=== PATIENT | male | born 1975 | race Hispanic/Latino ===

== ENCOUNTER 2018-06-12 17:04 | Inpatient (IN) | payer OTHER, SELFPAY ==
[~2018-06-12 17:04] MED LIST: ISOVUE-370 76%-LOCM 1 ML ONE
[2018-06-12] MEDS ORDERED: Amiodarone 150 MG/3 ML VIAL ONE (17:32)
[2018-06-12 17:42] LABS: Actual Bicarbonate (HCO3a) 3.2 mEq/L (22-28); Analyzer IN Cardio ER; Base Excess (BEa) -21.5 mEq/L (-2.0 to +3.0); Calcium, Ionized 1.47 mmol/L (1.12-1.30); Carboxyhemoglobin (COHb) 0.3 gm% (0.0-3.0); Hemoglobin (Hb) 17.7 g/dL (14.0-18.0); O2 Tension (PaO2) 133.1 mmHg (80.0-100.0); Potassium - ABG Lab 1.56 mmol/L (3.70-5.30)
[2018-06-12] MEDS ORDERED: Aspirin Chewable 81 MG TAB ONE (17:42)
[2018-06-12] MEDS ORDERED: Amiodarone 150 MG, Admixture Fee 1 EACH in Dextrose 5% in Water 100 ML IVPB SCH (17:45)
[2018-06-12] MEDS ORDERED: Amiodarone 450 MG, Admixture Fee 1 EACH in Dextrose 5% in Water 250 ML IVPB SCH (17:45)
--- NOTE | 2018-06-12 17:45 | RAD ---
FRONTAL RADIOGRAPH CHEST 06/12/18 COMPARISON: None. HISTORY: Short of breath. FINDINGS: Lungs are clear. Heart and mediastinal contours are unremarkable. No focal consolidation or alveolar edema. IMPRESSION: No acute findings. POS: [facility]
[2018-06-12 17:56] LABS: pH, Arterial 7.19 (7.35-7.45)
[2018-06-12 17:57] LABS: CO2 Tension 8.6 mmHg (35.0-45.0); Puncture Site L.B.
[2018-06-12 18:23] LABS: Hemoglobin 17.3 g/dL (14.0-18.0); Mean Corpuscular HGB CONC 33.7 g/dL (32.0-36.0); Mean Corpuscular Hemoglobin 31.3 pg (27.0-31.0); Mean Corpuscular Volume 92.9 fL (78.0-98.0); Mean Platelet Volume 8.4 fL (7.4-10.4); Platelet Count 420 thou/uL (130-400); RBC Distribution Width 12.1 % (11.5-14.5); Red Blood Cell (RBC) Count 5.53 mill/uL (4.70-6.10); White Blood Cell (WBC) Count 22.8 thou/uL (4.8-10.8)
[2018-06-12 18:39] LABS: Band 42 % (5-11); Eosinophils 1 % (0-10); Lymphocytes 9 % (21-51); MDiff Complete? YES; Monocytes 7 % (0-10); Neutrophil 41 % (42-75); Platelet Morphology Comment Appears Increased
[2018-06-12 18:48] LABS: ALT (SGPT) 95 U/L (8-55); AST (SGOT) 43 U/L (5-34); Albumin 3.5 g/dL (3.5-5.0); Alkaline Phosphatase 191 U/L (40-150); BUN (Urea Nitrogen) 24 mg/dL (8.9-20.6); Bilirubin, Total 0.7 mg/dL (0.2-1.2); CK (CPK) 298 U/L (30-200); Calc. Creatinine Clearance 0 mL/min (70-130); Chloride 95 mmol/L (98-107); Estimated GFR-MDRD 52; Globulin 3.3 g/dL (2.4-3.5); Lipase 11 U/L (8-78); Protein, Total 6.8 g/dL (6.0-8.3); Sodium 122 mmol/L (136-145)
[2018-06-12 18:51] LABS: Carbon Dioxide Less than 8 mmol/L (22-29); Glucose 599 mg/dL (70-105); Potassium 1.2 mmol/L (3.5-5.1)
[2018-06-12] MEDS ORDERED: Potassium Chloride 20 MEQ TAB ONE (18:57)
[2018-06-12] MEDS ORDERED: Potassium Chloride 40 MEQ in Sodium Chloride 0.45% 1,000 ML IV SCH (19:15)
--- NOTE | 2018-06-12 19:51 | RAD ---
SEMIUPRIGHT FRONTAL CHEST RADIOGRAPH: 06/12/18 COMPARISON: Prior study on same day. HISTORY: Fever for two days. FINDINGS: There is a right sided vascular catheter, distal tip extending into the region of the right atrium. N o pneumothorax, pleural fluid, lobar consolidation, or alveolar edema. IMPRESSION: No focal consolidation or alveolar edema. POS: [facility]
--- NOTE | 2018-06-12 20:32 | RAD ---
PORTABLE SEMIUPRIGHT FRONTAL CHEST RADIOGRAPH 06/12/18 COMPARISON: Prior study on same day. FINDINGS: Line placement. FINDINGS: Right sided vascular catheter noted, distal tip overlying the expected location of the cavoatrial constantino ction. Heart and mediastinal contours are stable. No pneumothorax, pleural fluid, focal consolidation , or alveolar edema. IMPRESSION: Right sided vascular catheter as above. POS: [facility]
[2018-06-12] MEDS ORDERED: Magnesium 2 GM/50 ML BAG (IN WATER) ONE (20:41)
[2018-06-12 20:47] LABS: Bilirubin Moderate (Negative); Blood, Urine Large (Negative); Clarity CLEAR (Clear); Glucose, Urine (Dipstick) >=1000 mg/dL (Negative); Leukocyte Negative (Negative); Nitrite Negative (Negative); Protein, Urine (Dipstick) 100 mg/dL (Neg-Trace); Specific Gravity, Urine 1.022 (1.002-1.036); pH, Urine 6.5 (5.0-9.0)
[2018-06-12 20:50] LABS: Bacteria/HPF None Seen HPF (None Seen); RBC/HPF 0-3 HPF (0-3); WBC/HPF 0-3 HPF (0-3)
[2018-06-12 20:51] LABS: Hyaline Casts/LPF 0-3 HYALINE CAST LPF (0-3 Hyaline)
[2018-06-12 21:05] LABS: BUN (Urea Nitrogen) 24 mg/dL (8.9-20.6); Calc. Creatinine Clearance 0 mL/min (70-130); Calcium 9.5 mg/dL (7.8-10.44); Chloride 99 mmol/L (98-107); Estimated GFR-MDRD 56; Sodium 125 mmol/L (136-145)
[2018-06-12 21:07] LABS: Carbon Dioxide Less than 8 mmol/L (22-29); Glucose 558 mg/dL (70-105); Potassium 1.3 mmol/L (3.5-5.1)
--- NOTE | 2018-06-12 21:53 | CT ---
CT ANGIOGRAM CHEST 06/12/18 COMPARISON: None. HISTORY: Assess for pulmonary arterial embolism. TECHNIQUE: Axial CT imaging at 2.5 mm intervals through the chest with IV contrast using CT angiogram protocol. Coronal and sagittal 3D reformatted imaging obtained. FINDINGS: Motion artifact limits detailed assessment of the distal pulmonary arterial vasculature. Centrally, t here is no filling defect seen to suggest the presence of pulmonary arterial embolism. There is no axillary, mediastinal, or hilar adenopathy. Incomplete evaluation of the imaged upper abdomen demonstrates nonspecific distention of small bowel loops within the left upper quadrant. the hepatic parenchyma appears hypodense suggesting a degree of steatosis. No pleural, pericardial, or mediastinal fluid is seen. there is mild distal esophageal wall thickenin g versus underdistention. There is no pneumothorax evident on either side. Lung parenchyma demonstrat es no focal opacity. Review of the osseous structures demonstrates no worrisome lytic or blastic lesi on. IMPRESSION: No evidence for a central pulmonary arterial embolism. Please see above discussion. Of note, there ar e incompletely evaluated dilated loops of small bowel noted within the left upper quadrant which coul d signify ileus or obstruction. POS: [facility]
[2018-06-12 22:06] VITALS: BMI 42.7
[2018-06-12] MEDS ORDERED: Sodium Chloride 0.9% 1,000 ML IV PRN ×4 (22:07)
[2018-06-12] MEDS ORDERED: Potassium Phosphate 15 MMOL in Sodium Chloride 0.9% 250 ML 250 ML IV PRN (22:07)
[2018-06-12] MEDS ORDERED: Magnesium Oxide 400 MG TAB PO PRN ×2 (22:07)
[2018-06-12] MEDS ORDERED: Potassium Chloride 40 MEQ in Premix Bag 1 BAG IVPB PRN (22:07)
[2018-06-12] MEDS ORDERED: NS 0.9% w/ 20 MEQ KCL 1,000 ML/1,000 ML BAG IV PRN ×2 (22:07)
[2018-06-12] MEDS ORDERED: Dextrose 5 %-0.45 % NaCl 1,000 ML IV PRN (22:07)
[2018-06-12] MEDS ORDERED: Magnesium 2 GM/NS 0.9% 100 ML 2 GM in Premix Bag 1 BAG IVPB PRN (22:07)
[2018-06-12] MEDS ORDERED: Potassium Phosphate 12 MMOL in Sodium Chloride 0.9% 250 ML 250 ML IV PRN (22:07)
[2018-06-12] MEDS ORDERED: CCU ELECTROLYTE REPLACEMENT PROTOCOL FS PRN (22:07)
[2018-06-12] MEDS ORDERED: Potassium Chloride 20 MEQ TAB PO PRN (22:07)
[2018-06-12] MEDS ORDERED: Potassium Chloride 40 MEQ in Sodium Chloride 0.9% 250 ML 250 ML IVPB PRN (22:07)
[2018-06-12] MEDS ORDERED: Potassium Phosphate 9 MMOL in Sodium Chloride 0.9% 100 ML IVPB PRN (22:07)
[2018-06-12] MEDS ORDERED: Dextrose 5% in Water 1,000 ML IV PRN (22:07)
[2018-06-12] MEDS ORDERED: Dextrose 50% Abboject 50 ML SYRINGE SLOW IVP PRN (22:07)
[2018-06-12] MEDS ORDERED: D5 1/2 NS w/20 mEq KCL 1,000 ML IV PRN (22:07)
[2018-06-12] MEDS ORDERED: ADD ELECTROLYTE REPLACEMENT SET TO PROFILE FS SCH (22:15)
[2018-06-12] MEDS ORDERED: HUMULIN R 100 UNITS in Sodium Chloride 0.9% 100 ML IVPB SCH (22:15)
[2018-06-12] MEDS ORDERED: Magnesium 2 GM/50 ML 2 GM in Premix Bag 1 BAG IVPB PRN (22:52)
[2018-06-12 22:58] LABS: Lactic Acid 0.9 mmol/L (0.5-2.2)
[2018-06-12] MEDS ORDERED: Potassium Chloride 20 MEQ in Premix Bag 1 BAG IVPB PRN (23:00)
[2018-06-12] MEDS ORDERED: Potassium Chloride 20 MEQ in Premix Bag 1 BAG IVPB SCH (23:15)
[2018-06-12] MEDS: Sodium Chloride 0.9% 1,000 ML IV SCH ×2 (23:35→23:36)
[2018-06-13 01:19] LABS: BUN (Urea Nitrogen) 24 mg/dL (8.9-20.6); Calc. Creatinine Clearance 157 mL/min (70-130); Calcium 9.4 mg/dL (7.8-10.44); Chloride 104 mmol/L (98-107); Estimated GFR-MDRD 66; Glucose 487 mg/dL (70-105); Magnesium 3.6 mg/dL (1.6-2.6); Sodium 127 mmol/L (136-145)
[2018-06-13 01:26] LABS: Carbon Dioxide Less than 8 mmol/L (22-29); Potassium 1.5 mmol/L (3.5-5.1)
[2018-06-13] MEDS: Potassium Chloride 20 MEQ in Premix Bag 1 BAG IVPB PRN ×6 (01:35→07:47)
--- NOTE | 2018-06-13 02:43 | CON ---
DATE OF CONSULTATION: 06/12/2018 This is 45 minutes of critical care time. REASON FOR CONSULTATION: Diabetic ketoacidosis in the setting of severe hypokalemia. HISTORY OF PRESENT ILLNESS: Mr. Oakley is a 43-year-old male, who basically is new to the medical system. He presents to the ER complaining of shortness of breath that started earlier this morning. When questioned more closely, the patient states that he has been feeling poorly for the last 3 weeks. He has gotten extremely dehydrated as he has not been eating or drinking very much. He states that he has had some nausea and vomiting. He has been unable to move his arms or legs very well for the last several hours. ER workup demonstrated new onset diabetic ketoacidosis. However, his potassium was extremely low at 1.9, which in itself is a surprising finding in someone with DKA. This patient has been appropriately and aggressively treated by Dr. Rosario in the ER. He was placed on BiPAP. He has been aggressively fluid resuscitated and had a central line placed for the purpose of being able to give potassium at a more diligent rate than usual. The patient has not received any insulin yet as to keep his potassium from going any further. The patient has also not received any bicarbonate therapy. PAST MEDICAL HISTORY: Essentially unremarkable as the patient says he has never gone to a doctor for medical care. ALLERGIES: PENICILLIN. MEDICATIONS: Prior to admission, none. SOCIAL HISTORY: This patient quit smoking about 15 years ago. He does smoke marijuana daily. 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 He drinks socially. FAMILY MEDICAL HISTORY: Unremarkable. REVIEW OF SYSTEMS: A 12-point review of systems is otherwise negative except as mentioned above. PHYSICAL EXAMINATION: VITAL SIGNS: His blood pressure is 136/76, pulse 94, respirations 26, O2 saturation 99% on BiPAP. GENERAL: He is awake. He is talkative. BiPAP mask. HEENT: His pupils are reactive. Sclerae icteric. Oropharynx clear. NECK: Demonstrates no JVD. LUNGS: Clear to auscultation, but his respiratory rate is slightly tachypneic. CARDIOVASCULAR: S1 and S2. Tachycardic without murmur. ABDOMEN: Soft, obese, nontender, and nondistended. EXTREMITIES: No clubbing, cyanosis, or edema. NEUROLOGICAL: He can move all 4 extremities. His strength is 4+/5 throughout. There are no focal deficits. He has full sensation intact throughout. Cranial nerves 2 through 12 are intact. LABORATORY DATA: Sodium 122, but corrects to 134 for glucose level, potassium 1.2, chloride 95, CO2 of 8, BUN 24, creatinine 1.5, calcium level is 10.0, magnesium 3.5, glucose 533, AST 43, ALT 95, alkaline phosphatase 191, CPK 298, troponin less than 0.01, BNP was 45. ABG; pH 7.19, pCO2 of 8.6, PO2 of 133 that was on 2 L nasal cannula. D-dimer 3.2. White blood cell count 22.8, hematocrit 51.4, and platelet count 420 with 41% neutrophils, 42% bands. Urinalysis demonstrated large amount of blood. He had ketones present. His tox screen showed beta hydroxybutyrate of 7.9. My preliminary review of CT angiogram of the chest did not show any evidence of pulmonary emboli. I do not see any infiltrates. He has a IJ line in an appropriate position. His EKG shows ST-segment depression, primarily in leads 2, 3, V5, and V6. He has U wave present. ASSESSMENT: 1. Diabetic ketoacidosis. 2. Severe hypokalemia. 3. Metabolic acidosis from the diabetic ketoacidosis. 4. Respiratory compromise secondary to patient's compensating efforts for the diabetic ketoacidosis. RECOMMENDATIONS: 1. Discussed this in detail with Dr. Rosario, also reviewed literature. This patient's glucose should not be corrected with insulin at this time until potassium is improved to a safe level. My review suggests that it needs to be around 2.7 before it is safe to start insulin. 2. Potassium needs to be aggressively repleted. I am reading that this can occur as rapidly as 5 millimoles per kg per hour. I think realistically 30 millimoles per hour would be reasonable on the patient. 3. He needs to have normal saline aggressively replaced. I think his corrected sodium is about 134, so I do not think we are in a situation where we have to worry about central pontine myelinolysis. 4. We will monitor his Accu-Cheks closely and start insulin once his potassium reaches about 2.8. At that point, insulin will be given very slowly as we are not in a hurry to correct his blood sugar. 5. Empiric antibiotics. Job ID: [id number]
--- NOTE | 2018-06-13 03:24 | HP ---
PRIMARY CARE PHYSICIAN: The patient does not have a primary care physician. CHIEF COMPLAINT: Stomach problems and vomiting. HISTORY OF PRESENT ILLNESS: Mr. Oakley is a pleasant 43-year-old gentleman who has had previously no known past medical history. He says it has been several years since he has seen a physician. He says that he noticed some problems about 2 weeks ago. He said he was having "stomach problems" in which he started vomiting and lost his appetite. He says he could not eat or drink anything. He says then he had problems with "his breathing being bad." This went on for several days and as a result, he came to the ER for evaluation. He was evaluated and found that his blood sugar was over 500. His bicarb was less than 8 and he had a potassium of 1.3, and his beta hydroxybutyrate is elevated, and he is being admitted for DKA as well as severe hypokalemia. The patient denies any other complaints such as fevers or chills. He says he denies any cough or congestion. He says he has been a bit constipated, but no diarrhea. He does admit to some "abdominal soreness," but otherwise no other complaints. REVIEW OF SYSTEMS: All systems were reviewed and are negative except for that mentioned in the history of present illness. PAST MEDICAL HISTORY: Significant for diverticulitis. PAST SURGICAL HISTORY: Significant for tonsillectomy. ALLERGIES: PENICILLIN. SOCIAL HISTORY: He is single. He has no children. He is a former smoker. He says he quit 15 years ago. He occasionally drink and he is a full code. FAMILY HISTORY: No history of any heritable diseases. MEDICATIONS: On admission were none. PHYSICAL EXAMINATION: GENERAL: He is awake and alert. He appears to be in some mild distress due to dyspnea. He is well developed and well nourished. VITAL SIGNS: Blood pressure was 136/76, heart rate 94, respiratory rate of 26, temperature, he is afebrile. HEENT: Pupils are equal, round, and reactive. Extraocular muscles are intact. Sclerae anicteric. Throat, there is no erythema, no exudates. NECK: No adenopathy. No bruits. LUNGS: Clear to auscultation. There is no wheezing, no rales, no rhonchi. CARDIOVASCULAR: He has a normal S1 and S2. I did not appreciate an S3 or S4. No murmurs, clicks, or rubs. ABDOMEN: Obese. It is soft. He has some diffuse tenderness. There is no rebound, no guarding, no organomegaly. EXTREMITIES: There is no clubbing or cyanosis. No edema. NEUROLOGICAL: His exam is grossly nonfocal. His muscle strength is 5/5 in both his upper and lower extremities. SKIN AND INTEGUMENT: There are no skin changes. No rash. LABORATORY DATA: White blood cell count is 22.8, hemoglobin 17.3, hematocrit 51.4, platelet count is 420. D-dimer is 3.19. His ABG; pH is 7.19, pCO2 is 8.6, pO2 is 133. Chemistry; sodium 125, potassium 3.1, chloride is 99, CO2 is less than 8, BUN of 24, creatinine 1.4, glucose is 558. Urinalysis is significant for large blood, moderate bilirubin, and 46 squamous cells. Chest x-ray, by my reading, he is borderline heart size with no increase in pulmonary vascular markings. EKG also, by my reading, he is in sinus rhythm, the rate is 86. He did have some ST-segment depression laterally and possible U wave as well. ASSESSMENT: This is a pleasant 43-year-old gentleman, who presents to the emergency room in diabetic ketoacidosis. He also has severe hypokalemia. The patient had no known history of diabetes mellitus prior to this, and this is likely which may have precipitated the diabetic ketoacidosis. 1. For diabetic ketoacidosis, he will be placed on IV fluid resuscitation. We will hold off on an insulin drip until his serum potassium comes with in a safer range. This has been discussed with the Pulmonary technical specialist here in the ER. Once his potassium is above 2.4 or so, then we can start an insulin drip. 2. Severe hypokalemia. This will be replaced. It is unclear whether this is related to vomiting losses. 3. Acute kidney injury. This is likely due to volume depletion. Hopefully, this should correct with fluid resuscitation. 4. Once the patient has improved clinically, then discussions can be made with regard to proper diabetic care and management and followup. Job ID: [id number]
[2018-06-13] MEDS: Sodium Chloride 0.9% 1,000 ML IV SCH ×5 (03:36→11:16)
[2018-06-13 05:13] LABS: BUN (Urea Nitrogen) 25 mg/dL (8.9-20.6); Calc. Creatinine Clearance 157 mL/min (70-130); Calcium 9.3 mg/dL (7.8-10.44); Carbon Dioxide Less than 8 mmol/L (22-29); Chloride 105 mmol/L (98-107); Estimated GFR-MDRD 66; Glucose 458 mg/dL (70-105); Magnesium 3.6 mg/dL (1.6-2.6); Phosphorus 1.3 mg/dL (2.3-4.7); Potassium 1.7 mmol/L (3.5-5.1); Sodium 127 mmol/L (136-145)
[2018-06-13] MEDS ORDERED: Potassium Phosphate 40 MMOL in Sodium Chloride 0.9% 500 ML IVPB SCH (08:00)
--- NOTE | 2018-06-13 08:25 | PRG ---
DATE OF SERVICE: 06/13/2018 TIME SPENT: 30 minutes of critical care time. SUBJECTIVE: The patient remains in the ICU. He has been able to come off the BiPAP. He looks comfortable. He says he feels better. He is still having trouble moving his large muscles. OBJECTIVE: VITAL SIGNS: His pulse is 88, blood pressure 120/64, O2 saturation 97%, respiratory rate 30, and his temperature is 98.0. His intake has been over his output has been 2625. Weight currently 306 pounds. HEENT: Unremarkable. NECK: No JVD. CHEST: Clear. CARDIAC: S1, S2 regular. ABDOMEN: Soft and obese. EXTREMITIES: No edema. NEUROLOGICAL: He moves all 4 extremities. LABORATORY DATA: Sodium 127; potassium 1.7, up from 1.2; chloride 105; CO2 of 8; BUN 25; creatinine 1.2; glucose 458; phosphorus 1.3; calcium 9.3; magnesium 3.6. ASSESSMENT: 1. Diabetic ketoacidosis. 2. Severe hypokalemia. 3. Metabolic acidosis secondary to diabetic ketoacidosis. PLAN: 1. We are continuing to aggressively replace his potassium with a goal of reaching 2.7 to 2.8 before starting insulin. 2. Replace phosphate. 3. Continue frequent lab checks. 4. BiPAP as needed. Job ID: [id number]
[2018-06-13] MEDS: Famotidine/PF 20 mg/2ml Vial SLOW IVP SCH ×2 (08:26→20:36)
[2018-06-13] MEDS: Enoxaparin Sodium 40 MG/0.4 ML SYRINGE SC SCH (08:26)
[2018-06-13] MEDS ORDERED: Prevnar 13-Val Conj/PF 0.5 ML SYRINGE IM ONE (09:00)
[2018-06-13 10:03] LABS: BUN (Urea Nitrogen) 24 mg/dL (8.9-20.6); Calc. Creatinine Clearance 151 mL/min (70-130); Calcium 8.9 mg/dL (7.8-10.44); Carbon Dioxide Less than 8 mmol/L (22-29); Chloride 109 mmol/L (98-107); Estimated GFR-MDRD 63; Glucose 400 mg/dL (70-105); Magnesium 3.8 mg/dL (1.6-2.6); Phosphorus 1.6 mg/dL (2.3-4.7); Potassium 2.7 mmol/L (3.5-5.1); Sodium 131 mmol/L (136-145)
[2018-06-13 13:40] LABS: BUN (Urea Nitrogen) 25 mg/dL (8.9-20.6); Calc. Creatinine Clearance 157 mL/min (70-130); Calcium 8.8 mg/dL (7.8-10.44); Carbon Dioxide Less than 8 mmol/L (22-29); Chloride 110 mmol/L (98-107); Estimated GFR-MDRD 66; Glucose 402 mg/dL (70-105); Magnesium 3.5 mg/dL (1.6-2.6); Phosphorus 2.5 mg/dL (2.3-4.7); Potassium 3.2 mmol/L (3.5-5.1); Sodium 132 mmol/L (136-145)
[2018-06-13] MEDS ORDERED: Dextrose 5% in Water 1,000 ML IV PRN (14:35)
[2018-06-13] MEDS ORDERED: Dextrose 5 %-0.45 % NaCl 1,000 ML IV PRN (14:35)
[2018-06-13] MEDS ORDERED: Sodium Chloride 0.9% 1,000 ML IV PRN ×4 (14:35)
[2018-06-13] MEDS ORDERED: Potassium Phosphate 15 MMOL in Sodium Chloride 0.9% 250 ML 250 ML IV PRN (14:35)
[2018-06-13] MEDS ORDERED: Potassium Phosphate 12 MMOL in Sodium Chloride 0.9% 250 ML 250 ML IV PRN (14:35)
[2018-06-13] MEDS ORDERED: Magnesium 2 GM/NS 0.9% 100 ML 2 GM in Premix Bag 1 BAG IVPB PRN (14:35)
[2018-06-13] MEDS ORDERED: Potassium Chloride 40 MEQ in Sodium Chloride 0.9% 250 ML 250 ML IVPB PRN (14:35)
[2018-06-13] MEDS ORDERED: Dextrose 50% Abboject 50 ML SYRINGE SLOW IVP PRN (14:35)
[2018-06-13] MEDS ORDERED: Magnesium Oxide 400 MG TAB PO PRN ×2 (14:35)
[2018-06-13] MEDS ORDERED: CCU ELECTROLYTE REPLACEMENT PROTOCOL FS PRN (14:35)
[2018-06-13] MEDS ORDERED: Potassium Chloride 20 MEQ TAB PO PRN (14:35)
[2018-06-13] MEDS: Potassium Chloride 40 MEQ in Premix Bag 1 BAG IVPB PRN ×2 (14:41→17:46)
[2018-06-13] MEDS: NS 0.9% w/ 20 MEQ KCL 1,000 ML/1,000 ML BAG IV PRN ×4 (14:42→22:25)
[2018-06-13] MEDS ORDERED: Insulin Regular 300 UNITS/3 ML VIAL IVP SCH (14:45)
[2018-06-13] MEDS: Calcium Carbonate 500 MG ChewTAB PO PRN ×2 (15:17→19:34)
[2018-06-13] MEDS: HUMULIN R 100 UNITS in Sodium Chloride 0.9% 100 ML IVPB SCH ×2 (15:36→19:54)
[2018-06-13] MEDS ORDERED: Labetalol HCl 100 MG/20 ML VIAL ONE (17:12)
[2018-06-13 17:42] LABS: BUN (Urea Nitrogen) 23 mg/dL (8.9-20.6); Calc. Creatinine Clearance 166 mL/min (70-130); Calcium 8.5 mg/dL (7.8-10.44); Carbon Dioxide Less than 8 mmol/L (22-29); Chloride 116 mmol/L (98-107); Estimated GFR-MDRD 70; Glucose 287 mg/dL (70-105); Magnesium 2.9 mg/dL (1.6-2.6); Potassium 2.6 mmol/L (3.5-5.1); Sodium 137 mmol/L (136-145)
[2018-06-13] MEDS ORDERED: Potassium Phosphate 20 MMOL in Sodium Chloride 0.9% 250 ML 250 ML IV SCH (19:00)
--- NOTE | 2018-06-13 19:41 | PDOC.PN ---
- Subjective Encounter Start Date: 06/13/18 Encounter Start Time: 19:39 Subjective: Seen and examined still ill looking - Objective Vital Signs & Weight: Vital Signs (12 hours) Temp Pulse Pulse Ox 06/13/18 17:46 83 06/13/18 15:49 98.0 F 06/13/18 15:45 98.0 F 06/13/18 11:48 97.4 F L 06/13/18 11:00 97.8 F 06/13/18 08:00 96 Weight Weight 306 lb 0.026 oz Most Recent Monitor Data Heart Rate from ECG 95 NIBP 120/83 NIBP BP-Mean 95 Respiration from ECG 32 SpO2 96 I&O: 06/12/18 06/13/18 06/14/18 06:59 06:59 06:59 Intake Total 1481 5459 Output Total 2625 2550 Balance -1144 2909 Result Diagrams: 06/12/18 18:12 06/13/18 16:55 Additional Labs: Accuchecks 06/13/18 06/13/18 06/13/18 18:57 17:59 16:57 POC Glucose 164 H 213 H 264 H 06/13/18 06/13/18 06/13/18 16:06 15:07 12:59 POC Glucose 342 H 366 H 346 H 06/13/18 06/13/18 06/13/18 11:54 11:03 10:10 POC Glucose 376 H 340 H 372 H 06/13/18 06/13/18 06/13/18 09:18 08:14 07:27 POC Glucose 369 H 366 H 398 H 06/13/18 06/13/18 06/13/18 06:11 05:03 04:03 POC Glucose 428 H 382 H 394 H 06/13/18 06/13/18 06/13/18 03:06 02:19 00:49 POC Glucose 403 H 416 H 410 H 06/13/18 06/12/18 06/12/18 00:06 23:23 21:51 POC Glucose 418 H 436 H 435 H 06/12/18 19:24 POC Glucose 533 H Phys Exam - Physical Examination Constitutional: NAD HEENT: PERRLA, moist MMs, sclera anicteric, TM's clear Neck: no nodes, no JVD, supple, full ROM Respiratory: no wheezing, no rales, no rhonchi, clear to auscultation bilateral Cardiovascular: RRR, no significant murmur, no rub Gastrointestinal: positive bowel sounds obese ++++ Musculoskeletal: no edema, pulses present Neurological: non-focal, normal sensation, moves all 4 limbs Dx/Plan (1) DKA, type 2 Code(s): E11.10 - TYPE 2 DIABETES MELLITUS WITH KETOACIDOSIS WITHOUT COMA Status: Acute (2) Metabolic acidosis due to diabetes mellitus Code(s): E11.69 - TYPE 2 DIABETES MELLITUS WITH OTHER SPECIFIED COMPLICATION; E87.2 - ACIDOSIS Status: Acute (3) Obesity Code(s): E66.9 - OBESITY, UNSPECIFIED Status: Acute (4) Hypokalemia Code(s): E87.6 - HYPOKALEMIA Status: Acute (5) Hypophosphatemia Code(s): E83.39 - OTHER DISORDERS OF PHOSPHORUS METABOLISM Status: Acute - Plan 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
[2018-06-13 21:59] LABS: Anion Gap 12 mmol/L (10-20); BUN (Urea Nitrogen) 22 mg/dL (8.9-20.6); Calc. Creatinine Clearance 205 mL/min (70-130); Calcium 8.8 mg/dL (7.8-10.44); Carbon Dioxide 11 mmol/L (22-29); Chloride 119 mmol/L (98-107); Estimated GFR-MDRD 90; Glucose 126 mg/dL (70-105); Magnesium 2.8 mg/dL (1.6-2.6); Phosphorus Less than 1.0 mg/dL (2.3-4.7); Potassium 3.2 mmol/L (3.5-5.1); Sodium 139 mmol/L (136-145)
[2018-06-13] MEDS ORDERED: Mag-Al 1200 mg/1200 mg/30 ML UDCUP PO PRN (22:28)
[2018-06-13] MEDS ORDERED: Calcium Carbonate 500 MG ChewTAB PO PRN (22:28)
[2018-06-13] MEDS ORDERED: Acetaminophen 325 MG TAB PO PRN (22:28)
[2018-06-13] MEDS ORDERED: Mag-Al Plus 1200 MG/1200 MG/120 MG/30 ML UDCUP PO PRN (22:28)
[2018-06-13] MEDS ORDERED: Simethicone Chewable 80 MG TAB PO PRN (22:28)
[2018-06-14] MEDS ORDERED: Polyethylene Glycol 3350 17 GM Packet PO PRN (01:19)
[2018-06-14 01:39] LABS: BUN (Urea Nitrogen) 25 mg/dL (8.9-20.6); Calc. Creatinine Clearance 205 mL/min (70-130); Calcium 8.7 mg/dL (7.8-10.44); Carbon Dioxide Less than 8 mmol/L (22-29); Chloride 117 mmol/L (98-107); Estimated GFR-MDRD 90; Glucose 240 mg/dL (70-105); Phosphorus 1.6 mg/dL (2.3-4.7); Potassium 3.9 mmol/L (3.5-5.1); Sodium 136 mmol/L (136-145)
[2018-06-14] MEDS: NS 0.9% w/ 20 MEQ KCL 1,000 ML/1,000 ML BAG IV PRN (02:33)
[2018-06-14] MEDS: Potassium Phosphate 9 MMOL in Sodium Chloride 0.9% 100 ML IVPB PRN ×2 (02:41→22:07)
[2018-06-14 05:06] LABS: Anion Gap 15 mmol/L (10-20); Carbon Dioxide 9 mmol/L (22-29); Chloride 118 mmol/L (98-107); Potassium 3.8 mmol/L (3.5-5.1); Sodium 138 mmol/L (136-145)
[2018-06-14 05:07] LABS: BUN (Urea Nitrogen) 27 mg/dL (8.9-20.6); Calc. Creatinine Clearance 203 mL/min (70-130); Calcium 8.9 mg/dL (7.8-10.44); Estimated GFR-MDRD 89; Glucose 249 mg/dL (70-105); Phosphorus 1.1 mg/dL (2.3-4.7)
[2018-06-14] MEDS: D5 1/2 NS w/20 mEq KCL 1,000 ML IV PRN ×2 (06:27→10:36)
[2018-06-14] MEDS: Enoxaparin Sodium 40 MG/0.4 ML SYRINGE SC SCH (09:30)
[2018-06-14] MEDS: Pantoprazole 40 MG VIAL IVP SCH (09:30)
[2018-06-14] MEDS: Famotidine/PF 20 mg/2ml Vial SLOW IVP SCH ×2 (09:31→20:01)
--- NOTE | 2018-06-14 09:34 | PRG ---
DATE OF SERVICE: 06/14/2018 SUBJECTIVE: Mr. Oakley is complaining of nausea. He is having some foul dark emesis. He says his muscle strength is better. OBJECTIVE: VITAL SIGNS: On exam, his temperature is 98.8, pulse 107, blood pressure 127/86, and 24-hour intake 9853, output 3705. His current fluid appears to be normal saline with 20 of K at 250 mL/h. HEENT: Unremarkable. NECK: No JVD. LUNGS: Clear. CARDIAC: S1 and S2. Slightly tachycardic. ABDOMEN: Distended. Bowel sounds quiet. EXTREMITIES: No edema. LABORATORY DATA: Sodium 138, potassium 3.8, chloride 119, CO2 of 9, BUN 27, creatinine 0.9, glucose 249. White blood cell count 22.8, hematocrit 51.4, and platelet count 420. KUB is basically uninterpretable. ASSESSMENT: 1. Diabetic ketoacidosis with closed anion gap. 2. Type 1 renal tubular acidosis. 3. Severe hypokalemia, which has improved. PLAN: 1. Place NG tube and decompress stomach. 2. Continue potassium phosphorus supplementation. 3. Add Protonix. 4. Continue to monitor electrolytes. Job ID: [id number]
--- NOTE | 2018-06-14 09:40 | RAD ---
DECUBITUS VIEW OF ABDOMEN: FINDINGS: A left lateral decubitus view obtained with right side up. There are gas-filled dilated loops of sma ll bowel which exhibit differential air fluid levels. Findings are concerning for small bowel obstru ction given the findings on this 1-view study. POS: [facility]
[2018-06-14 09:50] LABS: Anion Gap 12 mmol/L (10-20); BUN (Urea Nitrogen) 30 mg/dL (8.9-20.6); Calc. Creatinine Clearance 197 mL/min (70-130); Carbon Dioxide 11 mmol/L (22-29); Chloride 118 mmol/L (98-107); Estimated GFR-MDRD 86; Glucose 221 mg/dL (70-105); Phosphorus Less than 1.0 mg/dL (2.3-4.7); Potassium 3.8 mmol/L (3.5-5.1); Sodium 137 mmol/L (136-145)
[2018-06-14] MEDS: HUMULIN R 100 UNITS in Sodium Chloride 0.9% 100 ML IVPB SCH (13:13)
[2018-06-14 14:01] LABS: Anion Gap 10 mmol/L (10-20); BUN (Urea Nitrogen) 26 mg/dL (8.9-20.6); Calc. Creatinine Clearance 228 mL/min (70-130); Calcium 8.9 mg/dL (7.8-10.44); Carbon Dioxide 14 mmol/L (22-29); Chloride 121 mmol/L (98-107); Estimated GFR-MDRD Greater than 90; Glucose 206 mg/dL (70-105); Potassium 3.5 mmol/L (3.5-5.1); Sodium 141 mmol/L (136-145)
--- NOTE | 2018-06-14 14:13 | PDOC.PN ---
- Subjective Encounter Start Date: 06/14/18 Encounter Start Time: 14:12 Subjective: Seen and examined still very ill looking-- - Objective Vital Signs & Weight: Vital Signs (12 hours) Temp Pulse Ox 06/14/18 12:00 98.4 F 95 06/14/18 08:00 99.0 F 96 06/14/18 04:00 98.8 F Weight Weight 306 lb 0.026 oz Most Recent Monitor Data Heart Rate from ECG 114 NIBP 90/59 NIBP BP-Mean 69 Respiration from ECG 39 SpO2 96 I&O: 06/13/18 06/14/18 06/15/18 06:59 06:59 06:59 Intake Total 1481 9853.1 Output Total 2625 3705 3570 Balance -1144 6148.1 -3570 Result Diagrams: 06/12/18 18:12 06/14/18 13:11 Additional Labs: Accuchecks 06/14/18 06/14/18 06/14/18 13:10 12:23 11:29 POC Glucose 192 H 205 H 210 H 06/14/18 06/14/18 06/14/18 10:20 09:01 08:12 POC Glucose 218 H 192 H 196 H 06/14/18 06/14/18 06/14/18 07:03 06:08 05:05 POC Glucose 187 H 185 H 203 H 06/14/18 06/14/18 06/14/18 04:07 03:10 02:17 POC Glucose 227 H 224 H 235 H 06/14/18 06/14/18 06/13/18 01:06 00:23 23:06 POC Glucose 222 H 199 H 178 H 06/13/18 06/13/18 06/13/18 22:06 20:59 20:06 POC Glucose 148 H 121 H 124 H 06/13/18 06/13/18 06/13/18 18:57 17:59 16:57 POC Glucose 164 H 213 H 264 H 06/13/18 06/13/18 16:06 15:07 POC Glucose 342 H 366 H Phys Exam - Physical Examination Constitutional: NAD NG tube inplace HEENT: PERRLA, moist MMs, sclera anicteric Neck: no nodes, no JVD, supple, full ROM Respiratory: no wheezing, no rales, no rhonchi, clear to auscultation bilateral Cardiovascular: RRR, no significant murmur, no rub Gastrointestinal: positive bowel sounds Distended Musculoskeletal: no edema, pulses present Neurological: non-focal, normal sensation, moves all 4 limbs Dx/Plan (1) DKA, type 2 Code(s): E11.10 - TYPE 2 DIABETES MELLITUS WITH KETOACIDOSIS WITHOUT COMA Status: Acute (2) Metabolic acidosis due to diabetes mellitus Code(s): E11.69 - TYPE 2 DIABETES MELLITUS WITH OTHER SPECIFIED COMPLICATION; E87.2 - ACIDOSIS Status: Acute (3) Obesity Code(s): E66.9 - OBESITY, UNSPECIFIED Status: Acute (4) Hypokalemia Code(s): E87.6 - HYPOKALEMIA Status: Acute (5) Hypophosphatemia Code(s): E83.39 - OTHER DISORDERS OF PHOSPHORUS METABOLISM Status: Acute (6) Ileus, unspecified Code(s): K56.7 - ILEUS, UNSPECIFIED Status: Acute (7) Gastroparesis Code(s): K31.84 - GASTROPARESIS Status: Acute - Plan 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
[2018-06-14] MEDS ORDERED: Potassium Phosphate 20 MMOL in Sodium Chloride 0.9% 250 ML 250 ML IV SCH (14:15)
[2018-06-14] MEDS ORDERED: Metoclopramide HCl 10 MG/2 ML VIAL IVP PRN (14:15)
[2018-06-14] MEDS ORDERED: Metoclopramide HCl 10 MG/2 ML VIAL IVP SCH (14:15)
[2018-06-14 15:34] LABS: Actual Bicarbonate (HCO3a) 12.7 mEq/L (22-28); Base Excess (BEa) -8.6 mEq/L (-2.0 to +3.0); CO2 Tension 19.3 mmHg (35.0-45.0); Calcium, Ionized 1.34 mmol/L (1.12-1.30); Carboxyhemoglobin (COHb) 0.7 gm% (0.0-3.0); Hemoglobin (Hb) 16.1 g/dL (14.0-18.0); O2 Tension (PaO2) 60.2 mmHg (80.0-100.0); Potassium - ABG Lab 3.77 mmol/L (3.70-5.30); pH, Arterial 7.44 (7.35-7.45)
[2018-06-14 17:51] LABS: Anion Gap 10 mmol/L (10-20); BUN (Urea Nitrogen) 27 mg/dL (8.9-20.6); Calc. Creatinine Clearance 220 mL/min (70-130); Calcium 8.7 mg/dL (7.8-10.44); Carbon Dioxide 14 mmol/L (22-29); Chloride 122 mmol/L (98-107); Estimated GFR-MDRD Greater than 90; Glucose 171 mg/dL (70-105); Magnesium 2.6 mg/dL (1.6-2.6); Potassium 3.7 mmol/L (3.5-5.1); Sodium 142 mmol/L (136-145)
[2018-06-14 18:02] LABS: Phosphorus 1.2 mg/dL (2.3-4.7)
[2018-06-14 21:28] LABS: Anion Gap 10 mmol/L (10-20); BUN (Urea Nitrogen) 28 mg/dL (8.9-20.6); Calc. Creatinine Clearance 228 mL/min (70-130); Calcium 8.5 mg/dL (7.8-10.44); Carbon Dioxide 14 mmol/L (22-29); Chloride 121 mmol/L (98-107); Estimated GFR-MDRD Greater than 90; Glucose 209 mg/dL (70-105); Magnesium 2.9 mg/dL (1.6-2.6); Phosphorus 1.7 mg/dL (2.3-4.7); Potassium 3.9 mmol/L (3.5-5.1); Sodium 141 mmol/L (136-145)
[2018-06-15 01:49] LABS: Anion Gap 13 mmol/L (10-20); BUN (Urea Nitrogen) 29 mg/dL (8.9-20.6); Calc. Creatinine Clearance 239 mL/min (70-130); Calcium 8.6 mg/dL (7.8-10.44); Carbon Dioxide 12 mmol/L (22-29); Chloride 120 mmol/L (98-107); Estimated GFR-MDRD Greater than 90; Glucose 205 mg/dL (70-105); Magnesium 2.8 mg/dL (1.6-2.6); Potassium 3.7 mmol/L (3.5-5.1); Sodium 141 mmol/L (136-145)
[2018-06-15 01:50] LABS: Phosphorus 1.7 mg/dL (2.3-4.7)
[2018-06-15] MEDS: Potassium Phosphate 9 MMOL in Sodium Chloride 0.9% 100 ML IVPB PRN ×2 (02:22→15:21)
[2018-06-15 04:28] LABS: Anion Gap 12 mmol/L (10-20); BUN (Urea Nitrogen) 28 mg/dL (8.9-20.6); Band 43 % (5-11); Calc. Creatinine Clearance 239 mL/min (70-130); Calcium 8.6 mg/dL (7.8-10.44); Carbon Dioxide 13 mmol/L (22-29); Chloride 121 mmol/L (98-107); Estimated GFR-MDRD Greater than 90; Glucose 196 mg/dL (70-105); Lymphocytes 18 % (21-51); MDiff Complete? YES; Mean Corpuscular HGB CONC 35.2 g/dL (32.0-36.0); Mean Corpuscular Hemoglobin 32.3 pg (27.0-31.0); Mean Corpuscular Volume 91.7 fL (78.0-98.0); Metamyelocyte 1 % (0-0); Monocytes 10 % (0-10); Neutrophil 28 % (42-75); Platelet Count 334 thou/uL (130-400); Platelet Morphology Comment Appears Adequate; Potassium 3.9 mmol/L (3.5-5.1); Red Blood Cell (RBC) Count 4.65 mill/uL (4.70-6.10); Sodium 142 mmol/L (136-145); White Blood Cell (WBC) Count 24.8 thou/uL (4.8-10.8)
[2018-06-15 04:40] LABS: Phosphorus 2.5 mg/dL (2.3-4.7)
[2018-06-15] MEDS: D5 1/2 NS w/20 mEq KCL 1,000 ML IV PRN (06:18)
[2018-06-15] MEDS: HUMULIN R 100 UNITS in Sodium Chloride 0.9% 100 ML IVPB SCH (07:55)
--- NOTE | 2018-06-15 08:30 | PRG ---
DATE OF SERVICE: 06/15/2018 SUBJECTIVE: The patient is seen and examined at bedside. He is in the CCU C5. He is able to answer my questions properly. He follows my commands. He feels better. He does not have much of any abdominal discomfort anymore. The NG tube is working properly and it is draining darkish fluid. OBJECTIVE: VITAL SIGNS: Blood pressure is 121/71, pulse is 109, respirations 24, O2 saturation 95% on room air. HEENT: Head is atraumatic and normocephalic. Eyes are PERRLA. Sclerae are nonicteric. Oral mucosa is dry. NECK: Supple. No lymphadenopathy. LUNGS: Clear. HEART: S1 and S2. Tachycardic. No S3. No S4. ABDOMEN: Soft. Mildly distended. No bowel sounds. No organomegaly. EXTREMITIES: No clubbing, cyanosis, or edema. NEUROLOGIC: He is alert and oriented x3. There is no any motor or sensory deficit present. Cranial nerves are intact. LABORATORY DATA: White count of 24.8, hemoglobin 15.0, hematocrit 42.6, neutrophils 28, bands 43%. Sodium of 141, potassium 3.7, chloride 120, BUN 29, creatinine 0.79, CO2 of 12, glucose 205, magnesium 2.8, phosphorus 2.5, calcium 8.6. Microbiology; Urine no growth. Blood cultures, no growth in 48 hours. IMPRESSION: 1. Diabetic ketoacidosis. The gap is closed at this point. 2. Metabolic acidosis due to diabetes mellitus. 3. Obesity. 4. Hypokalemia, resolved. 5. Hypophosphatemia, corrected. 6. Ileus, most likely secondary to diabetic ketoacidosis. PLAN: Plan is to obtain General Surgery consultation with Dr. Amato and continue his antibiotic. IV fluids were stopped last night, we will restart them. Continue slow suctioning through the NG tube. Replacing deficient electrolytes p.r.n. We will keep him on insulin drip today. Job ID: [id number]
[2018-06-15] MEDS: Pantoprazole 40 MG VIAL IVP SCH (08:49)
[2018-06-15] MEDS: Famotidine/PF 20 mg/2ml Vial SLOW IVP SCH (08:50)
[2018-06-15] MEDS: Enoxaparin Sodium 40 MG/0.4 ML SYRINGE SC SCH (08:50)
--- NOTE | 2018-06-15 09:27 | PRG ---
DATE OF SERVICE: 06/15/2018 PULMONARY/CRITICAL CARE PROGRESS NOTE SUBJECTIVE: The patient is doing better. He had an NG tube placed yesterday. He has an ileus. OBJECTIVE: VITAL SIGNS: On exam, his temperature is 98.6, pulse 113, blood pressure 111/68, O2 saturation 96%. 24-hour intake 3566, output HEENT: Unremarkable except for the NG tube in place. NECK: No JVD. CHEST: Clear anteriorly. CARDIAC: S1 and S2, regular. ABDOMEN: Distended. Bowel sounds quiet. EXTREMITIES: No edema. LABORATORY DATA: Sodium 142, potassium 3.9, chloride 121, CO2 of 13, BUN 28, creatinine 0.7, glucose 196, started on insulin drip at 5 units/hour. White blood cell count 24.8, hematocrit 42.6, platelet count 334. ASSESSMENT: 1. Diabetic ketoacidosis-his gap is closed, but he continues to have a profound ileus. 2. Corrected severe hypokalemia. 3. Improved hyponatremia. PLAN: 1. Up in a chair as tolerated. 2. Continue to monitor electrolytes closely. 3. Consider converting over to subcutaneous insulin as his ileus improves. Job ID: [id number]
[2018-06-15] MEDS: D5 1/2 NS w/20 mEq KCL 1,000 ML IV SCH ×2 (09:55→16:51)
[2018-06-15 09:58] LABS: Anion Gap 11 mmol/L (10-20); BUN (Urea Nitrogen) 24 mg/dL (8.9-20.6); Calc. Creatinine Clearance 249 mL/min (70-130); Calcium 8.5 mg/dL (7.8-10.44); Carbon Dioxide 15 mmol/L (22-29); Chloride 121 mmol/L (98-107); Estimated GFR-MDRD Greater than 90; Glucose 196 mg/dL (70-105); Magnesium 2.5 mg/dL (1.6-2.6); Phosphorus 2.3 mg/dL (2.3-4.7); Potassium 3.9 mmol/L (3.5-5.1); Sodium 143 mmol/L (136-145)
[2018-06-15 13:47] LABS: Phosphorus 1.8 mg/dL (2.3-4.7)
[2018-06-15 13:48] LABS: Anion Gap 13 mmol/L (10-20); BUN (Urea Nitrogen) 24 mg/dL (8.9-20.6); Calc. Creatinine Clearance 252 mL/min (70-130); Calcium 8.8 mg/dL (7.8-10.44); Carbon Dioxide 13 mmol/L (22-29); Chloride 120 mmol/L (98-107); Estimated GFR-MDRD Greater than 90; Glucose 189 mg/dL (70-105); Magnesium 2.7 mg/dL (1.6-2.6); Potassium 3.8 mmol/L (3.5-5.1); Sodium 142 mmol/L (136-145)
[2018-06-15 17:43] LABS: Anion Gap 12 mmol/L (10-20); BUN (Urea Nitrogen) 23 mg/dL (8.9-20.6); Calc. Creatinine Clearance 245 mL/min (70-130); Calcium 8.7 mg/dL (7.8-10.44); Carbon Dioxide 14 mmol/L (22-29); Chloride 121 mmol/L (98-107); Estimated GFR-MDRD Greater than 90; Glucose 181 mg/dL (70-105); Magnesium 2.5 mg/dL (1.6-2.6); Potassium 3.8 mmol/L (3.5-5.1); Sodium 143 mmol/L (136-145)
[2018-06-15 17:45] LABS: Phosphorus 1.9 mg/dL (2.3-4.7)
--- NOTE | 2018-06-15 17:53 | CT ---
CT ABDOMEN NONCONTRAST CT PELVIS NONCONTRAST: (urolithiasis protocol) DATE: 06/15/18 at 3:10 p.m. HISTORY: 43-year-old male with nausea and vomiting. Ileus versus small bowel obstruction. COMPARISON: Contrast enhanced CT of 01/08/2003. TECHNIQUE: IV injection of iodinated contrast media: none Oral contrast media: none FINDINGS: Other than for urolithiasis, the lack of IV and oral contrast limits the evaluation. New finding of patchy, irregular shaped alveolar infiltrates in the lower lobes of the bilateral lung s, very suspicious for pneumonia. An NG tube has been placed into the distal stomach. There is diffus matt low hepatic attenuation consistent with fatty liver. The bilateral kidneys appear to be mildly en larged. There is no hydronephrosis. No renal calculus. On the coronal reconstructions, the craniocaud al dimension of the left kidney is 16.5 cm, and that of the right kidney is approximately 15.5 cm. No hydronephrosis. Morfin catheter within decompressed urinary bladder. High density material probably r epresenting retained oral contrast material throughout the nondilated ascending colon, transverse col on, and to a lesser degree in the descending colon and rectosigmoid colon. Normal retrocecal appendix . Multiple dilated small bowel loops with air fluid levels. The terminal ileum is not dilated. The tra nsition point of small bowel caliber is difficult to identify, but may be in the right lower quadrant , where there is fat stranding. There is a dilated loop of bowel with air fluid level in the ventral aspect of the right lower quadrant peritoneal cavity which resembles a loop of colon, but it does not appear to connect to the rest of the collapsed colon, and therefore appears to be a dilated noncolon ic loop of bowel, perhaps a surgical pouch. No pneumoperitoneum identified. IMPRESSION: 1. Diffusely dilated small bowel loops is evidence for small bowel obstruction. 2. The point of obstruction is probably in the right lower quadrant of the peritoneal cavity. 3. Hepatic steatosis. 4. Bilateral mild nephromegaly. 5. No hydronephrosis. 6. Nasogastric tube in the distal stomach. 7. Evidence for bilateral lower lobe pneumonia. KAREN White POS: [facility]
--- NOTE | 2018-06-15 18:11 | CON ---
DATE OF CONSULTATION: REASON FOR CONSULTATION: Possible ileus versus small-bowel obstruction. HISTORY OF PRESENT ILLNESS: Mr. Oakley is a 43-year-old man, who presented to the emergency room with a 1-day history of nausea and vomiting. He was found to be in DKA and was admitted for this. The nausea got transiently better, but then yesterday it recurred and was quite severe and so an NG tube was placed. He was noted to have dilated loops of small bowel with air-fluid levels on plain film of the abdomen. I am concerning for ileus or small bowel obstruction. Since having the NG tube placed, now the patient's abdominal pain and nausea have resolved. He is unsure whether he has passed any gas and he has not had a bowel movement since coming to the hospital. He does not have any abdominal surgical history; although, he has had diverticulitis in the past. Denies any pain or bulging in his groin. He denies any change in his bowel habits prior to his admission. PAST MEDICAL HISTORY: Recently diagnosed diabetes. PAST SURGICAL HISTORY: Tonsillectomy. ALLERGIES: HE REPORTS AN ADVERSE DRUG REACTION TO PENICILLIN, WHICH CAUSES NAUSEA. SOCIAL HISTORY: The patient formerly smoked, but no longer does. He drinks occasionally but not to excess and does not use any illicit drugs. He is single. FAMILY HISTORY: Noncontributory. MEDICATIONS: He has no outpatient medications. PHYSICAL EXAMINATION: GENERAL: Reveals a morbidly obese man, in no acute distress with an NG tube in place with bilious output. HEENT: Unremarkable. NECK: Supple without lymphadenopathy or thyroid nodules. HEART: Regular in its rate and rhythm. Breath sounds are distant with occasional crackles more on the right than on the left. ABDOMEN: Soft, nontender, and nondistended without palpable hernias. No bulge with cough or Valsalva at the internal ring or in the femoral canals. Bowel sounds are present, but hypoactive again. Auscultation is difficult because of body habitus. EXTREMITIES: Warm and well perfused with minimal ankle edema. NEUROLOGIC: No focal deficits. PSYCHIATRIC: Alert, oriented, and appropriate. LABORATORY DATA: White count is elevated at 24 with a bandemia of 43, chloride is high at 120, bicarb is 13, which is actually up from less than 8 at admission. Blood sugars have ranged from 150 to 242. Phosphorus was 1.8, magnesium 2.7, and potassium 3.8, which is up from 1.2 at admission. Abdominal films are reviewed and I agree with the written report. ASSESSMENT AND PLAN: Small-bowel obstruction versus ileus. The patient has significant medical illness, which could explain both his leukocytosis and an ileus, but small-bowel obstruction cannot be excluded. I have ordered a noncontrast CT to further evaluate this. He could have adhesions from his previous diverticulitis. In either case, he is minimally symptomatic with the NG tube in place and I would recommend a trial of nonoperative management. I will continue to follow along with the Medicine Team. Job ID: [id number]
[2018-06-15 21:40] LABS: Anion Gap 11 mmol/L (10-20); BUN (Urea Nitrogen) 22 mg/dL (8.9-20.6); Calc. Creatinine Clearance 259 mL/min (70-130); Calcium 8.6 mg/dL (7.8-10.44); Carbon Dioxide 16 mmol/L (22-29); Chloride 120 mmol/L (98-107); Estimated GFR-MDRD Greater than 90; Glucose 178 mg/dL (70-105); Magnesium 2.3 mg/dL (1.6-2.6); Potassium 3.8 mmol/L (3.5-5.1); Sodium 143 mmol/L (136-145)
[2018-06-15 21:51] LABS: Phosphorus 2.5 mg/dL (2.3-4.7)
--- NOTE | 2018-06-16 00:05 | EKG ---
Test Reason : Blood Pressure : / mmHG Vent. Rate : 094 BPM Atrial Rate : 094 BPM P-R Int : 108 ms QRS Dur : 104 ms QT Int : 514 ms P-R-T Axes : 066 010 108 degrees QTc Int : 642 ms Sinus rhythm with short TN Marked ST abnormality, possible inferolateral subendocardial injury Prolonged QT Abnormal ECG Confirmed by KIA JAMES, TROY ([id number]), makeup editor JULIA JIANG ([id number]) on 06/16/2018 12:04:20 AM Referred By: Confirmed By:TROY ADAM MD
[2018-06-16 01:21] LABS: Phosphorus 2.7 mg/dL (2.3-4.7)
[2018-06-16 01:22] LABS: Anion Gap 14 mmol/L (10-20); BUN (Urea Nitrogen) 22 mg/dL (8.9-20.6); Calc. Creatinine Clearance 278 mL/min (70-130); Calcium 8.4 mg/dL (7.8-10.44); Carbon Dioxide 15 mmol/L (22-29); Chloride 119 mmol/L (98-107); Estimated GFR-MDRD Greater than 90; Glucose 186 mg/dL (70-105); Magnesium 2.3 mg/dL (1.6-2.6); Sodium 144 mmol/L (136-145)
[2018-06-16] MEDS: D5 1/2 NS w/20 mEq KCL 1,000 ML IV SCH (03:14)
[2018-06-16 04:53] LABS: Anion Gap 14 mmol/L (10-20); BUN (Urea Nitrogen) 22 mg/dL (8.9-20.6); Calc. Creatinine Clearance 278 mL/min (70-130); Calcium 8.4 mg/dL (7.8-10.44); Carbon Dioxide 15 mmol/L (22-29); Chloride 118 mmol/L (98-107); Estimated GFR-MDRD Greater than 90; Glucose 185 mg/dL (70-105); Sodium 143 mmol/L (136-145)
[2018-06-16 05:18] LABS: Band 27 % (5-11); Basophilic Stippling SLIGHT = 1-2 cells (100X) (None Seen); Eosinophils 1 % (0-10); Hemoglobin 14.2 g/dL (14.0-18.0); Lymphocytes 13 % (21-51); MDiff Complete? YES; Mean Corpuscular HGB CONC 34.2 g/dL (32.0-36.0); Mean Corpuscular Volume 93.6 fL (78.0-98.0); Mean Platelet Volume 7.8 fL (7.4-10.4); Metamyelocyte 1 % (0-0); Monocytes 12 % (0-10); Myelocyte 2 % (0-0); Neutrophil 44 % (42-75); Nucleated RBC 1 % (0); Platelet Count 301 thou/uL (130-400); Platelet Morphology Comment Appears Adequate; RBC Distribution Width 13.1 % (11.5-14.5); RBC Morphology Normal; Red Blood Cell (RBC) Count 4.44 mill/uL (4.70-6.10); White Blood Cell (WBC) Count 26.5 thou/uL (4.8-10.8)
[2018-06-16] MEDS: Pantoprazole 40 MG VIAL IVP SCH (08:52)
[2018-06-16] MEDS: Enoxaparin Sodium 40 MG/0.4 ML SYRINGE SC SCH (08:52)
[2018-06-16 08:53] LABS: Phosphorus 2.7 mg/dL (2.3-4.7)
[2018-06-16 08:56] LABS: Anion Gap 9 mmol/L (10-20); BUN (Urea Nitrogen) 22 mg/dL (8.9-20.6); Calc. Creatinine Clearance 266 mL/min (70-130); Calcium 8.5 mg/dL (7.8-10.44); Carbon Dioxide 18 mmol/L (22-29); Chloride 119 mmol/L (98-107); Estimated GFR-MDRD Greater than 90; Glucose 196 mg/dL (70-105); Magnesium 2.4 mg/dL (1.6-2.6); Sodium 142 mmol/L (136-145)
[2018-06-16] MEDS ORDERED: Dextrose 50% Abboject 50 ML SYRINGE SLOW IVP PRN (09:54)
[2018-06-16] MEDS ORDERED: HumaLOG 300 UNITS/3 ML VIAL SC PRN (09:54)
[2018-06-16] MEDS ORDERED: Dextrose 5% in Water 1,000 ML IV PRN (09:54)
[2018-06-16] MEDS: Sodium Chloride 0.45% 1,000 ML IV SCH (10:30)
--- NOTE | 2018-06-16 10:36 | PRG ---
DATE OF SERVICE: 06/16/2018 SUBJECTIVE: He is doing better. OBJECTIVE: VITAL SIGNS: Temperature is 98.3, pulse 103, blood pressure 134/77. Total intake 2466 and output 2975. HEENT: Unremarkable. NECK: No JVD. CHEST: Clear anteriorly. CARDIAC: S1 and S2. Regular. ABDOMEN: Soft. EXTREMITIES: No edema. LABORATORY DATA: Sodium 142, potassium 4, chloride 119, CO2 of 18, BUN 22, creatinine 0.7, and glucose 196. White blood cell count 26.5, hematocrit 41.5, and platelet count 301. ASSESSMENT: 1. Diabetic ketoacidosis. 2. Corrected severe hypokalemia. 3. Ileus. PLAN: 1. Trial of clear liquids. If he can tolerate that, then consider discontinue the NG-tube. 2. Convert over to NPH insulin and sliding scale insulin and discontinue the insulin drip. 3. Continue antibiotic therapy as his x-ray does show some pneumonitis. Job ID: [id number]
--- NOTE | 2018-06-16 11:44 | PRG ---
DATE OF SERVICE: 06/16/2018 SUBJECTIVE: The patient is seen and examined at bedside. He remains in C5 ICU. He does not have much pain. He is asking me for some food. OBJECTIVE: GENERAL: There were no any unexpected events overnight. VITAL SIGNS: Blood pressure is 134/92, pulse is 100, respiratory rate is 18, O2 saturation is 99% on room air. HEENT: His head is atraumatic and normocephalic. Eyes are PERRLA. Sclerae are nonicteric. He has an NG tube in the right nostril. Oral mucosa is dry. LUNGS: Breath sounds diminished at both bases. HEART: S1, S2 normal. Somewhat tachycardic. No S3. No S4. ABDOMEN: Mildly distended, somewhat obese. Bowel sounds are present. EXTREMITIES: No clubbing, cyanosis, or edema. NEUROLOGIC: He is alert and oriented x4. There are no any motor or sensory deficits present. Cranial nerves are intact. LABORATORY DATA: Showed a white count of 26.5, hemoglobin 14.2, hematocrit 41.5, platelet count 301,000, and 27 bands. Sodium of 143, potassium 4.0, chloride 118, CO2 of 15, BUN 22, creatinine 0.68, glycemia is ranging from to 171 to 179. The rest of chemistry within normal limits. Microbiology: Urine, no growth. Blood cultures, no growth x48 hours. DIAGNOSTIC STUDIES: CT of the abdomen and pelvis showed diffusely dilated small bowel loops in evidence for: 1. Small bowel obstruction. 2. Hepatic steatosis. 3. Bilateral mild nephromegaly. 4. Bilateral lower lobe pneumonia. IMPRESSION: 1. Diabetic ketoacidosis, improved. 2. Small bowel obstruction. 3. Metabolic acidosis. 4. Hypokalemia, resolved. 5. Hypophosphatemia, corrected. 6. Bilateral pneumonia. PLAN: Plan is to continue NG tube suctioning. Continue levofloxacin 750 mg IV piggyback every 24 hours. Switch to insulin NPH 25 units twice a day plus sliding scale insulin drip is going to be stopped in 2 hours after administration of insulin NPH and we will keep checking his sugar every 4 hours. He will continue on IV fluids and nasogastric tube suctioning. Job ID: [id number]
[2018-06-16] MEDS: NPH, Human Insulin Isophane 300 UNIT/3 ML VIAL SC SCH ×2 (12:43→21:12)
--- NOTE | 2018-06-16 13:35 | PDOC.GSPN ---
Surgery Progress Note: Subj - Subjective Narrative: Patient feels good today. He denies any abdominal pain or nausea. He doesn't think he has passed any gas however. NG output yesterday was still quite high at over a liter, although less than the day before when he had 3 L out. Abdomen is soft nontender and nondistended. Bowel sounds are diminished. White count is still elevated and he had findings in both bases of his lungs worrisome for pneumonia. Assessment/plan: Small bowel obstruction. Etiology is unclear but the ejection appears to be persistent. He is minimally symptomatic and had been obstructed for several days before it was recognized, so I'm going to give him another 24 hours of decompression and bowel rest. He is at high risk for needing surgery but there is no urgent indication for this. Management of pulmonary issues per pulmonology Surgery Progress Note: Obj - Vital signs Vital signs: Vital Signs - Most Recent Temp Pulse Resp BP Pulse Ox 98.3 F 83 31 H 97 06/16/18 00:00 06/13/18 17:46 06/13/18 03:20 06/16/18 07:40 Surgery Progress Note: Results - Labs Result Diagrams: 06/16/18 04:30 06/16/18 08:16 Lab results: Laboratory Results - last 24 hr 06/16/18 06/16/18 06/16/18 02:17 03:03 04:06 WBC RBC Hgb Hct MCV MCH MCHC RDW Plt Count MPV Neutrophils % (Manual) Band Neuts % (Manual) Lymphocytes % (Manual) Monocytes % (Manual) Eosinophils % (Manual) Metamyelocytes % (Man) Myelocytes % Nucleated RBCs # (Man) Plt Morphology Comment Basophilic Stippling RBC Morph Comment Sodium Potassium Chloride Carbon Dioxide Anion Gap BUN Creatinine Estimated GFR (MDRD) Glucose POC Glucose 170 H 172 H 160 H Calcium Phosphorus Magnesium 06/16/18 06/16/18 06/16/18 04:30 04:30 05:01 WBC 26.5 H RBC 4.44 L Hgb 14.2 Hct 41.5 L MCV 93.6 MCH 32.0 H MCHC 34.2 RDW 13.1 Plt Count 301 MPV 7.8 Neutrophils % (Manual) 44 Band Neuts % (Manual) 27 H Lymphocytes % (Manual) 13 L Monocytes % (Manual) 12 H Eosinophils % (Manual) 1 Metamyelocytes % (Man) 1 H Myelocytes % 2 H Nucleated RBCs # (Man) 1 H Plt Morphology Comment Appears Adequate Basophilic Stippling SLIGHT = 1-2 cells RBC Morph Comment Normal Sodium 143 Potassium 4.0 Chloride 118 H Carbon Dioxide 15 L Anion Gap 14 BUN 22 H Creatinine 0.68 L Estimated GFR (MDRD) Greater than 90 Glucose 185 H POC Glucose 174 H Calcium 8.4 Phosphorus Magnesium 06/16/18 06/16/18 06/16/18 06:08 07:17 08:06 WBC RBC Hgb Hct MCV MCH MCHC RDW Plt Count MPV Neutrophils % (Manual) Band Neuts % (Manual) Lymphocytes % (Manual) Monocytes % (Manual) Eosinophils % (Manual) Metamyelocytes % (Man) Myelocytes % Nucleated RBCs # (Man) Plt Morphology Comment Basophilic Stippling RBC Morph Comment Sodium Potassium Chloride Carbon Dioxide Anion Gap BUN Creatinine Estimated GFR (MDRD) Glucose POC Glucose 175 H 171 H 173 H Calcium Phosphorus Magnesium 06/16/18 06/16/18 06/16/18 08:16 08:16 09:02 WBC RBC Hgb Hct MCV MCH MCHC RDW Plt Count MPV Neutrophils % (Manual) Band Neuts % (Manual) Lymphocytes % (Manual) Monocytes % (Manual) Eosinophils % (Manual) Metamyelocytes % (Man) Myelocytes % Nucleated RBCs # (Man) Plt Morphology Comment Basophilic Stippling RBC Morph Comment Sodium 142 Potassium 4.0 Chloride 119 H Carbon Dioxide 18 L Anion Gap 9 L BUN 22 H Creatinine 0.71 Estimated GFR (MDRD) Greater than 90 Glucose 196 H POC Glucose 176 H Calcium 8.5 Phosphorus 2.7 Magnesium 2.4 06/16/18 10:05 WBC RBC Hgb Hct MCV MCH MCHC RDW Plt Count MPV Neutrophils % (Manual) Band Neuts % (Manual) Lymphocytes % (Manual) Monocytes % (Manual) Eosinophils % (Manual) Metamyelocytes % (Man) Myelocytes % Nucleated RBCs # (Man) Plt Morphology Comment Basophilic Stippling RBC Morph Comment Sodium Potassium Chloride Carbon Dioxide Anion Gap BUN Creatinine Estimated GFR (MDRD) Glucose POC Glucose 179 H Calcium Phosphorus Magnesium
[2018-06-16 14:39] LABS: Anion Gap 11 mmol/L (10-20); BUN (Urea Nitrogen) 21 mg/dL (8.9-20.6); Calc. Creatinine Clearance 270 mL/min (70-130); Calcium 8.6 mg/dL (7.8-10.44); Carbon Dioxide 17 mmol/L (22-29); Chloride 117 mmol/L (98-107); Estimated GFR-MDRD Greater than 90; Glucose 165 mg/dL (70-105); Magnesium 2.4 mg/dL (1.6-2.6); Potassium 3.9 mmol/L (3.5-5.1); Sodium 141 mmol/L (136-145)
[2018-06-16 14:47] LABS: Phosphorus 2.2 mg/dL (2.3-4.7)
--- NOTE | 2018-06-16 14:57 | RAD ---
RADIOGRAPH ABDOMEN 2 VIEWS: DATE: 06/16/2018. TIME: 2:27 p.m. HISTORY: A 43-year-old male with small bowel obstruction. FINDINGS: There is an NG tube with distal tip in the medial aspect left upper quadrant, probably in the proxima l aspect of a decompressed stomach. There are multiple dilated small bowel loops with differential a ir fluid levels. No evidence of pneumoperitoneum. There is a distended air-filled loop of bowel in the right lower quadrant which was demonstrated on the recent CT not to represent the cecum. IMPRESSION: 1. Nasogastric tube in the proximal stomach. 2. Abnormal bowel gas pattern is evidence for small bowel obstruction. POS: ANUEL
[2018-06-16] MEDS: HumaLOG 300 UNITS/3 ML VIAL SC PRN (16:28)
[2018-06-16 18:07] LABS: Phosphorus 2.5 mg/dL (2.3-4.7)
[2018-06-16 18:09] LABS: Anion Gap 14 mmol/L (10-20); BUN (Urea Nitrogen) 21 mg/dL (8.9-20.6); Calc. Creatinine Clearance 259 mL/min (70-130); Calcium 8.3 mg/dL (7.8-10.44); Carbon Dioxide 15 mmol/L (22-29); Chloride 117 mmol/L (98-107); Estimated GFR-MDRD Greater than 90; Glucose 168 mg/dL (70-105); Magnesium 2.2 mg/dL (1.6-2.6); Potassium 3.9 mmol/L (3.5-5.1); Sodium 142 mmol/L (136-145)
[2018-06-16 21:21] LABS: Phosphorus 2.5 mg/dL (2.3-4.7)
[2018-06-16 21:23] LABS: Anion Gap 12 mmol/L (10-20); BUN (Urea Nitrogen) 21 mg/dL (8.9-20.6); Calc. Creatinine Clearance 266 mL/min (70-130); Calcium 8.2 mg/dL (7.8-10.44); Carbon Dioxide 17 mmol/L (22-29); Chloride 118 mmol/L (98-107); Estimated GFR-MDRD Greater than 90; Glucose 166 mg/dL (70-105); Magnesium 2.3 mg/dL (1.6-2.6); Potassium 3.8 mmol/L (3.5-5.1); Sodium 143 mmol/L (136-145)
[2018-06-17] MEDS: Sodium Chloride 0.45% 1,000 ML IV SCH ×2 (00:38→12:08)
[2018-06-17 02:15] LABS: Phosphorus 2.8 mg/dL (2.3-4.7)
[2018-06-17 02:17] LABS: Anion Gap 14 mmol/L (10-20); BUN (Urea Nitrogen) 20 mg/dL (8.9-20.6); Calc. Creatinine Clearance 266 mL/min (70-130); Calcium 8.2 mg/dL (7.8-10.44); Carbon Dioxide 15 mmol/L (22-29); Chloride 118 mmol/L (98-107); Estimated GFR-MDRD Greater than 90; Glucose 150 mg/dL (70-105); Magnesium 2.4 mg/dL (1.6-2.6); Sodium 143 mmol/L (136-145)
[2018-06-17 05:15] LABS: Anion Gap 11 mmol/L (10-20); BUN (Urea Nitrogen) 21 mg/dL (8.9-20.6); Calc. Creatinine Clearance 262 mL/min (70-130); Calcium 8.4 mg/dL (7.8-10.44); Carbon Dioxide 18 mmol/L (22-29); Chloride 117 mmol/L (98-107); Estimated GFR-MDRD Greater than 90; Glucose 164 mg/dL (70-105); Magnesium 2.4 mg/dL (1.6-2.6); Phosphorus 2.6 mg/dL (2.3-4.7); Sodium 142 mmol/L (136-145)
[2018-06-17 05:20] LABS: Band 31 % (5-11); Hemoglobin 14.1 g/dL (14.0-18.0); Lymphocytes 13 % (21-51); MDiff Complete? YES; Mean Corpuscular HGB CONC 33.6 g/dL (32.0-36.0); Mean Corpuscular Hemoglobin 31.8 pg (27.0-31.0); Mean Corpuscular Volume 94.7 fL (78.0-98.0); Mean Platelet Volume 7.7 fL (7.4-10.4); Metamyelocyte 3 % (0-0); Monocytes 9 % (0-10); Myelocyte 1 % (0-0); Neutrophil 43 % (42-75); Platelet Count 309 thou/uL (130-400); Platelet Morphology Comment Appears Adequate; RBC Distribution Width 13.3 % (11.5-14.5); Red Blood Cell (RBC) Count 4.45 mill/uL (4.70-6.10); White Blood Cell (WBC) Count 23.4 thou/uL (4.8-10.8)
[2018-06-17] MEDS: Pantoprazole 40 MG VIAL IVP SCH (08:39)
[2018-06-17] MEDS: NPH, Human Insulin Isophane 300 UNIT/3 ML VIAL SC SCH ×2 (08:39→20:34)
--- NOTE | 2018-06-17 09:19 | PRG ---
DATE OF SERVICE: 06/17/2018 SUBJECTIVE: The patient is doing fairly well. He is thought to have a high-grade bowel obstruction. He is probably going for laparotomy later today. OBJECTIVE: VITAL SIGNS: Temperature 98.8, pulse 103, and blood pressure 144/88. A 24-hour intake 1957 and output 2741. HEENT: Unremarkable. NECK: No JVD. LUNGS: Clear. CARDIAC: S1 and S2. Regular. ABDOMEN: Distended. Bowel sounds hypoactive. EXTREMITIES: No edema. LABORATORY DATA: White blood cell count 23.4, hematocrit 42.1, and platelet count 309. Sodium 140, potassium 4.0, chloride 117, CO2 of 18, BUN 21, creatinine 0.7, and glucose 164. ASSESSMENT: 1. Status post diabetic ketoacidosis. 2. Status post profound hypokalemia. 3. High-grade bowel obstruction. PLAN: 1. Continue present care with IV fluids, sliding scale insulin, and NPH insulin. 2. Continue electrolyte replacement as needed. 3. Follow post laparotomy. Job ID: [id number]
[2018-06-17 09:44] LABS: Anion Gap 14 mmol/L (10-20); BUN (Urea Nitrogen) 20 mg/dL (8.9-20.6); Calc. Creatinine Clearance 278 mL/min (70-130); Calcium 8.1 mg/dL (7.8-10.44); Carbon Dioxide 14 mmol/L (22-29); Chloride 117 mmol/L (98-107); Estimated GFR-MDRD Greater than 90; Glucose 187 mg/dL (70-105); Magnesium 2.4 mg/dL (1.6-2.6); Potassium 4.3 mmol/L (3.5-5.1); Sodium 141 mmol/L (136-145)
[2018-06-17 10:12] LABS: Phosphorus 3.3 mg/dL (2.3-4.7)
[2018-06-17] MEDS: Enoxaparin Sodium 40 MG/0.4 ML SYRINGE SC SCH (10:47)
--- NOTE | 2018-06-17 11:42 | PRG ---
DATE OF SERVICE: 06/17/2018 SUBJECTIVE: The patient is seen and examined at bedside. He is in ICU-C5. He is getting ready for surgery for his bowel obstruction. Abdominal discomfort is just fullness. Otherwise, he feels better. OBJECTIVE: VITAL SIGNS: Blood pressure is 142/89, pulse 98, respiratory rate 16, and O2 saturation is 97. HEENT: He has NG tube in his nose, draining some darkish fluid. His head is atraumatic and normocephalic. Eyes are PERRLA. Sclerae are nonicteric. Oral mucosa is somewhat dry. NECK: Supple. LUNGS: Clear. HEART: S1 and S2, normal. No S3. No S4. ABDOMEN: Mildly distended. Bowel sounds sporadic. Tympanic sound metallic. EXTREMITIES: No clubbing, cyanosis, or edema. NEUROLOGIC: He follows my commands. There is no any motor or sensory deficit. Cranial nerves are intact. LABORATORY DATA: Labs showed a white count of 23.4, hemoglobin of 14.1, hematocrit 42.1, and platelet count is 309. Sodium is 142, potassium 4.0, chloride 117, CO2 is 18, BUN 21, creatinine 0.72, glucose 143. The rest of chemistry within normal limits. IMPRESSION: 1. Diabetic ketoacidosis, resolved. 2. Small bowel obstruction. 3. Hypokalemia and hypophosphatemia, corrected. 4. Bilateral pneumonia. 5. New onset diabetes mellitus. The patient was switched from insulin to an insulin NPH 25 units twice a day plus sliding scale. For now, he will get IV fluids, NG tube suctioning, and General Surgery Service is planning to do a laparotomy today. Job ID: [id number]
--- NOTE | 2018-06-17 11:44 | RAD ---
ABDOMEN 2 VIEWS: COMPARISON: 06/16/2018. HISTORY: Small bowel obstruction. FINDINGS: Two views abdomen demonstrate persistent distended loops of small bowel. There is still some fecal m aterial and air noted in the right and left hemicolon. The nasogastric tube appears to terminate in the left upper quadrant. The distal tip appears to have been pulled back when compared to the previo us examination suggesting possible location of the distal tip I the gastric cardia or GE junction. A dvancement is recommended. IMPRESSION: 1. Persistently dilated loops of small bowel. There is evidence for a small bowel obstruction. 2. Interval change in position of the nasogastric tube which now appears to be in the gastroesophage al junction or possibly gastric cardia. Advancement/repositioning is recommended. CODE T POS: [facility]
[2018-06-17] MEDS ORDERED: Bupivacaine HCl 0.25%/Epi 0.0005/PF 10 ML VIAL FS ONE (13:16)
[2018-06-17] MEDS ORDERED: Fentanyl 250 MCG/5 ML VIAL ONE (13:31)
[2018-06-17] MEDS ORDERED: Fentanyl 100 MCG/2 ML VIAL ONE ×2 (13:31→19:19)
[2018-06-17] MEDS ORDERED: Famotidine/PF 20 mg/2ml Vial ONE (13:32)
[2018-06-17] MEDS ORDERED: Rocuronium Bromide 50 MG/5 ML VIAL ONE (13:32)
[2018-06-17] MEDS ORDERED: Albumin 5% 500 ML ONE (13:32)
[2018-06-17] MEDS ORDERED: Lidocaine 1% PF 5 ML VIAL ONE (14:07)
[2018-06-17] MEDS ORDERED: Rocuronium Bromide 10 MG/ML (10ML VIAL) ONE (14:07)
[2018-06-17] MEDS ORDERED: Esmolol 100 MG/10 ML VIAL ONE (14:07)
[2018-06-17] MEDS ORDERED: Ondansetron PF 4 MG/2 ML Vial ONE (14:07)
[2018-06-17] MEDS ORDERED: PROPOFOL 200 MG/20 ML VIAL ONE (14:07)
[2018-06-17] MEDS ORDERED: Glycopyrrolate 0.2 MG/ML 5 ML SYRINGE ONE (14:07)
[2018-06-17] MEDS ORDERED: Succinylcholine Chloride 20 MG/ML 10 ml SYRINGE FS ONE (14:07)
[2018-06-17] MEDS ORDERED: Levofloxacin 500 mg/D5W 100 ml Premix Bag ONE (14:29)
[2018-06-17] MEDS ORDERED: SUGAMMADEX SODIUM 200 MG/2 ML VIAL ONE (18:33)
[2018-06-17] MEDS ORDERED: diphenhydrAMINE 25 MG CAP PO PRN ×2 (19:24→21:38)
[2018-06-17] MEDS ORDERED: diphenhydrAMINE 50 MG/ML VIAL IM/IV PRN (19:24)
[2018-06-17] MEDS ORDERED: Morphine CADD 1 MG/ML CADD IV PRN (19:24)
[2018-06-17] MEDS ORDERED: Naloxone HCl 0.4 mg/ml Vial IV PRN ×2 (19:24→21:38)
[2018-06-17] MEDS ORDERED: Ondansetron PF 4 MG/2 ML Vial IVP PRN ×2 (19:24→21:38)
[2018-06-17] MEDS ORDERED: Zolpidem Tartrate 5 MG TAB PO PRN ×2 (19:24→21:38)
[2018-06-17] MEDS ORDERED: Promethazine HCl 25 MG/ML VIAL IM PRN ×2 (19:24→21:38)
[2018-06-17] MEDS ORDERED: Promethazine HCl 25 MG/ML VIAL IM/IV PRN (19:53)
[2018-06-17] MEDS ORDERED: Ondansetron HCl/PF 4 MG/2 ML Vial IVP PRN (19:53)
[2018-06-17] MEDS: HumaLOG 300 UNITS/3 ML VIAL SC PRN (20:36)
[2018-06-17] MEDS ORDERED: diphenhydrAMINE 50 MG/ML VIAL IVP PRN (21:38)
[2018-06-17] MEDS ORDERED: diphenhydrAMINE 50 MG/ML VIAL IM PRN (21:38)
[2018-06-17] MEDS ORDERED: Communication Order-Pharmacy FS SCH (21:45)
[2018-06-17] MEDS: MEROPENEM 1 GM/50 ML 1 GM in Premix Bag 1 BAG IVPB SCH (22:19)
[2018-06-18 04:00] LABS: #Eosinphils 0.1 thou/uL (0.0-0.7); #Lymphocytes 2.3 thou/uL (1.20-3.40); #Monocytes 2.4 thou/uL (0.11-0.59); #Neutrophils 14.6 thou/uL (1.40-6.50); %Basophils 0.2 % (0.0-1.0); %Eosinophils 0.5 % (0.0-10.0); %Lymphocytes 11.7 % (21.0-51.0); %Monocytes 12.4 % (0.0-10.0); %Neutrophils 75.2 % (42.0-75.0); Hemoglobin 14.9 g/dL (14.0-18.0); Mean Corpuscular HGB CONC 32.6 g/dL (32.0-36.0); Mean Corpuscular Hemoglobin 31.6 pg (27.0-31.0); Mean Platelet Volume 7.8 fL (7.4-10.4); Platelet Count 311 thou/uL (130-400); RBC Distribution Width 13.3 % (11.5-14.5); White Blood Cell (WBC) Count 19.4 thou/uL (4.8-10.8)
[2018-06-18 04:21] LABS: Anion Gap 14 mmol/L (10-20); BUN (Urea Nitrogen) 22 mg/dL (8.9-20.6); Calc. Creatinine Clearance 242 mL/min (70-130); Calcium 7.5 mg/dL (7.8-10.44); Carbon Dioxide 17 mmol/L (22-29); Chloride 117 mmol/L (98-107); Estimated GFR-MDRD Greater than 90; Glucose 180 mg/dL (70-105); Potassium 4.7 mmol/L (3.5-5.1); Sodium 143 mmol/L (136-145)
[2018-06-18] MEDS: Sodium Chloride 0.45% 1,000 ML IV SCH ×4 (04:27→23:10)
[2018-06-18] MEDS: MEROPENEM 1 GM/50 ML 1 GM in Premix Bag 1 BAG IVPB SCH ×3 (05:12→20:54)
[2018-06-18] MEDS: HumaLOG 300 UNITS/3 ML VIAL SC PRN ×3 (06:28→11:28)
--- NOTE | 2018-06-18 07:55 | PRG ---
DATE OF SERVICE: 06/18/2018 PULMONARY/CRITICAL CARE PROGRESS NOTE SUBJECTIVE: Mr. Oakley underwent exploratory laparotomy last night. He now has a colostomy and several drains in place. He says overall he feels better. OBJECTIVE: VITAL SIGNS: His temperature is 98.9, pulse 112, blood pressure 115/89, and O2 sat 92% on room air. Intake for 24 hours 1267, output 2080. HEENT: Unremarkable. NECK: No JVD. LUNGS: Clear anteriorly. CARDIAC: S1 and S2. Slightly tachycardic. ABDOMEN: Soft. Bowel sounds positive. Colostomy site noted. Wound dressing noted. EXTREMITIES: No edema. LABORATORY DATA: White blood cell count 19.4, hematocrit 45.6, and platelet count 311. Sodium 143, potassium 4.7, chloride 117, CO2 of 17, anion gap 10, BUN 22, creatinine 0.7, glucose 180, and calcium 7.5. ASSESSMENT: 1. Status post laparotomy for high-grade bowel obstruction. 2. Diabetic ketoacidosis, resolved. 3. Hypokalemia, resolved. PLAN: He can be transferred out to the surgical floor if okay with Dr. Amato, feed when okay with Dr. Amato. I will go ahead and stop the Levaquin since the patient is now on meropenem. Job ID: [id number]
[2018-06-18] MEDS: NPH, Human Insulin Isophane 300 UNIT/3 ML VIAL SC SCH ×2 (08:03→20:53)
[2018-06-18] MEDS: Enoxaparin Sodium 40 MG/0.4 ML SYRINGE SC SCH (08:05)
[2018-06-18] MEDS: Pantoprazole 40 MG VIAL IVP SCH (08:08)
--- NOTE | 2018-06-18 09:03 | PDOC.PN ---
- Subjective Encounter Start Date: 06/18/18 Encounter Start Time: 09:01 Mr. Oakley was seen today in follow-up of DKA, and small bowel obstruction. He says he feels about as well as can be expected. He denies abdominal pain, he denies any trouble breathing. - Objective MAR Reviewed: Yes Vital Signs & Weight: Vital Signs (12 hours) Temp Pulse Resp BP Pulse Ox 06/18/18 07:52 98.9 F 06/18/18 07:23 92 L 06/18/18 07:00 98.9 F 06/18/18 06:58 93 L 06/18/18 04:00 98.7 F 06/18/18 00:00 98.6 F 06/17/18 21:39 98.4 F 107 H 22 H 120/82 93 L Weight Weight 306 lb 0.026 oz Most Recent Monitor Data Heart Rate from ECG 114 NIBP 123/82 NIBP BP-Mean 95 Respiration from ECG 17 SpO2 99 I&O: 06/17/18 06/18/18 06/19/18 06:59 06:59 06:59 Intake Total 7 1267 Output Total 2741 2080 115 [facility] -[phone] Result Diagrams: 06/18/18 03:56 06/18/18 03:56 Additional Labs: Accuchecks 06/18/18 06/18/18 06/18/18 07:57 03:58 00:04 POC Glucose 153 H 168 H 160 H 06/17/18 06/17/18 20:34 11:52 POC Glucose 174 H 148 H Phys Exam - Physical Examination HEENT: PERRLA Respiratory: no wheezing, no rales, no rhonchi, clear to auscultation bilateral Cardiovascular: RRR, no significant murmur, no rub Gastrointestinal: soft, non-tender, no distention, positive bowel sounds Musculoskeletal: pulses present, edema present trace pedal edema Neurological: non-focal, normal sensation Dx/Plan (1) Small bowel obstruction Code(s): K56.609 - UNSP INTESTNL OBST, UNSP TO PARTIAL VERSUS COMPLETE OBST Status: Acute (2) Diabetes mellitus type 2 in obese Code(s): E11.69 - TYPE 2 DIABETES MELLITUS WITH OTHER SPECIFIED COMPLICATION; E66.9 - OBESITY, UNSPECIFIED Status: Acute (3) DKA, type 2 Code(s): E11.10 - TYPE 2 DIABETES MELLITUS WITH KETOACIDOSIS WITHOUT COMA Status: Acute - Plan * Diabetes mellitus- DKA has resolved, and he has been stable on long acting insulin and SSI * Small Bowel Obstruction- he is s/p exploratory lap, and Lysis of adhesions * Agree with transfer out of the ICU. * Continue DVT and GI Prophylaxis
--- NOTE | 2018-06-18 11:07 | PDOC.OP ---
Operative Note - Operative Note Operative Note: PROCEDURE: Exploratory laparotomy, extensive lysis of adhesions, drainage of intra-abdominal and pre-peritoneal abscess, sigmoid colectomy and end colostomy. DATE OF PROCEDURE: 06/17/2018 SURGEON: Yonathan Amato M.D. PREOPERATIVE DIAGNOSES: Small bowel obstruction. POSTOPERATIVE DIAGNOSIS: Small bowel obstruction due to dense adhesions to right lower quadrant abscess originating from a sigmoid perforation into the preperitoneal tissues. HISTORY: Patient who presented to the emergency room with nausea and vomiting, who was found to be in diabetic ketoacidosis with severe electrolyte abnormalities. He was admitted to the ICU and recovered from his CTA, but had persistent nausea and vomiting and was found to have small bowel obstruction. This appeared to be at the level of the distal ileum on CT, and there was a structure in the right lower quadrant which was felt to be a focally dilated loop of bowel. Recommendation was made to proceed to the operating room for laparoscopic hand-assisted lysis of adhesions and possible small bowel resection. PROCEDURE IN DETAIL: After informed consent was obtained and appropriate preoperative antibiotics continued the patient was taken to the operating room he was placed in the supine position and general endotracheal anesthesia was administered. He was prepped and draped in a standard sterile fashion and local anesthesia was infused the skin and subcutaneous tissues the periumbilical location. A 6 cm incision was made and dissection carried down to the fascia which was incised in the midline. The peritoneum was identified, grasped, raised into the wound, palpated to ensure that no other organs were adherent, and sharply incised. The peritoneum was opened along the length of the fascial incision and the anterior abdominal wall palpated. There are no adhesions laterally or superiorly but there were dense adhesions inferiorly that felt inflammatory due to the thickened nature of the tissues. A plane was developed bluntly between the adherent bowel and the anterior abdominal wall and a large abscess cavity entered with a feculent odor. The abscess cavity was evacuated of several 100 mL of sanchez pus some of which was collected in a suction trap and sent for Gram stain and culture. The incision was extended superiorly and inferiorly in the midline for formal laparotomy and the fascial incision also extended to obtain adequate visualization of the lower abdomen. The abdomen was palpated and the gastric tube was confirmed to be in good position and decompressed stomach. Due to the severely dilated nature of the small intestine , the intestinal contents were milked retrograde into the stomach and evacuated with the NG tube with evacuation of well over a liter of fluid. The stomach was palpated intermittently to ensure that it was not becoming distended. Attention was then turned to the right lower quadrants adhesions. The abscess cavity was opened and appeared to be very chronic and large. It was felt that this was the fluid collection in the right lower quadrant seen on CT which was felt to be a focally dilated loop of bowel, but the cavity did not appear to be communicating with any of the loops of small bowel which were adherent to it. At least 2 feet of the distal ileum were densely adherent to the abscess cavity and these loops were carefully dissected free of each other, but could not be from the abscess cavity itself due to the very dense nature of these adhesions. For this reason the rind of the abscess cavity was left adherent to the small bowel loops, although part of the wall was resected and sent for pathology evaluation. Some omentum was also adherent in this area and the adherent omentum was left attached to the abscess but detached from the normal omentum using LigaSure. Using a combination of blunt digital dissection and sharp dissection, the small bowel loops were all eventually able to be detached from each other and from the abscess. One minute mucosal injury was repaired with a Vicryl suture and inverted with Lembert sutures in a transverse manner, and several minor serosal injuries were repaired with Lembert sutures transversely. Small bowel was carefully run from the ileocecal valve to the ligament of Treitz. All of the adhesions were in the distal ileum. Over 2 feet of distal ileum was involved with the adhesions, and they were present all the way down to within a few centimeters of the ileocecal valve. There is no evidence of stricture or necrosis resulting from the adhesions, and once all the adhesions were taken down and the bowel straightened out gas and fluid were easily able to be passed through this entire segment of bowel. The cecum appeared to be reactively inflamed but otherwise healthy and was not involved in the abscess. The appendix was reactively inflamed but was not the source of the abscess. Due to the patient's extensive right lower quadrant adhesions and the reactive inflammation of the appendix, the decision was made to resect this. The mesoappendix was sequentially ligated down to its base using LigaSure and the base of the appendix ligated with a Vicryl tie. A 3-0 silk pursestring suture was placed around the base of the appendix and the appendiceal stump was dunked and the pursestring suture secured over it. Attention was then turned to the remainder of the bowel. The patient had formed stool throughout his colon but no palpable masses were felt in the ascending transverse or descending colon. As the sigmoid colon was traced down into the pelvis, a very inflamed thickened loop of sigmoid colon was found. This was densely adherent to the anterior abdominal wall and was initially felt to be reactively inflamed thickened bladder, since there was no visible plane between the colon and the anterior abdominal wall. However, on tracing the more normal sigmoid colon down into the pelvis, it was clear that this was actually sigmoid colon. A plane was able to be developed with severe difficulty due to the dense nature of the adhesions, and the sigmoid colon slowly mobilized off of the anterior abdominal wall, with another abscess encountered with some feculent material as well as pus within the abscess. This was in the preperitoneal tissues and appeared to track toward the right lower quadrant abscess. It was felt that the patient likely had diverticulitis which perforated into the preperitoneal tissues and then tracked upward forming the large right lower quadrant abscess which then caused the bowel obstruction. The sigmoid colon loop was able to be completely mobilized off of the anterior abdominal wall with difficulty. The distal rectum was normal to palpation as was the descending and distal sigmoid colon, although the presence of hard formed stool within the colon made it difficult to fully evaluate. The decision was made to perform a Mera's procedure. The white line of Toldt was incised laterally and the sigmoid colon mobilized medially. The left ureter and gonadal vessels were easily palpable in their usual location. The retroperitoneum was opened and the ureter was confirmed to peristalse. This was well lateral to the area of dissection and was carefully avoided for the remainder of the case. The fatty tissue surrounding the upper rectum were divided with electrocautery and a window created posteriorly. A NORIS stapler was placed across the upper rectum and fired and the rectum was divided. The mesorectum and mesentery of the abnormal sigmoid colon was divided using LigaSure. The patient had a rather short mesentery which would have made it difficult to bring the descending colon out through the abdominal wall laterally, so the decision was made to bring the distal sigmoid colon up through the abdominal wall to create a colostomy. An ellipse of skin and subcutaneous tissue were excised overlying the rectus sheath on the left and the anterior rectus sheath incised in a cruciate manner. The rectus muscles were split and the posterior sheath also divided in a cruciate manner. The tract was dilated and the colon brought out through the defect. This easily reached out beyond the skin. The colon was clamped with a [place] to prevent it from retracting while the abdominal cavity was irrigated and closed. The abdominal cavity was copiously irrigated with 4 L of warm saline until all return was clear. The operative field was examined and hemostasis verified. Since the sigmoid colon had been so densely adherent to the anterior abdominal wall the bladder was distended with methylene blue and no evidence of leakage from the distended bladder was seen. The small intestine was returned to its usual anatomic location taking care that the mesentery was not twisted, and the omentum drawn down over the small bowel. The loops of bowel which had portions of the abscess cavity adherent to it were covered with strips of Seprafilm and Seprafilm was also placed over the surface of the anterior portion of the abscess cavity wall and between the anterior abdominal wall and the small bowel and omentum. ISAAC was placed in the right lateral abdomen and secured to the skin. The inner portion was drawn down through the area of the drained abscess and into the pelvis. The fascia was closed under direct vision with a running PDS suture and the wound was copiously irrigated. The umbilicus was reapproximated with 3-0 Monocryl subcutaneous sutures and the skin at the umbilicus and at the upper and lower portions of the incision was reapproximated with skin juan r. The remainder of the wound was packed with moist Kerlix and covered with a sterile towel. Attention was then turned to maturation of the colostomy. The colon was secured circumferentially to the anterior rectus sheath with silk sutures. The distal portion of the colostomy was resected and an everted colostomy created by securing full-thickness edge of the bowel to Lembert sutures centimeters several centimeters proximal and then to the dermis at 4 quadrants and then securing the full-thickness of the bowel to the dermis at intervals between. A colostomy appliance was placed and sterile dressings placed to the midline and ISAAC exit sites. The patient was extubated and taken to recovery in good condition. Estimated blood loss was 200 mL's. No complications. Specimen is sigmoid colon, pus for Gram stain and culture, and segments of abscess wall.
--- NOTE | 2018-06-18 15:33 | PDOC.GSPN ---
Surgery Progress Note: Subj - Subjective Narrative: Patient feels pretty good. He does have some pain when he moves around in the bed but is pretty comfortable at rest. No nausea. NG output has been minimal since his return from the OR. No colostomy output yet. VAC is in place and ISAAC output is serosanguineous. Assessment/plan: Small bowel obstruction due to perforated diverticulitis and adhesions to a large abscess cavity. Awaiting return of bowel function. He can have some ice chips. I will get PT to work with him. He should wear a binder when he is out of bed. Okay from a surgical standpoint for him to go to the surgical stroud. Surgery Progress Note: Obj - Vital signs Vital signs: Vital Signs - Most Recent Temp Pulse Resp BP Pulse Ox 99.2 F 107 H 22 H 120/82 92 L 06/18/18 11:51 06/17/18 21:39 06/17/18 21:39 06/17/18 21:39 06/18/18 07:23 Surgery Progress Note: Results - Labs Result Diagrams: 06/18/18 03:56 06/18/18 03:56 Lab results: Laboratory Results - last 24 hr 06/18/18 06/18/18 06/18/18 03:56 03:56 03:58 WBC 19.4 H RBC 4.70 Hgb 14.9 Hct 45.6 MCV 97.0 MCH 31.6 H MCHC 32.6 RDW 13.3 Plt Count 311 MPV 7.8 Neutrophils % 75.2 H Lymphocytes % 11.7 L Monocytes % 12.4 H Eosinophils % 0.5 Basophils % 0.2 Neutrophils # 14.6 H Lymphocytes # 2.3 Monocytes # 2.4 H Eosinophils # 0.1 Basophils # 0.0 Sodium 143 Potassium 4.7 Chloride 117 H Carbon Dioxide 17 L Anion Gap 14 BUN 22 H Creatinine 0.78 Estimated GFR (MDRD) Greater than 90 Glucose 180 H POC Glucose 168 H Calcium 7.5 L 06/18/18 06/18/18 07:57 11:27 WBC RBC Hgb Hct MCV MCH MCHC RDW Plt Count MPV Neutrophils % Lymphocytes % Monocytes % Eosinophils % Basophils % Neutrophils # Lymphocytes # Monocytes # Eosinophils # Basophils # Sodium Potassium Chloride Carbon Dioxide Anion Gap BUN Creatinine Estimated GFR (MDRD) Glucose POC Glucose 153 H 163 H Calcium
[2018-06-19 04:24] LABS: Phosphorus 3.7 mg/dL (2.3-4.7)
[2018-06-19 04:36] LABS: ALT (SGPT) 29 U/L (8-55); AST (SGOT) 30 U/L (5-34); Albumin 2.3 g/dL (3.5-5.0); Alkaline Phosphatase 129 U/L (40-150); Anion Gap 15 mmol/L (10-20); BUN (Urea Nitrogen) 17 mg/dL (8.9-20.6); Bilirubin, Total 0.4 mg/dL (0.2-1.2); Calc. Creatinine Clearance 286 mL/min (70-130); Calcium 7.8 mg/dL (7.8-10.44); Carbon Dioxide 18 mmol/L (22-29); Cardiac Risk 2.5 (Less than 4.5); Chloride 116 mmol/L (98-107); Cholesterol 43 mg/dl (< 200 Desired); Estimated GFR-MDRD Greater than 90; Globulin 3.1 g/dL (2.4-3.5); Glucose 160 mg/dL (70-105); HDL Cholesterol 17 mg/dL (>60 Neg Risk); LDL Cholesterol, Calculated 10 mg/dL; Magnesium 2.7 mg/dL (1.6-2.6); Potassium 4.2 mmol/L (3.5-5.1); Protein, Total 5.4 g/dL (6.0-8.3); Sodium 145 mmol/L (136-145); Triglycerides 79 mg/dL (Less than 150)
[2018-06-19 04:44] LABS: Band 19 % (5-11); Lymphocytes 12 % (21-51); MDiff Complete? YES; Mean Corpuscular HGB CONC 32.1 g/dL (32.0-36.0); Mean Corpuscular Volume 99.5 fL (78.0-98.0); Mean Platelet Volume 7.6 fL (7.4-10.4); Metamyelocyte 2 % (0-0); Monocytes 6 % (0-10); Neutrophil 61 % (42-75); Platelet Count 253 thou/uL (130-400); Platelet Morphology Comment Appears Adequate; RBC Distribution Width 13.4 % (11.5-14.5); Red Blood Cell (RBC) Count 4.06 mill/uL (4.70-6.10); White Blood Cell (WBC) Count 20.9 thou/uL (4.8-10.8)
[2018-06-19] MEDS: Morphine CADD 1 MG/ML CADD IVPB PRN (05:20)
[2018-06-19] MEDS: MEROPENEM 1 GM/50 ML 1 GM in Premix Bag 1 BAG IVPB SCH ×3 (06:05→21:24)
--- NOTE | 2018-06-19 08:13 | PRG ---
DATE OF SERVICE: 06/19/2018 SUBJECTIVE: He is awake, alert. He says he feels good. OBJECTIVE: VITAL SIGNS: On exam, temperature 99.8, pulse 97, blood pressure 121/97, and O2 sat 100%. 24-hour intake 2351, output 2090. HEENT: Unremarkable. NECK: No adenopathy, JVD, or bruits. LUNGS: Clear. CARDIAC: S1 and S2, regular. ABDOMEN: Soft. Surgical wound is healing well. EXTREMITIES: No edema. LABORATORY DATA: White blood cell count 20, hematocrit 40, and platelet count 253. Sodium 145, potassium 4.2, chloride 116, CO2 of 18, anion gap 11, BUN 17, creatinine 0.6, and glucose 160. ASSESSMENT: 1. Resolved diabetic ketoacidosis. 2. Status post laparotomy for abdominal abscess and bowel obstruction. PLAN: The patient is awaiting transfer to the surgical floor. He is to continue antibiotics. His insulin is currently being given in the form of NPH and will need to be revised once he starts on a diet. Pulmonary will see less often. Job ID: [id number]
[2018-06-19] MEDS: Pantoprazole 40 MG VIAL IVP SCH (09:20)
[2018-06-19] MEDS: Enoxaparin Sodium 40 MG/0.4 ML SYRINGE SC SCH (09:20)
[2018-06-19] MEDS: NPH, Human Insulin Isophane 300 UNIT/3 ML VIAL SC SCH ×2 (09:20→21:25)
--- NOTE | 2018-06-19 10:47 | PDOC.PN ---
- Subjective Encounter Start Date: 06/19/18 Encounter Start Time: 10:46 Mr. Oakley was seen today in follow-up of DKA, and small bowel obstruction. He does not have any complaints.He says the abdominal pain is controlled. - Objective MAR Reviewed: Yes Vital Signs & Weight: Vital Signs (12 hours) Temp Pulse Ox 06/19/18 09:00 98.1 F 06/19/18 08:00 99 06/19/18 03:00 99.8 F H 06/19/18 01:00 98.4 F Weight Admit Weight 306 lb Weight 306 lb 0.026 oz Most Recent Monitor Data Heart Rate from ECG 98 NIBP 121/87 NIBP BP-Mean 98 Respiration from ECG 15 SpO2 100 I&O: 06/18/18 06/19/18 06/20/18 06:59 06:59 06:59 Intake Total 1267 2351 50 Output Total 2079 2089 80 Balance -813 261 -30 Result Diagrams: 06/19/18 03:55 06/19/18 03:55 Additional Labs: Accuchecks 06/19/18 06/18/18 06/18/18 06:05 20:52 17:23 POC Glucose 139 H 138 H 128 H 06/18/18 11:27 POC Glucose 163 H Phys Exam - Physical Examination HEENT: PERRLA Respiratory: no wheezing, no rales, no rhonchi, clear to auscultation bilateral Cardiovascular: RRR, no significant murmur, no rub Gastrointestinal: soft, no distention + left sided tenderness no rebound or guarding Musculoskeletal: pulses present, edema present Dx/Plan (1) Small bowel obstruction Code(s): K56.609 - UNSP INTESTNL OBST, UNSP TO PARTIAL VERSUS COMPLETE OBST Status: Acute (2) Diabetes mellitus type 2 in obese Code(s): E11.69 - TYPE 2 DIABETES MELLITUS WITH OTHER SPECIFIED COMPLICATION; E66.9 - OBESITY, UNSPECIFIED Status: Acute (3) DKA, type 2 Code(s): E11.10 - TYPE 2 DIABETES MELLITUS WITH KETOACIDOSIS WITHOUT COMA Status: Acute - Plan * Small Bowel Obstruction- continue as per General Surgery- NG tiube remains in place * DM- blood glucose is continued * Nutrition- Consider starting TPN.
--- NOTE | 2018-06-19 17:29 | PDOC.GSPN ---
Surgery Progress Note: Subj - Subjective Narrative: Patient feels good. Minimal pain when he is moving around but otherwise comfortable. No nausea. He states that he is extremely hungry. No colostomy output yet. Abdomen is soft and nondistended. VAC is in place. NG output is light green in color and diminished in volume. ISAAC output is serosanguineous. Abscess cultures are still pending but Gram stain showed multiple different organisms consistent with a colonic source. Assessment/plan: Status post sigmoid colectomy and colostomy and drainage of intra-abdominal abscess and lysis of adhesions. Awaiting return of bowel function, but we'll try sips of clears and check NG residuals. Surgery Progress Note: Obj - Vital signs Vital signs: Vital Signs - Most Recent Temp Pulse Resp BP Pulse Ox 98.1 F 107 H 22 H 118/77 97 06/19/18 09:00 06/19/18 14:17 06/17/18 21:39 06/19/18 14:17 06/19/18 14:17 Surgery Progress Note: Results - Labs Result Diagrams: 06/19/18 03:55 06/19/18 03:55 Lab results: Laboratory Results - last 24 hr 06/19/18 06/19/18 06:05 15:23 POC Glucose 139 H 166 H
[2018-06-19] MEDS: Sodium Chloride 0.45% 1,000 ML IV SCH (18:57)
[2018-06-20] MEDS: Sodium Chloride 0.45% 1,000 ML IV SCH ×3 (05:16→20:27)
[2018-06-20] MEDS: MEROPENEM 1 GM/50 ML 1 GM in Premix Bag 1 BAG IVPB SCH ×3 (05:17→21:19)
[2018-06-20 06:59] LABS: #Eosinphils 0.1 thou/uL (0.0-0.7); #Lymphocytes 2.5 thou/uL (1.20-3.40); #Monocytes 1.4 thou/uL (0.11-0.59); #Neutrophils 11.6 thou/uL (1.40-6.50); %Eosinophils 0.5 % (0.0-10.0); %Lymphocytes 16.2 % (21.0-51.0); %Monocytes 9.1 % (0.0-10.0); %Neutrophils 74.2 % (42.0-75.0); Hemoglobin 11.5 g/dL (14.0-18.0); Mean Corpuscular HGB CONC 32.3 g/dL (32.0-36.0); Mean Corpuscular Hemoglobin 32.2 pg (27.0-31.0); Mean Corpuscular Volume 99.6 fL (78.0-98.0); Mean Platelet Volume 7.7 fL (7.4-10.4); Platelet Count 262 thou/uL (130-400); RBC Distribution Width 13.1 % (11.5-14.5); Red Blood Cell (RBC) Count 3.57 mill/uL (4.70-6.10); White Blood Cell (WBC) Count 15.7 thou/uL (4.8-10.8)
[2018-06-20 07:01] LABS: Anion Gap 11 mmol/L (10-20); BUN (Urea Nitrogen) 15 mg/dL (8.9-20.6); Calc. Creatinine Clearance 331 mL/min (70-130); Calcium 7.9 mg/dL (7.8-10.44); Carbon Dioxide 25 mmol/L (22-29); Chloride 114 mmol/L (98-107); Estimated GFR-MDRD Greater than 90; Glucose 135 mg/dL (70-105); Potassium 3.7 mmol/L (3.5-5.1); Sodium 146 mmol/L (136-145)
[2018-06-20] MEDS: Pantoprazole 40 MG VIAL IVP SCH (08:22)
[2018-06-20] MEDS: NPH, Human Insulin Isophane 300 UNIT/3 ML VIAL SC SCH ×2 (08:22→20:21)
[2018-06-20] MEDS: Enoxaparin Sodium 40 MG/0.4 ML SYRINGE SC SCH (08:22)
--- NOTE | 2018-06-20 14:29 | PDOC.PN ---
- Subjective Encounter Start Date: 06/20/18 Encounter Start Time: 14:27 Mr. Oakley was seen today in follow-up of diabetes management. He does not have any complaints today he denies abdominal pain. - Objective MAR Reviewed: Yes Vital Signs & Weight: Vital Signs (12 hours) Temp Pulse Resp BP BP Pulse Ox 06/20/18 11:28 92 L 06/20/18 11:20 99.4 F 103 H 18 111/74 92 L 06/20/18 07:35 98.7 F 100 22 H 137/79 91 L 06/20/18 04:26 99.5 F 96 18 121/49 L 94 L Weight Admit Weight 306 lb Weight 306 lb 0.026 oz Most Recent Monitor Data Heart Rate from ECG 110 NIBP 134/92 NIBP BP-Mean 106 Respiration from ECG 20 SpO2 96 I&O: 06/19/18 06/20/18 06/21/18 06:59 06:59 06:59 Intake Total 2351 541 Output Total 2090 500 Balance 261 41 Result Diagrams: 06/20/18 05:46 06/20/18 05:46 Additional Labs: Accuchecks 06/20/18 06/20/18 06/19/18 10:56 05:50 23:32 POC Glucose 147 H 120 H 170 H 06/19/18 15:23 POC Glucose 166 H Phys Exam - Physical Examination HEENT: PERRLA Respiratory: no wheezing, no rales, no rhonchi, clear to auscultation bilateral Cardiovascular: RRR, no significant murmur, no rub Gastrointestinal: soft, non-tender, positive bowel sounds Musculoskeletal: no edema, pulses present Dx/Plan (1) Small bowel obstruction Code(s): K56.609 - UNSP INTESTNL OBST, UNSP TO PARTIAL VERSUS COMPLETE OBST Status: Acute (2) Diabetes mellitus type 2 in obese Code(s): E11.69 - TYPE 2 DIABETES MELLITUS WITH OTHER SPECIFIED COMPLICATION; E66.9 - OBESITY, UNSPECIFIED Status: Acute (3) DKA, type 2 Code(s): E11.10 - TYPE 2 DIABETES MELLITUS WITH KETOACIDOSIS WITHOUT COMA Status: Acute - Plan * DM- blood glucose has been stable. It appears he has been advanced to a clear liquid diet, once he is tolerating more by mouth, with consider adjusting his diabetic regimen * Small Bowel Obstruction- he is s/p exploratory lap with lysis of adhesions
--- NOTE | 2018-06-20 14:50 | PQF ---
CLINICAL DOCUMENTATION IMPROVEMENT CLARIFICATION FORM: ICD-10 Updated PLEASE DO AN ADDENDUM TO THE PROGRESS NOTE WITH ANY DOCUMENTATION UPDATES OR ADDITIONS AND CARRY THROUGH TO DC SUMMARY. THANK YOU. DATE: 06/20/2018; 06/21/2018; 06/24/2018 ATTN: Dr. Lake Please exercise your independent, professional judgment in responding to the clarification form. Clinical indicators are provided on the bottom of this form for your review Please check appropriate box(es): [ ] Sepsis due to: [ ] Severe sepsis with acute organ dysfunction of: [ ] Localized infection without sepsis [ ] Other diagnosis [ X ] Unable to determine In addition, please specify: Present on Admission (POA): [ ] Yes [ ] No [ X ] Unable to determine For continuity of documentation, please document condition throughout progress notes and discharge summary. Thank You. CLINICAL INDICATORS - SIGNS / SYMPTOMS / LABS ER Record 06/12/2018: BP 71/50 Pulse 142 Resp: 38 O2 sat 98 on Bipap Pt has been thoroughly evaluated and appears to have sepsis. Diagnosis: Severe DKA. Elevated D-dimer, hypercapnea, Sepsis, severe hypokalemia H&P 06/12: He said he was having "stomach problems" in which he started vomiting and lost his appetite. This went on for several days. He is being admitted for DKA as well as severe hypokalemia. White blood cell count 22.[address] scan Chest 06/12: Of note, there are incompletely evaluated dilated loops of small bowel noted within the left upper quadrant which could signify ileus or obstruction. PN 06/14: Ileus unspecified. Operative Note 06/17: Small bowel obstruction due to dense adhesions to right lower quadrant abscess originating from a sigmoid perforation into the preperitoneal tissues. RISKS: H&P: Hx significant for diverticulitis. Diabetic ketoacidosis. Severe hypokalemia. LAURA. General Surgery 06/18: Small bowel obstruction due to perforated diverticulitis and adhesions to a large abscess cavity. TREATMENT: Order 06/12-06/17: IV Levaquin 750 mg General Surgery Consult Order 06/17: Meropenem 1 gm IV Thank you, Mira (This form is maintained as a part of the permanent medical record) 2014 [employer] All Rights Reserved Mira Luevano, RN, BSN [email or web address] Office: [phone] MTDD
--- NOTE | 2018-06-20 16:57 | PDOC.GSPN ---
Surgery Progress Note: Subj - Subjective Narrative: Patient's NG tube had to be put back to suction due to high residuals. He is still having a large amount of bilious drainage. He is not nauseated or having any pain but he has not passed any gas through his ostomy output. His wound is clean and his VAC was changed today. ISAAC drainage is serosanguineous and minimal. He still has a Morfin in which has some particulate manner. He was able to stand with physical therapy but is not very mobile. Assessment/plan: Status post drainage of intra-abdominal abscess lysis of adhesions and sigmoid colectomy and colostomy. Overall doing okay but still awaiting return of bowel function. This could take some time since he was so badly obstructed for so long. I'll order an x-ray for tomorrow to see how things look. I'm letting him have some sips of clears but he probably needs to start on TPN. This may unfortunately complicate his diabetes management. Advised to get his Morfin out but he is still having mobility issues. We will plan on removing this tomorrow morning. Surgery Progress Note: Obj - Vital signs Vital signs: Vital Signs - Most Recent Temp Pulse Resp BP Pulse Ox 98.6 F 90 20 133/82 91 L 06/20/18 15:34 06/20/18 15:34 06/20/18 15:34 06/20/18 15:34 06/20/18 15:34 Surgery Progress Note: Results - Labs Result Diagrams: 06/20/18 05:46 06/20/18 05:46 Lab results: Laboratory Results - last 24 hr 06/20/18 06/20/18 06/20/18 05:46 05:46 05:50 WBC 15.7 H RBC 3.57 L Hgb 11.5 L Hct 35.6 L MCV 99.6 H MCH 32.2 H MCHC 32.3 RDW 13.1 Plt Count 262 MPV 7.7 Neutrophils % 74.2 Lymphocytes % 16.2 L Monocytes % 9.1 Eosinophils % 0.5 Basophils % 0.0 Neutrophils # 11.6 H Lymphocytes # 2.5 Monocytes # 1.4 H Eosinophils # 0.1 Basophils # 0.0 Sodium 146 H Potassium 3.7 Chloride 114 H Carbon Dioxide 25 Anion Gap 11 BUN 15 Creatinine 0.57 L Estimated GFR (MDRD) Greater than 90 Glucose 135 H POC Glucose 120 H Calcium 7.9 06/20/18 06/20/18 10:56 15:34 WBC RBC Hgb Hct MCV MCH MCHC RDW Plt Count MPV Neutrophils % Lymphocytes % Monocytes % Eosinophils % Basophils % Neutrophils # Lymphocytes # Monocytes # Eosinophils # Basophils # Sodium Potassium Chloride Carbon Dioxide Anion Gap BUN Creatinine Estimated GFR (MDRD) Glucose POC Glucose 147 H 173 H Calcium
[2018-06-20] MEDS ORDERED: Fentanyl 100 MCG/2 ML VIAL SLOW IVP PRN (17:10)
[2018-06-21] MEDS: MEROPENEM 1 GM/50 ML 1 GM in Premix Bag 1 BAG IVPB SCH ×3 (05:38→22:09)
[2018-06-21 06:00] LABS: #Eosinphils 0.1 thou/uL (0.0-0.7); #Lymphocytes 1.9 thou/uL (1.20-3.40); #Monocytes 0.9 thou/uL (0.11-0.59); #Neutrophils 7.9 thou/uL (1.40-6.50); %Basophils 0.1 % (0.0-1.0); %Eosinophils 0.7 % (0.0-10.0); %Lymphocytes 17.9 % (21.0-51.0); %Monocytes 7.9 % (0.0-10.0); %Neutrophils 73.4 % (42.0-75.0); Hemoglobin 11.1 g/dL (14.0-18.0); Mean Corpuscular HGB CONC 32.7 g/dL (32.0-36.0); Mean Corpuscular Hemoglobin 32.1 pg (27.0-31.0); Mean Corpuscular Volume 98.1 fL (78.0-98.0); Mean Platelet Volume 7.1 fL (7.4-10.4); Platelet Count 260 thou/uL (130-400); RBC Distribution Width 12.7 % (11.5-14.5); Red Blood Cell (RBC) Count 3.46 mill/uL (4.70-6.10); White Blood Cell (WBC) Count 10.8 thou/uL (4.8-10.8)
[2018-06-21 06:14] LABS: Anion Gap 11 mmol/L (10-20); BUN (Urea Nitrogen) 9 mg/dL (8.9-20.6); Calc. Creatinine Clearance 394 mL/min (70-130); Calcium 7.4 mg/dL (7.8-10.44); Carbon Dioxide 24 mmol/L (22-29); Chloride 112 mmol/L (98-107); Estimated GFR-MDRD Greater than 90; Glucose 108 mg/dL (70-105); Potassium 3.4 mmol/L (3.5-5.1); Sodium 144 mmol/L (136-145)
[2018-06-21] MEDS ORDERED: Sodium Chloride 0.9% 500 ML IVPB SCH (07:30)
[2018-06-21] MEDS: Enoxaparin Sodium 40 MG/0.4 ML SYRINGE SC SCH (09:20)
[2018-06-21] MEDS: Pantoprazole 40 MG VIAL IVP SCH (09:21)
[2018-06-21] MEDS: NPH, Human Insulin Isophane 300 UNIT/3 ML VIAL SC SCH ×2 (09:21→22:12)
[2018-06-21] MEDS: Sodium Chloride 0.45% 1,000 ML IV SCH (10:13)
[2018-06-21] MEDS: Morphine CADD 1 MG/ML CADD IVPB PRN (10:21)
--- NOTE | 2018-06-21 13:25 | PDOC.GSPN ---
Surgery Progress Note: Subj - Subjective Narrative: Abdominal xray still with dilated small bowel loops and NG output high yesterday. Leave NG to intermittent low wall suction. TPN ordered. Will need to watch blood glucose levels and may need to add insulin to TPN. Await return of bowel function. May take some time as he had nausea and vomiting for at least 2 weeks before admission and had a high grade and very distal obstruction. Surgery Progress Note: Obj - Vital signs Vital signs: Vital Signs - Most Recent Temp Pulse Resp BP Pulse Ox 98.5 F 94 18 164/86 H 95 06/21/18 11:28 06/21/18 11:28 06/21/18 11:28 06/21/18 11:28 06/21/18 11:28 Surgery Progress Note: Results - Labs Result Diagrams: 06/21/18 05:45 06/21/18 05:45 Lab results: Laboratory Results - last 24 hr 06/21/18 06/21/18 06/21/18 05:45 05:45 05:45 WBC 10.8 RBC 3.46 L Hgb 11.1 L Hct 33.9 L MCV 98.1 H MCH 32.1 H MCHC 32.7 RDW 12.7 Plt Count 260 MPV 7.1 L Neutrophils % 73.4 Lymphocytes % 17.9 L Monocytes % 7.9 Eosinophils % 0.7 Basophils % 0.1 Neutrophils # 7.9 H Lymphocytes # 1.9 Monocytes # 0.9 H Eosinophils # 0.1 Basophils # 0.0 Sodium 144 Potassium 3.4 L Chloride 112 H Carbon Dioxide 24 Anion Gap 11 BUN 9 Creatinine 0.48 L Estimated GFR (MDRD) Greater than 90 Glucose 108 H POC Glucose 97 Calcium 7.4 L 06/21/18 11:30 WBC RBC Hgb Hct MCV MCH MCHC RDW Plt Count MPV Neutrophils % Lymphocytes % Monocytes % Eosinophils % Basophils % Neutrophils # Lymphocytes # Monocytes # Eosinophils # Basophils # Sodium Potassium Chloride Carbon Dioxide Anion Gap BUN Creatinine Estimated GFR (MDRD) Glucose POC Glucose 99 Calcium
[2018-06-21] MEDS ORDERED: Sodium Acetate 2 mEq/ml 40 MEQ, Sodium Chloride 30 MEQ, Potassium Chloride 20 MEQ, Pota... IV SCH ×2 (14:00)
--- NOTE | 2018-06-21 14:14 | RAD ---
KUB: 06/21/2018 PROVIDED CLINICAL HISTORY: Small bowel obstruction. COMPARISON: 06/17/2018 FINDINGS: An enteric catheter overlies the left upper quadrant. The abdominal bowel gas pattern is nonspecific with prominent gas-filled loops of small bowel present within the left upper quadrant. A drainage c atheter is noted, with the tip overlying the right lower quadrant. Laparotomy skin juan r are seen. IMPRESSION: 1. Interval postoperative change. 2. Nonspecific gaseous distention of the small bowel within the left mid abdomen. POS: TPC
--- NOTE | 2018-06-21 16:31 | PDOC.PN ---
- Subjective Encounter Start Date: 06/21/18 Encounter Start Time: 16:29 Nehal Oakley was seen today in follow-up of DM. He notes a little abdominal pain today. - Objective MAR Reviewed: Yes Vital Signs & Weight: Vital Signs (12 hours) Temp Pulse Resp BP Pulse Ox 06/21/18 16:10 99.3 F 97 16 158/97 H 93 L 06/21/18 11:28 98.5 F 94 18 164/86 H 95 06/21/18 07:34 97.9 F 89 18 130/86 94 L Weight Admit Weight 306 lb Weight 306 lb 0.026 oz Most Recent Monitor Data Heart Rate from ECG 110 NIBP 134/92 NIBP BP-Mean 106 Respiration from ECG 20 SpO2 96 I&O: 06/20/18 06/21/18 06/22/18 06:59 06:59 06:59 Intake Total 541 3766 Output Total 500 4430 Balance 41 -664 Result Diagrams: 06/21/18 05:45 06/21/18 05:45 Additional Labs: Accuchecks 06/21/18 06/21/18 06/20/18 11:30 05:45 23:55 POC Glucose 99 97 92 Phys Exam - Physical Examination HEENT: PERRLA Respiratory: no wheezing, no rales, no rhonchi, clear to auscultation bilateral Cardiovascular: RRR, no significant murmur, no rub Gastrointestinal: soft, non-tender, no distention, positive bowel sounds Musculoskeletal: no edema, pulses present Dx/Plan (1) Small bowel obstruction Code(s): K56.609 - UNSP INTESTNL OBST, UNSP TO PARTIAL VERSUS COMPLETE OBST Status: Acute (2) Diabetes mellitus type 2 in obese Code(s): E11.69 - TYPE 2 DIABETES MELLITUS WITH OTHER SPECIFIED COMPLICATION; E66.9 - OBESITY, UNSPECIFIED Status: Acute (3) DKA, type 2 Code(s): E11.10 - TYPE 2 DIABETES MELLITUS WITH KETOACIDOSIS WITHOUT COMA Status: Acute - Plan * Diabetes mellitus- blood glucose is stable * Small Bowel Obstruction- continue as per General Surgery- he continues with NG to suction * Continue PT/OT * Nutritional Support- will possibly be placed on TPN .
[2018-06-22] MEDS: HumaLOG 300 UNITS/3 ML VIAL SC PRN ×3 (00:49→13:23)
[2018-06-22] MEDS: Sodium Chloride 0.45% 1,000 ML IV SCH ×2 (01:42→15:11)
[2018-06-22] MEDS: MEROPENEM 1 GM/50 ML 1 GM in Premix Bag 1 BAG IVPB SCH ×3 (05:51→22:33)
[2018-06-22] MEDS: NPH, Human Insulin Isophane 300 UNIT/3 ML VIAL SC SCH (09:07)
[2018-06-22] MEDS: Enoxaparin Sodium 40 MG/0.4 ML SYRINGE SC SCH (09:09)
[2018-06-22] MEDS: Pantoprazole 40 MG VIAL IVP SCH (09:11)
[2018-06-22] MEDS ORDERED: Lidocaine 1% (PF) 30 ML VIAL ONE (10:03)
[2018-06-22 12:00] LABS: #Eosinphils 0.1 thou/uL (0.0-0.7); #Lymphocytes 1.3 thou/uL (1.20-3.40); #Monocytes 0.6 thou/uL (0.11-0.59); %Eosinophils 0.6 % (0.0-10.0); %Lymphocytes 14.4 % (21.0-51.0); %Monocytes 6.8 % (0.0-10.0); %Neutrophils 78.1 % (42.0-75.0); Hemoglobin 11.4 g/dL (14.0-18.0); Mean Corpuscular HGB CONC 33.1 g/dL (32.0-36.0); Mean Corpuscular Hemoglobin 32.3 pg (27.0-31.0); Mean Corpuscular Volume 97.5 fL (78.0-98.0); Mean Platelet Volume 7.1 fL (7.4-10.4); Platelet Count 274 thou/uL (130-400); RBC Distribution Width 12.5 % (11.5-14.5); Red Blood Cell (RBC) Count 3.54 mill/uL (4.70-6.10)
--- NOTE | 2018-06-22 12:04 | PDOC.GSPN ---
Surgery Progress Note: Subj - Subjective Narrative: Outpatient with wound care team today. Midline incision looks great with granulation tissue forming. The stoma looks healthy but the lower edges from the skin. This was repaired with 3-0 Vicryl sutures after Betadine prep and infiltration of local anesthesia. Still no ostomy output but the patient feels like his bowels are trying to move. 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 The patient has been drinking a lot of fluids because he feels hungry. His overall energy is better since starting TPN and his blood sugars have been under 200. Assessment/plan: Overall doing reasonably well but still awaiting return of bowel function. Tolerating TPN without extremely high blood sugars. Surgery Progress Note: Obj - Vital signs Vital signs: Vital Signs - Most Recent Temp Pulse Resp BP Pulse Ox 99.1 F 90 18 172/94 H 96 06/22/18 11:05 06/22/18 11:05 06/22/18 11:05 06/22/18 11:05 06/22/18 11:05 Surgery Progress Note: Results - Labs Result Diagrams: 06/22/18 11:44 06/21/18 05:45 Lab results: Laboratory Results - last 24 hr 06/22/18 06/22/18 11:26 11:44 WBC 9.0 RBC 3.54 L Hgb 11.4 L Hct 34.5 L MCV 97.5 MCH 32.3 H MCHC 33.1 RDW 12.5 Plt Count 274 MPV 7.1 L Neutrophils % 78.1 H Lymphocytes % 14.4 L Monocytes % 6.8 Eosinophils % 0.6 Basophils % 0.0 Neutrophils # 7.0 H Lymphocytes # 1.3 Monocytes # 0.6 H Eosinophils # 0.1 Basophils # 0.0 POC Glucose 221 H
[2018-06-22 12:19] LABS: Anion Gap 9 mmol/L (10-20); BUN (Urea Nitrogen) 8 mg/dL (8.9-20.6); Calc. Creatinine Clearance 337 mL/min (70-130); Calcium 7.4 mg/dL (7.8-10.44); Carbon Dioxide 25 mmol/L (22-29); Chloride 112 mmol/L (98-107); Estimated GFR-MDRD Greater than 90; Glucose 243 mg/dL (70-105); Potassium 3.3 mmol/L (3.5-5.1); Sodium 143 mmol/L (136-145)
[2018-06-22] MEDS ORDERED: Potassium Chloride 10 MEQ in Premix Bag 1 BAG IVPB SCH (15:00)
[2018-06-22] MEDS: [UNRECOGNIZED DRUG - OTHER] IV SCH (16:32)
[2018-06-22] MEDS: SODIUM CHLORIDE IV SCH (16:32)
[2018-06-22] MEDS: POTASSIUM CHLORIDE IV SCH (16:32)
[2018-06-22] MEDS: SODIUM ACETATE IV SCH (16:32)
--- NOTE | 2018-06-22 18:14 | PDOC.PN ---
- Subjective Encounter Start Date: 06/22/18 Encounter Start Time: 13:10 Mr. Oakley was seen today in follow-up of DM management. He does not have any complaints. He says his abdomen is a bit sore after he had wound care earlier. - Objective MAR Reviewed: Yes Vital Signs & Weight: Vital Signs (12 hours) Temp Pulse Resp BP Pulse Ox 06/22/18 15:12 98.7 F 92 16 175/93 H 95 06/22/18 11:05 99.1 F 90 18 172/94 H 96 06/22/18 07:38 98.2 F 101 H 20 156/103 H 96 Weight Admit Weight 306 lb Weight 306 lb 0.026 oz Most Recent Monitor Data Heart Rate from ECG 110 NIBP 134/92 NIBP BP-Mean 106 Respiration from ECG 20 SpO2 96 I&O: 06/21/18 06/22/18 06/23/18 06:59 06:59 06:59 Intake Total 3766 4884 Output Total 4467 6161 Balance -664 -1300 Result Diagrams: 06/22/18 11:44 06/22/18 11:44 Additional Labs: Accuchecks 06/22/18 06/22/18 06/22/18 17:55 11:26 05:17 POC Glucose 145 H 221 H 239 H 06/21/18 06/21/18 06/21/18 23:23 20:33 18:09 POC Glucose 189 H 190 H 155 H Phys Exam - Physical Examination HEENT: PERRLA Respiratory: no wheezing, no rales, no rhonchi, clear to auscultation bilateral Cardiovascular: RRR, no significant murmur, no rub Gastrointestinal: soft, non-tender, positive bowel sounds Musculoskeletal: no edema Dx/Plan (1) Small bowel obstruction Code(s): K56.609 - UNSP INTESTNL OBST, UNSP TO PARTIAL VERSUS COMPLETE OBST Status: Acute (2) Diabetes mellitus type 2 in obese Code(s): E11.69 - TYPE 2 DIABETES MELLITUS WITH OTHER SPECIFIED COMPLICATION; E66.9 - OBESITY, UNSPECIFIED Status: Acute (3) DKA, type 2 Code(s): E11.10 - TYPE 2 DIABETES MELLITUS WITH KETOACIDOSIS WITHOUT COMA Status: Acute (4) Hypertension Code(s): I10 - ESSENTIAL (PRIMARY) HYPERTENSION Status: Acute - Plan * SBO- patient continues with the NG tube, and is NPO * DM- blood glucose is a bit elevated- will change his regimen to Lantus, and increase the dose and titrate as needed * FEN- he is on TPN- and changes in insulin will be as above. * HTN- blood pressure is creeping up- will place a Catapres patch, and continue prn medications
[2018-06-22] MEDS ORDERED: hydrALAZINE 20 MG/ML VIAL SLOW IVP PRN (18:17)
[2018-06-22] MEDS ORDERED: cloNIDine 0.2mg/24 Hour PATCH TD SCH (18:30)
[2018-06-22] MEDS: Insulin Glargine 30 UNITS in Pre-Filled Syringe 1 EACH SC SCH (22:30)
[2018-06-23] MEDS: HumaLOG 300 UNITS/3 ML VIAL SC PRN ×2 (01:07→12:13)
[2018-06-23] MEDS: Sodium Chloride 0.45% 1,000 ML IV SCH ×3 (04:14→22:05)
[2018-06-23] MEDS: MEROPENEM 1 GM/50 ML 1 GM in Premix Bag 1 BAG IVPB SCH ×3 (06:00→22:35)
[2018-06-23 06:15] LABS: #Eosinphils 0.1 thou/uL (0.0-0.7); #Lymphocytes 1.9 thou/uL (1.20-3.40); #Monocytes 0.6 thou/uL (0.11-0.59); #Neutrophils 7.6 thou/uL (1.40-6.50); %Basophils 0.4 % (0.0-1.0); %Eosinophils 0.7 % (0.0-10.0); %Lymphocytes 18.3 % (21.0-51.0); %Monocytes 6.3 % (0.0-10.0); %Neutrophils 74.3 % (42.0-75.0); Hemoglobin 12.5 g/dL (14.0-18.0); Mean Corpuscular HGB CONC 33.3 g/dL (32.0-36.0); Mean Corpuscular Hemoglobin 32.2 pg (27.0-31.0); Mean Corpuscular Volume 96.8 fL (78.0-98.0); Mean Platelet Volume 7.2 fL (7.4-10.4); Platelet Count 333 thou/uL (130-400); RBC Distribution Width 12.6 % (11.5-14.5); Red Blood Cell (RBC) Count 3.87 mill/uL (4.70-6.10); White Blood Cell (WBC) Count 10.2 thou/uL (4.8-10.8)
[2018-06-23 06:39] LABS: Anion Gap 10 mmol/L (10-20); BUN (Urea Nitrogen) 7 mg/dL (8.9-20.6); Calc. Creatinine Clearance 370 mL/min (70-130); Carbon Dioxide 26 mmol/L (22-29); Chloride 110 mmol/L (98-107); Estimated GFR-MDRD Greater than 90; Glucose 138 mg/dL (70-105); Potassium 3.2 mmol/L (3.5-5.1); Sodium 143 mmol/L (136-145)
[2018-06-23] MEDS: Enoxaparin Sodium 40 MG/0.4 ML SYRINGE SC SCH (08:38)
[2018-06-23] MEDS: Pantoprazole 40 MG VIAL IVP SCH (08:40)
--- NOTE | 2018-06-23 10:06 | PRG ---
DATE OF SERVICE: 06/23/2018 SUBJECTIVE: The patient reports he is feeling better. He has minimal pain. He has been eating a lot of ice. No nausea or vomiting. He has seen that his ostomy is putting out gas and some bowel movement. No nausea or vomiting. OBJECTIVE: VITAL SIGNS: Temperature 98.8, pulse 94, and blood pressure 142/89. He is up in a chair. He looks comfortable. NG has put out a tremendous amount. He put out 6,000 yesterday and 3,600 today but again he has eaten lot of ice. Draining output was 180 yesterday. Incisions are healing well. There is no evidence of infection. LABORATORY DATA: His white count is 10, hemoglobin and hematocrit 12 and 37, platelet count 333. Electrolytes; glucose 138, creatinine 0.5. ASSESSMENT: Status post Ericka's procedure. PLAN: Plan is to clamp his NG and check a residual in few hours. If it is low, then discontinue the NG tube as I suspect a lot of this high NG output is from ice. Job ID: [id number]
[2018-06-23] MEDS: Insulin Glargine 30 UNITS in Pre-Filled Syringe 1 EACH SC SCH ×2 (12:12→22:34)
--- NOTE | 2018-06-23 14:23 | PDOC.PN ---
- Subjective Encounter Start Date: 06/23/18 Encounter Start Time: 14:21 Mr. Oakley was seen today in follow-up of DM management, and SBO. He does not have any complaints today. His NG tube as been clamped. He denies any abdominal pain. - Objective MAR Reviewed: Yes Vital Signs & Weight: Vital Signs (12 hours) Temp Pulse Resp BP Pulse Ox 06/23/18 12:00 97.8 F 94 17 147/87 H 96 06/23/18 09:00 92 142/89 H 06/23/18 07:12 98.8 F 94 20 174/82 H 96 06/23/18 04:37 98.9 F 89 18 138/84 97 Weight Admit Weight 306 lb Weight 306 lb 0.026 oz Most Recent Monitor Data Heart Rate from ECG 110 NIBP 134/92 NIBP BP-Mean 106 Respiration from ECG 20 SpO2 96 I&O: 06/22/18 06/23/18 06/24/18 06:59 06:59 06:59 Intake Total 4884 2472 Output Total 6167 3620 Balance -1300 -1148 Result Diagrams: 06/23/18 06:00 06/23/18 06:00 Additional Labs: Accuchecks 06/23/18 06/23/18 06/23/18 11:16 05:48 00:30 POC Glucose 184 H 118 H 151 H 06/22/18 06/22/18 21:06 17:55 POC Glucose 161 H 145 H Phys Exam - Physical Examination HEENT: PERRLA Respiratory: no wheezing, no rales, no rhonchi, clear to auscultation bilateral Cardiovascular: RRR, no significant murmur, no rub Gastrointestinal: soft, non-tender, no distention, positive bowel sounds Colostomy site ok Musculoskeletal: no edema, pulses present Dx/Plan (1) Small bowel obstruction Code(s): K56.609 - UNSP INTESTNL OBST, UNSP TO PARTIAL VERSUS COMPLETE OBST Status: Acute (2) Diabetes mellitus type 2 in obese Code(s): E11.69 - TYPE 2 DIABETES MELLITUS WITH OTHER SPECIFIED COMPLICATION; E66.9 - OBESITY, UNSPECIFIED Status: Acute (3) DKA, type 2 Code(s): E11.10 - TYPE 2 DIABETES MELLITUS WITH KETOACIDOSIS WITHOUT COMA Status: Acute (4) Hypertension Code(s): I10 - ESSENTIAL (PRIMARY) HYPERTENSION Status: Acute - Plan * DM- blood gluose is stable * SBO- NG tube is clamped, hopefully it can be removed soon * Nutritional Support with TPN.
[2018-06-23] MEDS: POTASSIUM CHLORIDE IV SCH (17:38)
[2018-06-23] MEDS: [UNRECOGNIZED DRUG - OTHER] IV SCH (17:38)
[2018-06-23] MEDS: SODIUM CHLORIDE IV SCH (17:38)
[2018-06-23] MEDS: SODIUM ACETATE IV SCH (17:38)
[2018-06-24] MEDS: HumaLOG 300 UNITS/3 ML VIAL SC PRN ×2 (00:27→06:38)
[2018-06-24 04:58] LABS: #Eosinphils 0.1 thou/uL (0.0-0.7); #Lymphocytes 2.1 thou/uL (1.20-3.40); #Monocytes 0.7 thou/uL (0.11-0.59); #Neutrophils 7.6 thou/uL (1.40-6.50); %Basophils 0.1 % (0.0-1.0); %Eosinophils 0.7 % (0.0-10.0); %Lymphocytes 19.6 % (21.0-51.0); %Monocytes 6.8 % (0.0-10.0); %Neutrophils 72.8 % (42.0-75.0); Hemoglobin 11.5 g/dL (14.0-18.0); Mean Corpuscular HGB CONC 33.1 g/dL (32.0-36.0); Mean Corpuscular Volume 96.8 fL (78.0-98.0); Mean Platelet Volume 7.3 fL (7.4-10.4); Platelet Count 294 thou/uL (130-400); RBC Distribution Width 12.4 % (11.5-14.5); Red Blood Cell (RBC) Count 3.58 mill/uL (4.70-6.10); White Blood Cell (WBC) Count 10.5 thou/uL (4.8-10.8)
[2018-06-24 05:09] LABS: Anion Gap 10 mmol/L (10-20); BUN (Urea Nitrogen) 9 mg/dL (8.9-20.6); Calc. Creatinine Clearance 370 mL/min (70-130); Calcium 7.7 mg/dL (7.8-10.44); Carbon Dioxide 26 mmol/L (22-29); Chloride 107 mmol/L (98-107); Estimated GFR-MDRD Greater than 90; Glucose 157 mg/dL (70-105); Potassium 3.2 mmol/L (3.5-5.1); Sodium 140 mmol/L (136-145)
[2018-06-24] MEDS: MEROPENEM 1 GM/50 ML 1 GM in Premix Bag 1 BAG IVPB SCH ×3 (06:43→21:55)
[2018-06-24] MEDS: Enoxaparin Sodium 40 MG/0.4 ML SYRINGE SC SCH (08:25)
[2018-06-24] MEDS: Insulin Glargine 30 UNITS in Pre-Filled Syringe 1 EACH SC SCH ×2 (08:27→22:01)
[2018-06-24] MEDS: Pantoprazole 40 MG VIAL IVP SCH (08:28)
[2018-06-24] MEDS ORDERED: Potassium Chloride 40 MEQ in Premix Bag 1 BAG IVPB SCH (08:45)
--- NOTE | 2018-06-24 10:01 | PDOC.GSPN ---
Surgery Progress Note: Subj - Subjective Narrative: Patient is feeling well. Tolerating a liquid diet without nausea. Colostomy has copious solid stool output. Minimal serous ISAAC output. VAC is in place and abdomen is benign. Colostomy looks healthy. ISAAC was removed. Advancing diet to full liquid, and then to GI soft if tolerated. Adding Matt and Ensure. If patient tolerates this we'll likely discontinue TPN tomorrow. Surgery Progress Note: Obj - Vital signs Vital signs: Vital Signs - Most Recent Temp Pulse Resp BP Pulse Ox 98.5 F 87 20 151/79 H 95 06/24/18 07:06 06/24/18 07:06 06/24/18 07:06 06/24/18 07:06 06/24/18 07:06 Surgery Progress Note: Results - Labs Result Diagrams: 06/24/18 04:30 06/24/18 03:30 Lab results: Laboratory Results - last 24 hr 06/23/18 06/24/18 06/24/18 22:34 00:21 03:30 WBC RBC Hgb Hct MCV MCH MCHC RDW Plt Count MPV Neutrophils % Lymphocytes % Monocytes % Eosinophils % Basophils % Neutrophils # Lymphocytes # Monocytes # Eosinophils # Basophils # Sodium 140 Potassium 3.2 L Chloride 107 Carbon Dioxide 26 Anion Gap 10 BUN 9 Creatinine 0.51 L Estimated GFR (MDRD) Greater than 90 Glucose 157 H POC Glucose 179 H 168 H Calcium 7.7 L 06/24/18 06/24/18 04:30 06:14 WBC 10.5 RBC 3.58 L Hgb 11.5 L Hct 34.6 L MCV 96.8 MCH 32.0 H MCHC 33.1 RDW 12.4 Plt Count 294 MPV 7.3 L Neutrophils % 72.8 Lymphocytes % 19.6 L Monocytes % 6.8 Eosinophils % 0.7 Basophils % 0.1 Neutrophils # 7.6 H Lymphocytes # 2.1 Monocytes # 0.7 H Eosinophils # 0.1 Basophils # 0.0 Sodium Potassium Chloride Carbon Dioxide Anion Gap BUN Creatinine Estimated GFR (MDRD) Glucose POC Glucose 171 H Calcium
[2018-06-24 10:17] LABS: Magnesium 1.6 mg/dL (1.6-2.6); Phosphorus 3.4 mg/dL (2.3-4.7)
--- NOTE | 2018-06-24 10:44 | PDOC.PN ---
- Subjective Encounter Start Date: 06/24/18 Encounter Start Time: 10:43 Mr. Oakley was seen today in follow-up of DM and small bowel obstruction. He does not have any complaints this morning. He has been advanced a full liquid diet. - Objective MAR Reviewed: Yes Vital Signs & Weight: Vital Signs (12 hours) Temp Pulse Resp BP Pulse Ox 06/24/18 07:06 98.5 F 87 20 151/79 H 95 06/24/18 06:55 95 06/24/18 03:28 98.2 F 66 18 133/85 95 06/23/18 23:50 98.4 F 89 18 134/77 94 L Weight Admit Weight 306 lb Weight 306 lb 0.026 oz Most Recent Monitor Data Heart Rate from ECG 110 NIBP 134/92 NIBP BP-Mean 106 Respiration from ECG 20 SpO2 96 I&O: 06/23/18 06/24/18 06/25/18 06:59 06:59 06:59 Intake Total 2472 2280 2508 Output Total 3970 620 Balance -1498 1660 2508 Result Diagrams: 06/24/18 04:30 06/24/18 03:30 Additional Labs: Accuchecks 06/24/18 06/24/18 06/23/18 06:14 00:21 22:34 POC Glucose 171 H 168 H 179 H 06/23/18 06/23/18 18:10 11:16 POC Glucose 146 H 184 H Phys Exam - Physical Examination HEENT: PERRLA Respiratory: no wheezing, no rales, no rhonchi, clear to auscultation bilateral Cardiovascular: RRR, no significant murmur, no rub Gastrointestinal: soft, non-tender, positive bowel sounds Musculoskeletal: pulses present Dx/Plan (1) Small bowel obstruction Code(s): K56.609 - UNSP INTESTNL OBST, UNSP TO PARTIAL VERSUS COMPLETE OBST Status: Acute (2) Diabetes mellitus type 2 in obese Code(s): E11.69 - TYPE 2 DIABETES MELLITUS WITH OTHER SPECIFIED COMPLICATION; E66.9 - OBESITY, UNSPECIFIED Status: Acute (3) DKA, type 2 Code(s): E11.10 - TYPE 2 DIABETES MELLITUS WITH KETOACIDOSIS WITHOUT COMA Status: Acute (4) Hypertension Code(s): I10 - ESSENTIAL (PRIMARY) HYPERTENSION Status: Acute - Plan * DM- blood glucose has been stable- will continue the current dose of Lantus insulin and SSI * Small bowel Obstruction- improving- he is now on a full liquid diet * Hypokalemia- continue to replace * HTN- blood pressure is stable.
[2018-06-24] MEDS: Potassium Chloride 20 MEQ in Premix Bag 1 BAG IVPB SCH ×2 (11:41→14:12)
[2018-06-24] MEDS: [UNRECOGNIZED DRUG - OTHER] IV SCH (15:41)
[2018-06-24] MEDS: POTASSIUM CHLORIDE IV SCH (15:41)
[2018-06-24] MEDS: SODIUM ACETATE IV SCH (15:41)
[2018-06-24] MEDS: SODIUM CHLORIDE IV SCH (15:41)
[2018-06-24] MEDS: Sodium Chloride 0.45% 1,000 ML IV SCH (18:21)
[2018-06-25 04:51] LABS: #Eosinphils 0.1 thou/uL (0.0-0.7); #Lymphocytes 2.1 thou/uL (1.20-3.40); #Monocytes 0.5 thou/uL (0.11-0.59); #Neutrophils 5.3 thou/uL (1.40-6.50); %Basophils 0.4 % (0.0-1.0); %Eosinophils 1.4 % (0.0-10.0); %Lymphocytes 25.9 % (21.0-51.0); %Monocytes 6.7 % (0.0-10.0); %Neutrophils 65.6 % (42.0-75.0); Hemoglobin 10.7 g/dL (14.0-18.0); Mean Corpuscular HGB CONC 32.5 g/dL (32.0-36.0); Mean Corpuscular Hemoglobin 31.4 pg (27.0-31.0); Mean Corpuscular Volume 96.5 fL (78.0-98.0); Mean Platelet Volume 7.4 fL (7.4-10.4); Platelet Count 284 thou/uL (130-400); RBC Distribution Width 12.3 % (11.5-14.5); Red Blood Cell (RBC) Count 3.41 mill/uL (4.70-6.10); White Blood Cell (WBC) Count 8.1 thou/uL (4.8-10.8)
[2018-06-25 05:08] LABS: Anion Gap 11 mmol/L (10-20); BUN (Urea Nitrogen) 7 mg/dL (8.9-20.6); Calc. Creatinine Clearance 370 mL/min (70-130); Calcium 7.6 mg/dL (7.8-10.44); Carbon Dioxide 25 mmol/L (22-29); Chloride 109 mmol/L (98-107); Estimated GFR-MDRD Greater than 90; Glucose 154 mg/dL (70-105); Potassium 3.4 mmol/L (3.5-5.1); Sodium 142 mmol/L (136-145)
[2018-06-25] MEDS: MEROPENEM 1 GM/50 ML 1 GM in Premix Bag 1 BAG IVPB SCH ×3 (05:35→21:25)
[2018-06-25] MEDS: Pantoprazole 40 MG VIAL IVP SCH (09:59)
[2018-06-25] MEDS: Enoxaparin Sodium 40 MG/0.4 ML SYRINGE SC SCH (09:59)
[2018-06-25] MEDS: Insulin Glargine 30 UNITS in Pre-Filled Syringe 1 EACH SC SCH ×2 (10:06→21:25)
[2018-06-25] MEDS: Sodium Chloride 0.45% 1,000 ML IV SCH ×2 (10:09→21:36)
--- NOTE | 2018-06-25 10:46 | PDOC.PN ---
- Subjective Encounter Start Date: 06/25/18 Encounter Start Time: 10:44 Mr. Oakley was seen today in follow-up of DM and small bowel obstruction. He is able to keep his food down yesterday, no abdominal pain no nausea. - Objective MAR Reviewed: Yes Vital Signs & Weight: Vital Signs (12 hours) Temp Pulse Resp BP Pulse Ox 06/25/18 07:46 98.0 F 78 18 167/84 H 98 06/25/18 04:21 98 F 95 18 136/82 98 06/25/18 00:09 98.1 F 85 18 130/84 98 Weight Admit Weight 306 lb Weight 306 lb 0.026 oz Most Recent Monitor Data Heart Rate from ECG 110 NIBP 134/92 NIBP BP-Mean 106 Respiration from ECG 20 SpO2 96 I&O: 06/24/18 06/25/18 06/26/18 06:59 06:59 06:59 Intake Total 2280 7468 Output Total 620 550 Balance 1660 6918 Result Diagrams: 06/25/18 04:35 06/25/18 04:35 Additional Labs: Accuchecks 06/24/18 06/24/18 06/24/18 23:19 22:02 18:07 POC Glucose 200 H 178 H 103 06/24/18 11:57 POC Glucose 157 H Phys Exam - Physical Examination Respiratory: no wheezing, no rales, no rhonchi, clear to auscultation bilateral Cardiovascular: RRR, no significant murmur, no rub Gastrointestinal: soft, non-tender, no distention, positive bowel sounds Musculoskeletal: edema present Left lower extremity is larger than the right, with some non-pitting edema Dx/Plan (1) Small bowel obstruction Code(s): K56.609 - UNSP INTESTNL OBST, UNSP TO PARTIAL VERSUS COMPLETE OBST Status: Acute (2) Diabetes mellitus type 2 in obese Code(s): E11.69 - TYPE 2 DIABETES MELLITUS WITH OTHER SPECIFIED COMPLICATION; E66.9 - OBESITY, UNSPECIFIED Status: Acute (3) DKA, type 2 Code(s): E11.10 - TYPE 2 DIABETES MELLITUS WITH KETOACIDOSIS WITHOUT COMA Status: Acute (4) Hypertension Code(s): I10 - ESSENTIAL (PRIMARY) HYPERTENSION Status: Acute - Plan * SBO- resolving * DM- blood glucose is stable * Left lower extremity edema- will check an ultrasound to rule out DVT * Patient has been ambulating well.
--- NOTE | 2018-06-25 12:54 | ULT ---
LEFT LOWER EXTREMITY VENOUS DOPPLER: 06/25/2018 PROVIDED CLINICAL HISTORY: Left lower extremity edema. FINDINGS: Mcnally-scale and color Doppler sonography with spectral analysis was performed of the left common femor al, femoral, popliteal, posterior tibial, greater saphenous, and profunda femoral veins, demonstratin g a normal sonographic appearance to each. IMPRESSION: No sonographic evidence for left lower extremity deep venous thrombosis. POS: TPC
[2018-06-25] MEDS ORDERED: HYDROcodone/Acetaminophen 5/325 mg Tablet PO PRN (13:49)
--- NOTE | 2018-06-25 13:49 | PDOC.GSPN ---
Surgery Progress Note: Subj - Subjective Narrative: Patient is feeling good. He is able to get out of bed on his own and ambulate in the halls. His ostomy is working and the nurses are teaching him how to manage this. His VAC was changed today and he tolerated that well. 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 He is tolerating advancement to a soft diet without nausea or abdominal pain. His abdomen is soft nontender and nondistended and his ostomy looks healthy. He is afebrile and his white count is normal. Assessment/plan: Doing well status post drainage of intra-abdominal abscess and extensive lysis of adhesions with Mera's procedure. Bowel function has returned and I will switch him to oral pain medications. From a surgical standpoint he is ready for discharge. I have asked the dietitian and the nurses to educate him regarding his diabetes care. He is approved for home wound VAC and the nurses are continuing to work with him on ostomy care. I would recommend another week of oral antibiotics at discharge. He is growing pansensitive Escherichia coli and a couple of anaerobes from his culture so levofloxacin and Flagyl will likely be adequate. He had small numbers of normal skin campos including yeast but these are likely nonsignificant. I would like to see him back in either the wound care clinic or in my clinic in a week or 2 for suture removal and wound check Surgery Progress Note: Obj - Vital signs Vital signs: Vital Signs - Most Recent Temp Pulse Resp BP Pulse Ox 98.7 F 99 18 154/89 H 95 06/25/18 12:15 06/25/18 12:15 06/25/18 12:15 06/25/18 12:15 06/25/18 12:15 Surgery Progress Note: Results - Labs Result Diagrams: 06/25/18 04:35 06/25/18 04:35 Lab results: Laboratory Results - last 24 hr 06/25/18 06/25/18 06/25/18 04:35 04:35 05:54 WBC 8.1 RBC 3.41 L Hgb 10.7 L Hct 32.9 L MCV 96.5 MCH 31.4 H MCHC 32.5 RDW 12.3 Plt Count 284 MPV 7.4 Neutrophils % 65.6 Lymphocytes % 25.9 Monocytes % 6.7 Eosinophils % 1.4 Basophils % 0.4 Neutrophils # 5.3 Lymphocytes # 2.1 Monocytes # 0.5 Eosinophils # 0.1 Basophils # 0.0 Sodium 142 Potassium 3.4 L Chloride 109 H Carbon Dioxide 25 Anion Gap 11 BUN 7 L Creatinine 0.51 L Estimated GFR (MDRD) Greater than 90 Glucose 154 H POC Glucose 153 H Calcium 7.6 L 06/25/18 12:30 WBC RBC Hgb Hct MCV MCH MCHC RDW Plt Count MPV Neutrophils % Lymphocytes % Monocytes % Eosinophils % Basophils % Neutrophils # Lymphocytes # Monocytes # Eosinophils # Basophils # Sodium Potassium Chloride Carbon Dioxide Anion Gap BUN Creatinine Estimated GFR (MDRD) Glucose POC Glucose 189 H Calcium
[2018-06-25] MEDS: POTASSIUM CHLORIDE IV SCH (15:25)
[2018-06-25] MEDS: [UNRECOGNIZED DRUG - OTHER] IV SCH (15:25)
[2018-06-25] MEDS: SODIUM CHLORIDE IV SCH (15:25)
[2018-06-25] MEDS: SODIUM ACETATE IV SCH (15:25)
[2018-06-25] MEDS: HYDROcodone/Acetaminophen 5/325 mg Tablet PO PRN (23:43)
[2018-06-26] MEDS: MEROPENEM 1 GM/50 ML 1 GM in Premix Bag 1 BAG IVPB SCH (06:40)
[2018-06-26 07:14] LABS: #Eosinphils 0.1 thou/uL (0.0-0.7); #Lymphocytes 2.3 thou/uL (1.20-3.40); #Monocytes 0.6 thou/uL (0.11-0.59); #Neutrophils 4.7 thou/uL (1.40-6.50); %Basophils 0.3 % (0.0-1.0); %Eosinophils 1.2 % (0.0-10.0); %Lymphocytes 29.7 % (21.0-51.0); %Monocytes 7.3 % (0.0-10.0); %Neutrophils 61.5 % (42.0-75.0); Hemoglobin 11.5 g/dL (14.0-18.0); Mean Corpuscular HGB CONC 32.6 g/dL (32.0-36.0); Mean Corpuscular Hemoglobin 31.4 pg (27.0-31.0); Mean Corpuscular Volume 96.4 fL (78.0-98.0); Platelet Count 323 thou/uL (130-400); RBC Distribution Width 12.4 % (11.5-14.5); Red Blood Cell (RBC) Count 3.66 mill/uL (4.70-6.10); White Blood Cell (WBC) Count 7.7 thou/uL (4.8-10.8)
[2018-06-26 07:19] LABS: Anion Gap 12 mmol/L (10-20); BUN (Urea Nitrogen) 4 mg/dL (8.9-20.6); Calc. Creatinine Clearance 386 mL/min (70-130); Calcium 7.9 mg/dL (7.8-10.44); Carbon Dioxide 27 mmol/L (22-29); Chloride 106 mmol/L (98-107); Estimated GFR-MDRD Greater than 90; Glucose 104 mg/dL (70-105); Potassium 3.6 mmol/L (3.5-5.1); Sodium 141 mmol/L (136-145)
[2018-06-26] MEDS: Pantoprazole 40 MG VIAL IVP SCH (08:22)
[2018-06-26] MEDS: Enoxaparin Sodium 40 MG/0.4 ML SYRINGE SC SCH (08:23)
[2018-06-26] MEDS: Insulin Glargine 30 UNITS in Pre-Filled Syringe 1 EACH SC SCH (08:35)
[2018-06-26] MEDS: HYDROcodone/Acetaminophen 5/325 mg Tablet PO PRN (13:56)
[2018-06-26 15:26] LABS: Hemoglobin A1c 10.6 % (4.0-6.0)
[2018-06-26 15:53] VITALS: BP 114/73; TEMP 98.8
--- NOTE | 2018-06-27 03:58 | DIS ---
DATE OF ADMISSION: 06/12/2018 DATE OF DISCHARGE: 06/26/2018 DISCHARGE DISPOSITION: Home with home health. DISCHARGE DIAGNOSES: 1. Small bowel obstruction, status post intra-abdominal abscess drainage and extensive lysis of adhesions with Ericka procedure and status post wound VAC placement. 2. New diagnosis of diabetes mellitus. 3. Diabetic ketoacidosis upon presentation, which has resolved. DISCHARGE MEDICATIONS: 1. Insulin 70/30, 30 units b.i.d. before meals. 2. Florastor 250 mg daily for 14 days. 3. Metronidazole 500 mg p.o. t.i.d. for 10 days. 4. Glyburide 5 mg daily. 5. Levofloxacin 500 mg daily for 10 days. IN-HOUSE CONSULTATION: 1. General Surgery, Dr. Amato and Dr. Jordan. 2. Pulmonary Medicine, Dr. Loredo. PRIMARY CARE PHYSICIAN: None. The patient will establish care with Dr. Chandler Mccartney. PROCEDURES DONE IN THE HOSPITAL: 1. CT angio of the thorax on 06/12/2018 upon presentation, which was negative for any pulmonary embolism, which showed small bowel distention. 2. Abdominal x-ray multiple times throughout the hospitalization for followup of small bowel obstruction. 3. CT scan of the abdomen and pelvis on 06/15/2018, which shows diffusely dilated small bowel loops evident for small bowel obstruction and point of obstruction likely in the right lower quadrant with hepatic steatosis. Questionable bilateral pneumonia was also seen in this CT scan. 4. Exploratory laparotomy and adhesiolysis with drainage of intraabdominal and preperitoneal abscess with sigmoid colectomy and end colostomy by Dr. Amato on 06/17/2018. 5. Repeat abdominal x-ray following the surgery showed resolution of the small bowel obstruction. 6. Lower extremity Doppler ultrasound of the left leg, which is negative for any DVT. HISTORY OF PRESENTING ILLNESS: Mr. Oakley is a pleasant 43-year-old male without any significant history without any primary care physician, who presented to the emergency room with complaints of vomiting, loss of appetite, and shortness of breath. He was found to be in mild DKA with blood sugar of over 500, bicarb less than 8, potassium of 1.3. Initially, he was started on DKA protocol and admitted to [facility]. CT angio of the chest was also done in the ER, which was negative for any pulmonary embolism. Please see admission history and physical for further details. HOSPITAL COURSE: He was seen by Pulmonary Medicine, Dr. Loredo while he was in the [facility]. His DKA resolved. However, he continued to complain of abdominal symptoms and an abdominal x-ray was done. This was concerning for possible small bowel obstruction and General Surgery was consulted. Nasogastric tube was placed in. Electrolyte imbalances were corrected. Dr. Amato saw the patient on 06/15/2018, and a CT scan was done which was consistent with small-bowel obstruction. He was found to have significant leukocytosis. When his symptoms did not improve with conservative management, he was taken to the OR by Dr. Amato and underwent the above-mentioned surgery on 06/17/2018. He was treated with empiric antibiotics for the finding of intra-abdominal abscess due to perforated diverticulitis and adhesion. Eventually, he did improve and his nasogastric tube was removed and repeat abdominal x-ray showed improvement in his bowel obstruction. He has a colostomy and wound VAC at this time. He is doing well and eager to go home and Surgery has cleared him for discharge as well. Case Management has had arranging the home health and home wound VAC and outpatient wound care. He will follow up with Dr. Amato in the outpatient setting. Antibiotics have been transitioned to oral. He had a new diagnosis of diabetes in the hospital, presenting with diabetic ketoacidosis. I do not see if a hemoglobin A1c was checked. He will be started on insulin as well as glyburide. He is very enthusiastic about diet control and weight reduction. He is encouraged to follow up with primary care physician in the outpatient setting and he plans to follow up with Dr. Chandler Mccartney, who is also the physician for his mom. He was seen and examined prior to discharge and is feeling well. He denies any abdominal complaints. He is eating a normal diet and tolerating it so far. PHYSICAL EXAMINATION: VITAL SIGNS: This morning vital signs; temperature 98.7, pulse of 96, respirations 12, saturating 98% on room air, and blood pressure 113/78. GENERAL: No acute distress. Awake, alert, and oriented x3. ABDOMEN: Soft, nondistended. His colostomy has soft brown stools without any blood in it. Midline wound VAC is noticed. CHEST: Clear to auscultation bilaterally. LABORATORY DATA: His abdominal bacterial culture shows E coli and anaerobes. E coli is sensitive to levofloxacin, only resistant to ampicillin. He is being discharged after his home health is set up. TIME SPENT: Total time spent in the discharge 36 minutes. All questions were answered. Prescriptions were provided. Job ID: [id number]
== END 2018-06-26 16:51 | disposition home health service (06) | DRG 628 ==
LOC: ERS 17:04 → CCU 19:56 → SJJU 06-19 16:33
PROVIDERS: ADMIT Emergency Medicine; ATTEND Emergency Medicine
PROC: 0D9670Z Drainage of Stomach with Drainage Device, Via Natural or Artificial Opening (ICD-10-PCS; 2018-06-14)
PROC: 0DNW0ZZ Release Peritoneum, Open Approach (ICD-10-PCS; 2018-06-17)
PROC: 0W9G0ZZ Drainage of Peritoneal Cavity, Open Approach (ICD-10-PCS; 2018-06-17)
PROC: 0DTJ0ZZ Resection of Appendix, Open Approach (ICD-10-PCS; 2018-06-17)
PROC: 0DBN0ZZ Excision of Sigmoid Colon, Open Approach (ICD-10-PCS; 2018-06-17)
PROC: 0D1N0Z4 Bypass Sigmoid Colon to Cutaneous, Open Approach (ICD-10-PCS; 2018-06-17)
PROC: 3E0336Z Introduction of Nutritional Substance into Peripheral Vein, Percutaneous Approach (ICD-10-PCS; principal; 2018-06-21)
DX: E11.10 Type 2 diabetes mellitus with ketoacidosis without coma (principal); J18.9 Pneumonia, unspecified organism; N17.9 Acute kidney failure, unspecified; K56.609 Unspecified intestinal obstruction, unspecified as to partial versus complete obstruction; K57.20 Diverticulitis of large intestine with perforation and abscess without bleeding; Z68.41 Body mass index [BMI] 40.0-44.9, adult; K56.7 Ileus, unspecified; E87.6 Hypokalemia; Z87.891 Personal history of nicotine dependence; K66.0 Peritoneal adhesions (postprocedural) (postinfection); E83.39 Other disorders of phosphorus metabolism; E66.9 Obesity, unspecified; E11.43 Type 2 diabetes mellitus with diabetic autonomic (poly)neuropathy; K31.84 Gastroparesis; I10 Essential (primary) hypertension; E86.0 Dehydration; Z88.0 Allergy status to penicillin; B96.20 Unspecified Escherichia coli [E. coli] as the cause of diseases classified elsewhere; N25.89 Other disorders resulting from impaired renal tubular function
CPT/HCPCS: 36415; 36416; 36556; 51702; 71045; 71275; 74018; 74019; 74176; 80048; 80053; 80061; 81003; 81015; 82010; 82550; 82805; 83036; 83605; 83690; 83735; 83880; 84100; 84134; 84484; 85025; 85060; 85379; 86850; 86900; 86901; 87040; 87070; 87076; 87077; 87086; 87186; 87205; 87804; 88304; 88307; 90471; 90670; 90686; 93005; 93010; 94660; 96361; 96365; 96366; 96368; 96375; C9113; G0008; G0009; J0131; J0282; J0610; J1650; J1815; J1825; J1956; J2001; J2185; J2274; J2405; J2704; J2765; J3010; J3370; J3475; J3480; J7050; J7070; P9045; Q9966; Q9968; S0028

== ENCOUNTER 2018-06-26 21:34 | Emergency (ER) | payer OTHER | END 2018-06-26 23:39 | disposition home or self-care (01) | LOC: ERS 21:34 | DX: T81.89XA Other complications of procedures, not elsewhere classified, initial encounter (principal); E11.9 Type 2 diabetes mellitus without complications | CPT/HCPCS: 99283 ==

== ENCOUNTER 2018-06-27 08:51 | Outpatient (CLI) | payer OTHER ==
[2018-06-27] MEDS ORDERED: Lidocaine 4% Topical Sol 50 ML BOT ONE (09:00)
[2018-06-27] MEDS ORDERED: Sodium Chloride 0.9% 15 ML NEB ONE (09:00)
== END 2018-06-27 08:52 | disposition home or self-care (01) ==
LOC: WCC 08:51
PROVIDERS: ATTEND Family Medicine
DX: E11.10 Type 2 diabetes mellitus with ketoacidosis without coma (principal); K56.609 Unspecified intestinal obstruction, unspecified as to partial versus complete obstruction; Z90.49 Acquired absence of other specified parts of digestive tract
CPT/HCPCS: 97606; A4218

== ENCOUNTER 2018-06-29 07:22 | Emergency (ER) | payer OTHER ==
[2018-06-29] MEDS ORDERED: Acetaminophen 500 MG TAB ONE (08:45)
== END 2018-06-29 09:11 | disposition home or self-care (01) ==
LOC: ERS 07:22
DX: K94.03 Colostomy malfunction (principal); E11.9 Type 2 diabetes mellitus without complications
CPT/HCPCS: 99282

== ENCOUNTER 2018-07-01 09:56 | Outpatient (CLI) | payer OTHER ==
[~2018-07-01 09:56] MED LIST changes: -ISOVUE-370 76%-LOCM 1 ML ONE; +Lidocaine 4% Topical Sol 50 ML BOT ONE; +Sodium Chloride 0.9% 15 ML NEB ONE
== END 2018-07-01 09:57 | disposition home or self-care (01) ==
LOC: WCC 09:56
PROVIDERS: ATTEND Family Medicine
DX: T81.89XD Other complications of procedures, not elsewhere classified, subsequent encounter (principal)
CPT/HCPCS: 97606; A4218

== ENCOUNTER 2018-07-03 15:39 | Outpatient (CLI) | payer OTHER ==
[2018-07-03] MEDS ORDERED: Sodium Chloride 0.9% 15 ML NEB ONE (16:21)
[2018-07-03] MEDS ORDERED: Lidocaine 4% Topical Sol 50 ML BOT ONE (16:21)
== END 2018-07-03 15:40 | disposition home or self-care (01) ==
LOC: WCC 15:39
PROVIDERS: ATTEND Family Medicine
DX: T81.89XD Other complications of procedures, not elsewhere classified, subsequent encounter (principal)
CPT/HCPCS: 97606; A4218

== ENCOUNTER 2018-07-05 09:29 | Outpatient (CLI) | payer OTHER ==
[2018-07-05] MEDS ORDERED: Lidocaine 4% Topical Sol 50 ML BOT ONE (15:00)
[2018-07-05] MEDS ORDERED: Sodium Chloride 0.9% 15 ML NEB ONE (15:00)
== END 2018-07-05 09:30 | disposition home or self-care (01) ==
LOC: WCC 09:29
PROVIDERS: ATTEND Family Medicine
DX: T81.89XD Other complications of procedures, not elsewhere classified, subsequent encounter (principal)
CPT/HCPCS: 97605; A4218

== ENCOUNTER 2018-07-06 12:43 | Emergency (ER) | payer OTHER ==
[2018-07-06 13:46] LABS: #Basophils 0.1 thou/uL (0.0-0.2); #Eosinphils 0.2 thou/uL (0.0-0.7); #Lymphocytes 2.1 thou/uL (1.20-3.40); #Monocytes 0.6 thou/uL (0.11-0.59); #Neutrophils 4.1 thou/uL (1.40-6.50); %Eosinophils 2.7 % (0.0-10.0); %Monocytes 8.6 % (0.0-10.0); %Neutrophils 57.7 % (42.0-75.0); Hemoglobin 11.4 g/dL (14.0-18.0); Mean Corpuscular HGB CONC 31.9 g/dL (32.0-36.0); Mean Corpuscular Hemoglobin 31.8 pg (27.0-31.0); Mean Corpuscular Volume 99.5 fL (78.0-98.0); Mean Platelet Volume 6.8 fL (7.4-10.4); Platelet Count 406 thou/uL (130-400); RBC Distribution Width 13.1 % (11.5-14.5); Red Blood Cell (RBC) Count 3.59 mill/uL (4.70-6.10); White Blood Cell (WBC) Count 7.1 thou/uL (4.8-10.8)
[2018-07-06] MEDS ORDERED: Bacitracin Zinc 1 Packet ONE (14:15)
[2018-07-06 14:27] LABS: ALT (SGPT) 12 U/L (8-55); AST (SGOT) 21 U/L (5-34); Albumin 3.1 g/dL (3.5-5.0); Alkaline Phosphatase 121 U/L (40-150); Anion Gap 13 mmol/L (10-20); BUN (Urea Nitrogen) 4 mg/dL (8.9-20.6); Bilirubin, Total 0.3 mg/dL (0.2-1.2); Calc. Creatinine Clearance 0 mL/min (70-130); Calcium 8.6 mg/dL (7.8-10.44); Carbon Dioxide 22 mmol/L (22-29); Chloride 109 mmol/L (98-107); Estimated GFR-MDRD Greater than 90; Globulin 2.9 g/dL (2.4-3.5); Glucose 97 mg/dL (70-105); Potassium 3.5 mmol/L (3.5-5.1); Sodium 140 mmol/L (136-145)
== END 2018-07-06 14:45 | disposition home or self-care (01) ==
LOC: ERS 12:43
DX: T81.31XA Disruption of external operation (surgical) wound, not elsewhere classified, initial encounter (principal); E11.9 Type 2 diabetes mellitus without complications; Z79.4 Long term (current) use of insulin
CPT/HCPCS: 36415; 80053; 83605; 85025; 99283

== ENCOUNTER 2018-07-08 10:40 | Outpatient (CLI) | payer OTHER ==
[2018-07-08] MEDS ORDERED: Sodium Chloride 0.9% 15 ML NEB ONE (17:00)
== END 2018-07-08 10:41 | disposition home or self-care (01) ==
LOC: WCC 10:40
PROVIDERS: ATTEND Family Medicine
DX: T81.89XD Other complications of procedures, not elsewhere classified, subsequent encounter (principal)
CPT/HCPCS: 97602; A4218

== ENCOUNTER 2018-07-10 14:44 | Outpatient (CLI) | payer OTHER ==
[2018-07-10] MEDS ORDERED: Sodium Chloride 0.9% 15 ML NEB ONE (18:00)
== END 2018-07-10 14:45 | disposition home or self-care (01) ==
LOC: WCC 14:44
PROVIDERS: ATTEND Family Medicine
DX: T81.89XD Other complications of procedures, not elsewhere classified, subsequent encounter (principal)
CPT/HCPCS: 36415; 80053; 97605; A4218

== ENCOUNTER 2018-07-12 09:05 | Outpatient (CLI) | payer OTHER ==
[~2018-07-12 09:05] MED LIST changes: +Lidocaine 2% 11 ML SYR ONE; -Lidocaine 4% Topical Sol 50 ML BOT ONE
== END 2018-07-12 09:06 | disposition home or self-care (01) ==
LOC: WCC 09:05
PROVIDERS: ATTEND Family Medicine
DX: T81.89XD Other complications of procedures, not elsewhere classified, subsequent encounter (principal)
CPT/HCPCS: 99211; A4218; G0463

== ENCOUNTER 2018-07-15 15:53 | Outpatient (CLI) | payer OTHER ==
[~2018-07-15 15:53] MED LIST changes: -Lidocaine 2% 11 ML SYR ONE
== END 2018-07-15 15:54 | disposition home or self-care (01) ==
LOC: WCC 15:53
PROVIDERS: ATTEND Family Medicine
DX: T81.89XD Other complications of procedures, not elsewhere classified, subsequent encounter (principal)
CPT/HCPCS: 99211; A4218; G0463

== ENCOUNTER 2018-07-17 15:57 | Outpatient (CLI) | payer OTHER | END 2018-07-17 15:58 | disposition home or self-care (01) | LOC: WCC 15:57 | PROVIDERS: ATTEND Family Medicine | DX: T81.89XD Other complications of procedures, not elsewhere classified, subsequent encounter (principal) | CPT/HCPCS: 99211; A4218; G0463 ==

== ENCOUNTER 2018-07-19 09:01 | Outpatient (CLI) | payer OTHER ==
[2018-07-19] MEDS ORDERED: Sodium Chloride 0.9% 15 ML NEB ONE (15:00)
== END 2018-07-19 09:02 | disposition home or self-care (01) ==
LOC: WCC 09:01
PROVIDERS: ATTEND Family Medicine
DX: T81.89XD Other complications of procedures, not elsewhere classified, subsequent encounter (principal)
CPT/HCPCS: 99211; A4218; G0463

== ENCOUNTER 2018-07-22 07:55 | Outpatient (CLI) | payer OTHER ==
--- NOTE | 2018-07-22 13:43 | HP ---
HISTORY OF PRESENT ILLNESS: Mr. Adal Oakley is a very pleasant 43-year-old gentleman, who presents to the [facility] for evaluation of 2 wounds of the abdomen in the midline in addition to multiple wounds of the right and left buttocks. The patient underwent exploratory laparotomy, drainage of intraabdominal and preperitoneal abscesses and sigmoid colectomy with end colostomy on 06/17/[address] Yonathan Amato. The patient completed a course of negative pressure therapy for the midline abdominal wound and is now receiving dressing changes of Medihoney for the abdominal wounds. He is also receiving dressing changes of Medihoney for the wounds of the right and left buttocks. PAST MEDICAL HISTORY: 1. Diverticulitis. 2. Diabetes mellitus, newly diagnosed. PAST SURGICAL HISTORY: 1. Tonsillectomy. 2. Exploratory laparotomy, drainage of intraabdominal and preperitoneal abscesses, sigmoid colectomy and end colostomy. MEDICATIONS: 1. Florastor. 2. Glyburide. 3. [place]. 4. Lisinopril. 5. Levemir. 6. Atorvastatin. 7. Valium. 8. Tylenol. 9. Advil. 10. Flonase. 11. Benadryl. ALLERGIES: PENICILLIN. SOCIAL HISTORY: Significant for tobacco use of up to 2 packs of cigarettes per day for 10 to 15 years. The patient states that he stopped smoking 15 years ago. The patient admits to the heavy consumption of alcohol in the past. FAMILY HISTORY: Family history significant for coronary artery disease. The patient's mother was diagnosed with coronary artery disease. Family history is also significant for diabetes mellitus. The patient's paternal grandfather and a paternal uncle were both diagnosed with diabetes mellitus. PHYSICAL EXAMINATION: VITAL SIGNS: Temperature 97.9, pulse 91, respirations 18, and blood pressure 174/102. Accu-Chek 104. GENERAL: A 43-year-old gentleman, lying on table in examination room, in no acute distress. HEENT: Normocephalic, atraumatic. NECK: No nuchal rigidity. CHEST: Clear to auscultation. CV: Regular rate and rhythm. ABDOMEN: Soft, two midline abdominal wounds are present, which measure approximately 3.2 x 1.8 cm and 4.5 x 1.7 cm. Granulation tissue is present within the margins of each wound. No purulent drainage is associated with either wound. No erythema of the skin surrounding either wound is present. No maceration of the skin of the periwound of either wound is noted. EXTREMITIES: No clubbing or cyanosis. BACK: Multiple wounds of the right and left medial buttocks are present. No purulent drainage is associated with any of the wounds. No erythema of the skin surrounding any of the wounds is present. No maceration of the skin of the periwound of any of the wounds is noted. NEUROLOGIC: Grossly nonfocal. ASSESSMENT AND PLAN: 1. Midline abdominal wounds. As described above, the patient also has multiple wounds of the right and left medial buttock. [facility] 3 times per week after cleansing and irrigation with the assistance of Home Health. The patient will be seen by Dr. Amato in 1 week. I will see Mr. Oakley again in 2 weeks. 2. Diabetes mellitus. The patient's Accu-Chek in clinic today is 104. The patient has been told that for optimal wound healing his blood glucoses should remain below 150. 3. Diverticulitis. Job ID: [id number]
== END 2018-07-22 07:56 | disposition home or self-care (01) ==
LOC: WCC 07:55
PROVIDERS: ATTEND Family Medicine
DX: S31.109D Unspecified open wound of abdominal wall, unspecified quadrant without penetration into peritoneal cavity, subsequent encounter (principal); S31.829D Unspecified open wound of left buttock, subsequent encounter; S31.819D Unspecified open wound of right buttock, subsequent encounter; E11.69 Type 2 diabetes mellitus with other specified complication; K57.92 Diverticulitis of intestine, part unspecified, without perforation or abscess without bleeding
CPT/HCPCS: 97602; 99203; G0463

== ENCOUNTER 2018-07-29 15:03 | Outpatient (CLI) | payer OTHER ==
[2018-07-29] MEDS ORDERED: Sodium Chloride 0.9% 15 ML NEB ONE (17:50)
== END 2018-07-29 15:04 | disposition home or self-care (01) ==
LOC: WCC 15:03
PROVIDERS: ATTEND Family Medicine
DX: T81.89XD Other complications of procedures, not elsewhere classified, subsequent encounter (principal)
CPT/HCPCS: 97602; A4218

== ENCOUNTER 2018-08-05 10:08 | Outpatient (CLI) | payer OTHER ==
--- NOTE | 2018-08-05 09:46 | PRG ---
DATE OF SERVICE: 08/05/2018 HISTORY: Mr. Adal Oakley is a very pleasant 43-year-old gentleman, who presents to the Wound Center for evaluation of 2 wounds of the abdomen in the midline in addition to multiple wounds of the right and left buttocks. The patient underwent exploratory laparotomy, drainage of an intra-abdominal and a preperitoneal abscess, and sigmoid colectomy with end colostomy on 06/17/2018, by Dr. Yonathan Amato. The patient completed a course of negative pressure therapy for the midline abdominal wound and has been receiving dressing changes of Medihoney for the abdominal wounds. The patient is also receiving dressing changes of Medihoney for the wounds of the right and left buttocks. PHYSICAL EXAMINATION: VITAL SIGNS: Temperature 98.2, pulse 89, respirations 17, blood pressure 147/88. Accu-Chek 111. ABDOMEN: Soft. Two midline abdominal wounds are present. The larger wound measures approximately 3.2 x 0.8 cm. Granulation tissue is present within the margins of each wound. Hypergranulation within the margins of the larger wound was treated with the application of silver nitrate. No purulent drainage is associated with either wound. No erythema of the skin surrounding either wound is present. No maceration of the skin of the periwound of either wound is noted. BACK: The wounds of the right and left medial buttocks are healing without complications or any signs of infection. ASSESSMENT AND PLAN: 1. Midline abdominal wounds as described above. The patient also has multiple wounds of the right and left medial buttocks, which are healing without complications or any signs of infection. Dressing changes of Medihoney for all wounds will be continued 3 times per week after cleansing and irrigation with the assistance of Home Health. The patient will be seen by Dr. Amato in 1 week. I will also see Mr. Oakley again next week. 2. Diabetes mellitus. The patient's Accu-Chek in clinic today is 111. The patient has been reminded that for optimal wound healing, his blood glucoses should remain below 150. 3. Diverticulitis. Job ID: [id number]
[2018-08-05] MEDS ORDERED: Sodium Chloride 0.9% 15 ML NEB ONE (18:00)
== END 2018-08-05 10:09 | disposition home or self-care (01) ==
LOC: WCC 10:08
PROVIDERS: ATTEND Family Medicine
DX: T81.89XD Other complications of procedures, not elsewhere classified, subsequent encounter (principal); E11.9 Type 2 diabetes mellitus without complications; K57.92 Diverticulitis of intestine, part unspecified, without perforation or abscess without bleeding
CPT/HCPCS: 17250; 97602; A4218

== ENCOUNTER 2018-08-12 09:13 | Outpatient (CLI) | payer OTHER ==
--- NOTE | 2018-08-12 08:55 | PRG ---
DATE OF SERVICE: 08/12/2018 HISTORY: Mr. Adal Oakley is a very pleasant 43-year-old gentleman, who presents to the Wound Center for evaluation of 2 wounds of the abdomen in the midline in addition to multiple wounds of the right and left buttocks. The patient underwent exploratory laparotomy, drainage of an intraabdominal and a preperitoneal abscess, and sigmoid colectomy with end colostomy on 06/17/2018, by Dr. Yonathan Amato. The patient completed a course of negative pressure therapy for the midline abdominal wound and has been receiving dressing changes of Medihoney for the abdominal wounds. The patient is also receiving dressing changes of Medihoney for the wounds of the right and left buttocks. PHYSICAL EXAMINATION: VITAL SIGNS: Temperature 98.1, pulse 47, respirations 16, blood pressure 142/65, Accu-Chek 106. ABDOMEN: Soft, only one midline abdominal wound remains. No purulent drainage is associated with the wound. No erythema of the skin surrounding the wound is present. No maceration of the skin of the periwound is noted. BACK: The wounds of the right and left medial buttock are again healing without complications or any signs of infection. ASSESSMENT AND PLAN: 1. Midline abdominal wounds as described above. The patient also has a wound of the right medial buttock and of the left medial buttock, which are healing without complications or any signs of infection. Dressing changes of Medihoney for all 3 wounds will be continued 3 times per week after cleansing and irrigation with the assistance of Home Health. The patient will be seen by Dr. Amato in 1 week. I will also see Mr. Oakley again next week. 2. Diabetes mellitus. The patient's Accu-Chek in clinic today is 106. The patient has been reminded that for optimal wound healing, his blood glucoses should remain below 150. 3. Diverticulitis. Job ID: [id number]
[2018-08-12] MEDS ORDERED: Sodium Chloride 0.9% 15 ML NEB ONE (18:00)
== END 2018-08-12 09:14 | disposition home or self-care (01) ==
LOC: WCC 09:13
PROVIDERS: ATTEND Family Medicine
DX: T81.89XD Other complications of procedures, not elsewhere classified, subsequent encounter (principal); E11.9 Type 2 diabetes mellitus without complications; K57.92 Diverticulitis of intestine, part unspecified, without perforation or abscess without bleeding
CPT/HCPCS: A4218

== ENCOUNTER 2018-08-16 08:30 | Outpatient (CLI) | payer OTHER ==
--- NOTE | 2018-08-16 10:53 | CT ---
T abdomen and pelvis: 08/16/2018 COMPARISON: 06/15/2018 HISTORY: History of bowel perforation with colostomy in 2019, recent left lower abdominal pain TECHNIQUE: Axial CT imaging at 5 mm intervals from lung bases through pubic symphysis with IV and ora l contrast. Coronal reformatted imaging obtained. FINDINGS: No free intraperitoneal air noted. The imaged lung bases demonstrate no acute findings. There is hypodensity of the hepatic parenchyma suggesting steatosis. Limited assessment of the gallbl adder appears grossly unremarkable. The spleen, pancreas, and adrenal glands are grossly unremarkable. The kidneys demonstrate a grossly unremarkable appearance. A Ericka pouch is noted. A left lower quadrant colostomy is noted as well. The segment of colon ass ociated with the colostomy between the abdominal wall musculature and the skin surface is thick-chasidy d. The fat adjacent to this colostomy within the subcutaneous region demonstrates significant increas ed density suggesting inflammatory change with small volume pericolonic fluid within the colostomy wi thin the subcutaneous fat. Findings are suspicious for inflammatory change of this segment of the col on. There is a focus of gas noted on axial image 50 and coronal image 34 within the colostomy site wh ich appears extraluminal. This could represent gas-forming infection or could be postoperative in ewelina ure. Clinical correlation is essential. No evidence for bowel obstruction is seen. The vascular structures of the abdomen/pelvis appear patent. No retroperitoneal, pelvic, or mesenteri c lymphadenopathy. Review of the osseous structures demonstrates no worrisome lytic or blastic lesion. Immediately adjac ent to the inferior aspect of the sacrum posteriorly and to the left of midline is a focal area of co nspicuous fat density with surrounding inflammatory change measuring 2-3 cm in greatest dimension. Th is may represent an area of developing fat necrosis. This is posterior to and medial to the gluteal m usculature on the left extending to the axial level of the coccygeal tip. IMPRESSION: The colon in the left lower quadrant colostomy is thick walled and there is pericolonic fat stranding suggesting inflammatory change of this segment of colon and adjacent fat. Focus of extraluminal gas within the colostomy subcutaneous fat may represent gas-forming infection. No evidence for bowel obst ruction. These findings were discussed via phone with Dr. Amato at 10:50 AM 08/16/2018. Additional incidental findings as detailed above. This includes possible developing fat necrosis ok cent to the lower sacrum/coccyx on the left.
[2018-08-16] MEDS ORDERED: Iopamidol 370 76% 100 ML VIAL ONE (15:24)
== END 2018-08-16 08:31 | disposition home or self-care (01) ==
LOC: CT 08:30
PROVIDERS: ATTEND Surgery
DX: K66.0 Peritoneal adhesions (postprocedural) (postinfection) (principal); Z93.3 Colostomy status
CPT/HCPCS: 74177; Q9967

== ENCOUNTER 2018-08-19 08:46 | Outpatient (CLI) | payer OTHER ==
--- NOTE | 2018-08-19 10:21 | PRG ---
DATE OF SERVICE: 08/19/2018 HISTORY: Mr. Adal Oakley is a very pleasant 43-year-old gentleman, who presents to the Wound Center for evaluation of 2 wounds of the abdomen in the midline in addition to multiple wounds of the right and left buttocks. The patient underwent exploratory laparotomy, drainage of an intraabdominal and a preperitoneal abscess, and sigmoid colectomy with end colostomy on 06/17/[address] Yonathan Amato. The patient completed a course of negative pressure therapy for the midline abdominal wound and has been receiving dressing changes of Medihoney for the abdominal wound. The patient is also receiving dressing changes of Medihoney for the wounds of the right and left buttocks. PHYSICAL EXAMINATION: VITAL SIGNS: Temperature 97.9, pulse 77, respirations 17, blood pressure 140/89. Accu-Chek 109. ABDOMEN: Soft. The midline abdominal wound has healed completely. BACK: Only one wound of the back in the midline is present between the right and left medial buttocks. This wound continues to heal without complications or any signs of infection. ASSESSMENT AND PLAN: 1. Midline abdominal wound and wounds of right and left buttocks, as stated above only one wound of the back in the midline between the right and left medial buttocks remains. Dressing changes for this wound will be continued 3 times per week after cleansing and irrigation. The patient states he will be performing his own dressing changes. This wound has almost healed completely and Mr. Oakley will be discharged from clinic today with followup on a p.r.n. basis. 2. Diabetes mellitus. The patient's Accu-Chek in clinic today is 109. The patient has been reminded that for optimal wound healing, blood glucoses should remain below 150. 3. Diverticulitis. Job ID: [id number]
[2018-08-19] MEDS ORDERED: Sodium Chloride 0.9% 15 ML NEB ONE (18:00)
== END 2018-08-19 08:47 | disposition home or self-care (01) ==
LOC: WCC 08:46
PROVIDERS: ATTEND Family Medicine
DX: S31.829D Unspecified open wound of left buttock, subsequent encounter (principal); S31.819D Unspecified open wound of right buttock, subsequent encounter; E11.9 Type 2 diabetes mellitus without complications; K57.92 Diverticulitis of intestine, part unspecified, without perforation or abscess without bleeding
CPT/HCPCS: A4218

== ENCOUNTER 2018-12-06 11:00 | Day surgery (SDC) | payer OTHER ==
[2018-12-05 12:19] VITALS: BMI 41.8
--- NOTE | 2018-12-06 09:51 | HP ---
HISTORY OF PRESENT ILLNESS: This is a 43-year-old male, who has had acute diverticulitis rupture and had a sigmoid resection. He also has a colostomy. The patient is to have a colostomy reversal in the near future. He was referred to me by Dr. Aamto for a colonoscopy before colostomy reversal. ALLERGIES: LEVAQUIN AND PENICILLIN. SOCIAL HISTORY: The patient is a former smoker. He does not drink alcohol. MEDICAL ILLNESSES: 1. Obesity. 2. Hypertension. 3. Diabetes mellitus. 4. Hyperlipidemia. PAST SURGICAL HISTORY: Status post sigmoid colectomy and colostomy a few months ago. PHYSICAL EXAMINATION: GENERAL: He is obese, appears comfortable. VITAL SIGNS: Pulse is 70 and blood pressure 130/80. HEENT: Conjunctivae are clear. CARDIOVASCULAR SYSTEM: First and second heart sounds are normal. LUNGS: Clear to auscultation. ABDOMEN: Soft. No organomegaly. No tenderness. No masses. EXTREMITIES: Reveal no edema. ADMITTING DIAGNOSIS: Status post sigmoid resection, temporary colostomy. PLAN: The plan is to undergo colonoscopy before his colostomy reversal. Job ID: [id number]
--- NOTE | 2018-12-06 19:34 | OP ---
DATE OF PROCEDURE: 12/06/2018 OPERATIVE PROCEDURE: Colonoscopy through colostomy. PREOPERATIVE DIAGNOSES: This is a 43-year-old male with perforated diverticular disease, status post sigmoid resection and colostomy. This was done about 3 months ago. The patient is undergoing a colonoscopy before colostomy reversal. POSTOPERATIVE DIAGNOSES: 1. Scattered diverticula present in the sigmoid colon, descending colon. 2. Normal cecum, ascending colon, and transverse colon. DESCRIPTION OF PROCEDURE: The patient was placed on his back and was given sedation by Anesthesia Department. A digital exam was performed with the colostomy opening. No lesions felt. A Pentax video colonoscope was introduced into the rectum and advanced into the cecum. In the appendicular opening, ileocecal valve, and cecum, no pathology seen. The ascending colon, hepatic flexure, transverse colon no pathology. In the descending colon and at the sigmoid colon there are several mild diverticulosis. Job ID: [id number]
--- NOTE | 2018-12-06 19:57 | OP ---
DATE OF PROCEDURE: 12/06/2018 OPERATIVE PROCEDURE: Sigmoidoscopy. PREOPERATIVE DIAGNOSES: Sigmoid resection, status post colostomy. The patient is undergoing colostomy reversal. The patient is undergoing sigmoidoscopy before the surgery. DESCRIPTION OF PROCEDURE: The patient was placed on the left lateral position and was given sedation by Anesthesia Department. A rectal exam was done before the scope was advanced into the rectum. No lesions felt on rectal exam. A Pentax video colonoscope was introduced into the rectum and advanced to a distance of 30 cm. The mucosa appeared normal. The patient had fairly good amount of mucus plugs and retained stool__. There was no inflammatory change seen. Rectum did show hemorrhoids. DISCHARGE PLANNING: This is a 43-year-old male, who has had sigmoid colectomy and a colostomy in July of 2018 for perforated diverticular disease. He underwent colonoscopy through colostomy and the mucosa appears very healthy and no inflammatory change seen. DISCHARGE RECOMMENDATIONS: 1. He is advised to call me if he develops abdominal pain, hematochezia. 2. Follow up with Dr. Amato. Job ID: [id number] [facility]
== END 2018-12-06 15:37 | disposition home or self-care (01) ==
LOC: SDC 11:00
PROVIDERS: ATTEND Internal Medicine Gastroenterology
PROC: 0DJD8ZZ Inspection of Lower Intestinal Tract, Via Natural or Artificial Opening Endoscopic (ICD-10-PCS; principal; 2018-12-06)
DX: Z01.818 Encounter for other preprocedural examination (principal); K57.30 Diverticulosis of large intestine without perforation or abscess without bleeding; I10 Essential (primary) hypertension; E11.9 Type 2 diabetes mellitus without complications; E78.5 Hyperlipidemia, unspecified; E66.9 Obesity, unspecified; Z68.41 Body mass index [BMI] 40.0-44.9, adult; Z87.891 Personal history of nicotine dependence; Z88.0 Allergy status to penicillin; Z88.1 Allergy status to other antibiotic agents; Z90.49 Acquired absence of other specified parts of digestive tract
CPT/HCPCS: 36416

== ENCOUNTER 2019-01-03 08:39 | Inpatient (IN) | payer OTHER ==
[2019-01-03] MEDS ORDERED: Fentanyl 250 MCG/5 ML VIAL ONE (10:08)
[2019-01-03] MEDS ORDERED: Bupivacaine/Epinephrine 0.25% 30 ML VIAL ONE (10:12)
[2019-01-03 10:29] LABS: #Basophils 0.1 thou/uL (0.0-0.2); #Eosinphils 0.1 thou/uL (0.0-0.7); #Lymphocytes 2.3 thou/uL (1.20-3.40); #Monocytes 0.6 thou/uL (0.11-0.59); %Basophils 1.1 % (0.0-1.0); %Eosinophils 1.5 % (0.0-10.0); %Lymphocytes 28.8 % (21.0-51.0); %Monocytes 6.8 % (0.0-10.0); %Neutrophils 61.8 % (42.0-75.0); Hemoglobin 15.3 g/dL (14.0-18.0); Mean Corpuscular HGB CONC 34.3 g/dL (32.0-36.0); Mean Corpuscular Hemoglobin 30.9 pg (27.0-31.0); Mean Platelet Volume 7.9 fL (7.4-10.4); Platelet Count 236 thou/uL (130-400); RBC Distribution Width 12.4 % (11.5-14.5); Red Blood Cell (RBC) Count 4.96 mill/uL (4.70-6.10); White Blood Cell (WBC) Count 8.2 thou/uL (4.8-10.8)
[2019-01-03] MEDS ORDERED: Midazolam HCl 2 mg/2 ml Vial ONE (10:35)
[2019-01-03 10:40] LABS: Hemoglobin A1c 5.5 % (4.0-6.0)
[2019-01-03 10:52] LABS: Anion Gap 12 mmol/L (10-20); BUN (Urea Nitrogen) 10 mg/dL (8.9-20.6); Calc. Creatinine Clearance 241 mL/min (70-130); Calcium 9.4 mg/dL (7.8-10.44); Carbon Dioxide 26 mmol/L (22-29); Chloride 105 mmol/L (98-107); Estimated GFR-MDRD Greater than 90; Glucose 99 mg/dL (70-105); Potassium 4.3 mmol/L (3.5-5.1); Sodium 139 mmol/L (136-145)
[2019-01-03] MEDS ORDERED: Sodium Chloride 0.9% 100 ML ONE (11:06)
[2019-01-03] MEDS ORDERED: cefOXitin 2 GM VIAL ONE ×3 (11:06→15:31)
[2019-01-03] MEDS ORDERED: Promethazine HCl 25 MG/ML VIAL SLOW IVP PRN (15:04)
[2019-01-03] MEDS ORDERED: Ondansetron HCl/PF 4 MG/2 ML Vial IVP PRN (15:04)
[2019-01-03] MEDS ORDERED: Promethazine HCl 25 MG/ML VIAL IM PRN ×3 (15:04→17:08)
[2019-01-03] MEDS ORDERED: Fentanyl 100 MCG/2 ML VIAL ONE ×4 (15:26→17:27)
[2019-01-03] MEDS ORDERED: Morphine 2 MG/ML SYRINGE SLOW IVP PRN (16:51)
[2019-01-03] MEDS ORDERED: Morphine 4 MG/ML VIAL SLOW IVP PRN (16:51)
[2019-01-03] MEDS ORDERED: hydrALAZINE 20 MG/ML VIAL SLOW IVP PRN (16:51)
[2019-01-03] MEDS ORDERED: Insulin Regular 300 UNITS/3 ML VIAL SC PRN ×2 (16:51→16:59)
[2019-01-03] MEDS ORDERED: Dextrose 5% in Water 1,000 ML IV PRN (16:59)
[2019-01-03] MEDS ORDERED: Dextrose 50% Abboject 50 ML SYRINGE SLOW IVP PRN (16:59)
[2019-01-03] MEDS ORDERED: Lidocaine 1% PF 5 ML VIAL ONE (17:06)
[2019-01-03] MEDS ORDERED: Ondansetron PF 4 MG/2 ML Vial ONE (17:06)
[2019-01-03] MEDS ORDERED: Glycopyrrolate 0.2 MG/ML 5 ML SYRINGE ONE (17:06)
[2019-01-03] MEDS ORDERED: Labetalol HCl 100 MG/20 ML VIAL ONE (17:06)
[2019-01-03] MEDS ORDERED: PROPOFOL 200 MG/20 ML VIAL ONE (17:06)
[2019-01-03] MEDS ORDERED: Vecuronium 10 MG VIAL ONE (17:06)
[2019-01-03] MEDS ORDERED: Rocuronium Bromide 10 MG/ML (10ML VIAL) ONE (17:06)
[2019-01-03] MEDS ORDERED: Ketorolac Tromethamine 30 MG/ML VIAL ONE (17:06)
[2019-01-03] MEDS ORDERED: diphenhydrAMINE 50 MG/ML VIAL IM PRN (17:08)
[2019-01-03] MEDS ORDERED: fentaNYL Citrate/PF 2,000 MCG in Sodium Chloride 0.9% 60 ML IV PRN (17:08)
[2019-01-03] MEDS ORDERED: Zolpidem Tartrate 5 MG TAB PO PRN (17:08)
[2019-01-03] MEDS ORDERED: diphenhydrAMINE 50 MG/ML VIAL IVP PRN (17:08)
[2019-01-03] MEDS ORDERED: Naloxone HCl 0.4 mg/ml Vial IV PRN (17:08)
[2019-01-03] MEDS ORDERED: Ondansetron PF 4 MG/2 ML Vial IVP PRN (17:08)
[2019-01-03] MEDS ORDERED: diphenhydrAMINE 25 MG CAP PO PRN (17:08)
[2019-01-03] MEDS ORDERED: Communication Order-Pharmacy FS SCH (17:15)
[2019-01-03] MEDS ORDERED: Promethazine HCl 25 MG/ML VIAL ONE (17:27)
[2019-01-03] MEDS: Ketorolac Tromethamine 30 MG/ML VIAL IVP SCH ×2 (19:42→23:38)
[2019-01-03] MEDS: Acetaminophen 1,000 MG in Premix Bag 1 BAG IVPB SCH ×2 (19:43→23:37)
[2019-01-03] MEDS: D5 1/2 NS w/20 mEq KCL 1,000 ML IV SCH ×2 (19:43→20:52)
[2019-01-03] MEDS ORDERED: cefOXitin 2 GM in Sodium Chloride 0.9% 100 ML IVPB SCH ×2 (20:00→23:00)
[2019-01-03] MEDS: Famotidine/PF 20 mg/2ml Vial SLOW IVP SCH (20:51)
[2019-01-03] MEDS: Atorvastatin Calcium 10 MG TAB PO SCH (20:56)
[2019-01-03] MEDS: Famotidine 20 MG TAB PO SCH (21:04)
[2019-01-03] MEDS: cefOXitin 2 GM in Sodium Chloride 0.9% 100 ML IVPB SCH (22:06)
[2019-01-03 22:54] VITALS: BMI 47.4
[2019-01-04 05:15] LABS: #Basophils 0.1 thou/uL (0.0-0.2); #Monocytes 0.8 thou/uL (0.11-0.59); #Neutrophils 10.2 thou/uL (1.40-6.50); %Basophils 0.4 % (0.0-1.0); %Eosinophils 0.2 % (0.0-10.0); %Lymphocytes 15.6 % (21.0-51.0); %Monocytes 6.1 % (0.0-10.0); %Neutrophils 77.8 % (42.0-75.0); Hemoglobin 13.6 g/dL (14.0-18.0); Mean Corpuscular HGB CONC 33.6 g/dL (32.0-36.0); Mean Corpuscular Hemoglobin 30.9 pg (27.0-31.0); Mean Corpuscular Volume 91.9 fL (78.0-98.0); Mean Platelet Volume 7.9 fL (7.4-10.4); Platelet Count 204 thou/uL (130-400); RBC Distribution Width 12.6 % (11.5-14.5); Red Blood Cell (RBC) Count 4.41 mill/uL (4.70-6.10); White Blood Cell (WBC) Count 13.1 thou/uL (4.8-10.8)
[2019-01-04] MEDS: Acetaminophen 1,000 MG in Premix Bag 1 BAG IVPB SCH ×2 (05:42→12:03)
[2019-01-04] MEDS: Ketorolac Tromethamine 30 MG/ML VIAL IVP SCH ×4 (05:42→23:37)
[2019-01-04 05:45] LABS: Anion Gap 9 mmol/L (10-20); BUN (Urea Nitrogen) 10 mg/dL (8.9-20.6); Calc. Creatinine Clearance 288 mL/min (70-130); Calcium 8.3 mg/dL (7.8-10.44); Carbon Dioxide 25 mmol/L (22-29); Chloride 107 mmol/L (98-107); Estimated GFR-MDRD Greater than 90; Glucose 124 mg/dL (70-105); Potassium 3.8 mmol/L (3.5-5.1); Sodium 137 mmol/L (136-145)
[2019-01-04] MEDS: cefOXitin 2 GM in Sodium Chloride 0.9% 100 ML IVPB SCH (06:26)
[2019-01-04] MEDS: D5 1/2 NS w/20 mEq KCL 1,000 ML IV SCH ×3 (06:35→23:45)
[2019-01-04] MEDS: Saccharomyces boulardii 250 MG CAP PO SCH (08:32)
[2019-01-04] MEDS: Famotidine 20 MG TAB PO SCH ×2 (08:32→20:02)
[2019-01-04] MEDS: Lisinopril 20 MG TAB PO SCH (08:32)
[2019-01-04] MEDS: Famotidine/PF 20 mg/2ml Vial SLOW IVP SCH ×2 (08:32→20:03)
[2019-01-04] MEDS: Enoxaparin Sodium 40 MG/0.4 ML SYRINGE SC SCH (08:38)
--- NOTE | 2019-01-04 10:58 | OP ---
DATE OF PROCEDURE: 01/03/2019 PROCEDURE PERFORMED: Colostomy takedown. PREOPERATIVE DIAGNOSIS: Unwanted colostomy. POSTOPERATIVE DIAGNOSIS: Unwanted colostomy. HISTORY: Mr. Oakley is a 43-year-old gentleman who underwent a Ericka's procedure for diverticular abscess resulting in small-bowel obstruction. He recovered well from this and presents to have his colostomy taken down. He has a parastomal hernia, which is going to be repaired at the time of the colostomy takedown. DESCRIPTION OF PROCEDURE: After informed consent was obtained and appropriate preoperative antibiotics and bowel prep administered, the patient was taken to the operating room. He was placed in supine position and general endotracheal anesthesia was administered. The stomach was decompressed with the OG tube and the bladder decompressed with a Morfin catheter. The colostomy was sutured closed at the skin and the patient was prepped and draped in the lithotomy position. After draping, the colostomy site was excluded from the field with a Tegaderm. Local anesthesia was infused to the skin and subcutaneous tissues at the level of the umbilicus and a 6 cm periumbilical incision was made. Dissection was carried down to the fascia, which was incised. The peritoneal cavity was entered under direct vision and some filmy omental adhesions swept down clearing the space for the GelPort. The GelPort was placed and carbon dioxide gas insufflated to an intraabdominal pressure of 15, which the patient tolerated well. The abdomen was carefully examined and there were found to be additional omental adhesions near the midline, but the lateral abdomen was free of any significant adhesions. Two dissecting trocars were placed in the right lateral abdomen under direct laparoscopic vision and the remaining omental adhesions taken down using LigaSure. The colostomy was healthy. There were some omental adhesions within the parastomal hernia, which were taken down using the LigaSure device. No other adhesions in that area. The colon was mobilized medially and the splenic flexure mobilized downward through the avascular plane following which the descending colon appeared lax enough to reach down to the rectal stump. There were some small bowel adhesions in the pelvis, which were taken down through the avascular plane allowing the small bowel to be drawn out of the pelvis and the rectal stump identified. The colostomy was divided at the level of the fascia with a laparoscopic stapler and the end externalized through the GelPort. This was draped off with towels and the staple line excised. The descending colon accepted up to a 29 mm Sizer, so a 29 mm EEA stapler was obtained. A pursestring suture was placed around the end of the descending colon and the anvil placed into the descending colon and the pursestring suture secured. The bowel was cleared over the anvil to allow a good anastomosis. The end was dropped down into the abdomen and easily reached down to the rectal pouch without tension. The Sizers were then passed to the end of the rectal pouch without difficulty. The 29 mm EEA stapler was advanced to the end of the rectal pouch and the stalk advanced through the end of the rectal pouch and mated to the anvil. This was confirmed to be in correct orientation without twisting of the bowel. The stapler was closed and fired and two complete donuts confirmed on the back table. Saline was instilled into the pelvis and gas insufflated into the rectum, distending the anastomosis. At 1st, a few bubbles were seen, but on repeat interrogation of the anastomosis, there was no bubbling seen from the anastomosis. The anastomosis was distended with gas under saline three additional times and carefully examined and no evidence of leak seen. It was felt that the initial gas had been displaced from the tissues around the colon with distention of the colon. The staple line was carefully examined and a Lembert suture placed in the region where the few bubbles were initially thought to originate; however, the staple line appeared healthy and intact throughout. The abdomen was irrigated and the small intestine run. A few small adhesions were taken down, but there were no obstructing adhesions encountered. Small bowel was confirmed to be in its normal orientation without twisting. The omentum was drawn down over the bowel and the 12 mm port closed under direct laparoscopic vision with a 0 Vicryl suture on a granny needle. The lateral trocars were then removed and hemostasis verified. The GelPort was removed and Seprafilm was placed beneath the colostomy site and beneath the midline incision after drying the omentum back down over that area, however, the patient had a very scant omentum. The fascia was closed under direct vision with a running PDS suture and the wound copiously irrigated. Subcutaneous tissues were reapproximated with 3-0 Monocryl suture and the skin was closed with a running 4-0 Monocryl suture. The laparoscopic skin incisions were closed with 4-0 Monocryl suture and attention turned to removal of the colostomy repair of the parastomal hernia. The previously closed colostomy was excised with an elliptical incision. Dissection was carried down to the fascia and the part of the colon within the colostomy was removed and discarded. The hernia sac was then excised. The posterior rectus sheath was reapproximated under direct vision with PDS suture as was the anterior rectus sheath. The subcutaneous tissues were reapproximated at intervals with 3-0 Monocryl suture and the skin reapproximated at intervals with 4-0 Monocryl subcuticular sutures. Telfa rené were placed into the subcutaneous space and a gauze and Tegaderm dressing were placed. The patient was extubated and taken to Recovery in good condition. Estimated blood loss was minimal. There were no complications. There were no specimens. TAP blocks were placed in the operating room after closure by Anesthesia for postoperative pain control. Job ID: [id number]
[2019-01-04] MEDS: Atorvastatin Calcium 10 MG TAB PO SCH (20:02)
--- NOTE | 2019-01-04 20:07 | PDOC.GSPN ---
Surgery Progress Note: Subj - Subjective Narrative: Patient feels pretty good. 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 He has occasional mild nausea but is tolerating sips of clears. No flatus yet. The colostomy site dressings have been changed. No other drainage from the other incisions. Vital signs are good and blood sugars are in the low 100s. Postop H&H is stable. Incisions are clean and his abdomen is soft and nondistended. Assessment/plan: Doing well status post colostomy takedown. Awaiting return of bowel function. Surgery Progress Note: Obj - Vital signs Vital signs: Vital Signs - Most Recent Temp Pulse Resp BP Pulse Ox 98.5 F 87 20 166/81 H 97 01/04/19 16:30 01/04/19 16:30 01/04/19 16:30 01/04/19 16:30 01/04/19 16:30 Surgery Progress Note: Results - Labs Result Diagrams: 01/04/19 04:57 01/04/19 04:57 Lab results: Laboratory Results - last 24 hr 01/04/19 01/04/19 11:14 16:29 POC Glucose 118 H 109
[2019-01-05] MEDS: Ondansetron PF 4 MG/2 ML Vial IVP PRN ×2 (02:14→08:04)
[2019-01-05] MEDS: Ketorolac Tromethamine 30 MG/ML VIAL IVP SCH ×3 (06:00→17:55)
[2019-01-05] MEDS: Famotidine 20 MG TAB PO SCH ×2 (08:06→20:01)
[2019-01-05] MEDS: Saccharomyces boulardii 250 MG CAP PO SCH (08:06)
[2019-01-05] MEDS: Enoxaparin Sodium 40 MG/0.4 ML SYRINGE SC SCH (08:06)
[2019-01-05] MEDS: Lisinopril 20 MG TAB PO SCH (08:06)
[2019-01-05] MEDS: Famotidine/PF 20 mg/2ml Vial SLOW IVP SCH ×2 (08:08→20:02)
[2019-01-05] MEDS ORDERED: Fentanyl 100 MCG/2 ML VIAL SLOW IVP PRN ×2 (09:03)
[2019-01-05] MEDS ORDERED: traMADol HCl 50 MG TAB PO PRN ×2 (09:03)
[2019-01-05] MEDS: D5 1/2 NS w/20 mEq KCL 1,000 ML IV SCH (09:23)
--- NOTE | 2019-01-05 09:23 | PRG ---
DATE OF SERVICE: 01/05/2019 SUBJECTIVE: Mr. Oakley had mild nausea this morning. He overall had been tolerating the clear liquids without difficulty. He is ambulating frequently, and he is able to urinate on his own without difficulty. OBJECTIVE: VIAL SIGNS: Blood pressure 166/98, pulse 84, respirations 18. GENITOURINARY: He is passing gas and has had a couple liquid stools. ABDOMEN: Soft, minimally distended. Occasional bowel sounds. Wounds are healing well without evidence of infection. ASSESSMENT: Postoperative day two colostomy takedown. 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 Decrease the IV fluid rate. Advance to full liquids. Continue to encourage ambulation. Job ID: [id number]
[2019-01-05] MEDS: Acetaminophen 1,000 MG in Premix Bag 1 BAG IVPB PRN ×2 (14:42→21:10)
[2019-01-05] MEDS: Atorvastatin Calcium 10 MG TAB PO SCH (20:01)
[2019-01-06] MEDS: D5 1/2 NS w/20 mEq KCL 1,000 ML IV SCH ×3 (01:25→18:31)
[2019-01-06] MEDS: Acetaminophen 1,000 MG in Premix Bag 1 BAG IVPB PRN (04:21)
[2019-01-06] MEDS: Famotidine/PF 20 mg/2ml Vial SLOW IVP SCH ×2 (08:31→20:47)
[2019-01-06] MEDS: Famotidine 20 MG TAB PO SCH ×2 (08:35→20:47)
[2019-01-06] MEDS: Enoxaparin Sodium 40 MG/0.4 ML SYRINGE SC SCH (08:35)
[2019-01-06] MEDS: Saccharomyces boulardii 250 MG CAP PO SCH (08:35)
[2019-01-06] MEDS: Lisinopril 20 MG TAB PO SCH (08:35)
[2019-01-06] MEDS ORDERED: INSULIN DETEMIR 6 UNIT SQ SCH (09:00)
[2019-01-06] MEDS: HYDROcodone/Acetaminophen 7.5/325 mg Tablet PO PRN ×4 (09:19→22:51)
[2019-01-06] MEDS: Insulin Glargine 6 UNITS in Pre-Filled Syringe 1 EACH SC SCH ×2 (09:52→20:47)
--- NOTE | 2019-01-06 16:02 | PDOC.GSPN ---
Surgery Progress Note: Subj - Subjective Narrative: Patient feels pretty good. 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 He states the tramadol doesn't seem to help with this. He is still walking and he has been passing gas but he denies any bowel movements yet. He had minimal nausea yesterday and seems to be doing fine from a nausea standpoint today, although he still doesn't have much of an appetite. Blood sugars were up this morning. He is tolerating full liquids. Assessment/plan: Doing well status post colostomy takedown. Passing gas but no bowel movement yet. We'll continue on full liquid diet for now. I am going to restart his long-acting insulin and half his baseline dose since he is not taking much by mouth. I ordered Simms for pain since tramadol doesn't seem to help. Surgery Progress Note: Obj - Vital signs Vital signs: Vital Signs - Most Recent Temp Pulse Resp BP Pulse Ox 98.5 F 71 14 165/93 H 96 01/06/19 11:29 01/06/19 11:29 01/06/19 11:29 01/06/19 11:29 01/06/19 11:29 Surgery Progress Note: Results - Labs Result Diagrams: 01/04/19 04:57 01/04/19 04:57 Lab results: Laboratory Results - last 24 hr 01/06/19 01/06/19 01/06/19 05:30 09:54 11:25 POC Glucose 162 H 149 H 145 H
[2019-01-06] MEDS: Atorvastatin Calcium 10 MG TAB PO SCH (20:47)
[2019-01-07] MEDS: HYDROcodone/Acetaminophen 7.5/325 mg Tablet PO PRN ×4 (05:54→23:39)
[2019-01-07] MEDS: Lisinopril 20 MG TAB PO SCH (08:17)
[2019-01-07] MEDS: Saccharomyces boulardii 250 MG CAP PO SCH (08:17)
[2019-01-07] MEDS: Famotidine 20 MG TAB PO SCH ×2 (08:17→20:54)
[2019-01-07] MEDS: Famotidine/PF 20 mg/2ml Vial SLOW IVP SCH ×2 (08:18→20:54)
[2019-01-07] MEDS: Insulin Glargine 6 UNITS in Pre-Filled Syringe 1 EACH SC SCH ×2 (09:41→20:54)
[2019-01-07] MEDS: Enoxaparin Sodium 40 MG/0.4 ML SYRINGE SC SCH (09:41)
[2019-01-07] MEDS: D5 1/2 NS w/20 mEq KCL 1,000 ML IV SCH ×2 (09:47→23:40)
--- NOTE | 2019-01-07 16:17 | PDOC.GSPN ---
Surgery Progress Note: Subj - Subjective Narrative: Mr. Oakley is feeling well. He is no longer having any nausea. His pain is tolerable. He has been walking a lot more so he is a little sore and he is having a little bit of cramping but he thinks this is because he is starting to have the urge to have a bowel movement. No bowel movement yet but he is passing lots of gas. He is afebrile and his vital signs are okay. His incisions look good and he has bowel sounds. Assessment/plan: Doing well status post colostomy takedown. Awaiting return of full bowel function. He has declined stool softeners but he is drinking some prune juice. Surgery Progress Note: Obj - Vital signs Vital signs: Vital Signs - Most Recent Temp Pulse Resp BP Pulse Ox 98.7 F 70 18 131/77 96 01/07/19 15:33 01/07/19 15:33 01/07/19 15:33 01/07/19 15:33 01/07/19 15:33 Surgery Progress Note: Results - Labs Result Diagrams: 01/04/19 04:57 01/04/19 04:57 Lab results: Laboratory Results - last 24 hr 01/07/19 01/07/19 05:52 13:15 POC Glucose 116 H 122 H
[2019-01-07] MEDS: Atorvastatin Calcium 10 MG TAB PO SCH (20:54)
[2019-01-08] MEDS: Diazepam 5 MG TAB PO PRN ×2 (00:03→22:27)
[2019-01-08] MEDS ORDERED: Polyethylene Glycol 3350 17 GM Packet PO SCH (09:00)
[2019-01-08] MEDS: Lisinopril 20 MG TAB PO SCH (09:09)
[2019-01-08] MEDS: Docusate 100 MG CAP PO SCH ×2 (09:09→20:17)
[2019-01-08] MEDS: Enoxaparin Sodium 40 MG/0.4 ML SYRINGE SC SCH (09:09)
[2019-01-08] MEDS: Saccharomyces boulardii 250 MG CAP PO SCH (09:09)
[2019-01-08] MEDS: Famotidine 20 MG TAB PO SCH ×2 (09:09→20:17)
[2019-01-08] MEDS: Insulin Glargine 6 UNITS in Pre-Filled Syringe 1 EACH SC SCH ×2 (09:10→21:34)
--- NOTE | 2019-01-08 09:33 | PDOC.GSPN ---
Surgery Progress Note: Subj - Subjective Patient reports: positive flatus Narrative: Patient is hungry. Denies nausea or significant pain. He does have some soreness around his colostomy site. Darcie were removed and the site looks good. Other incisions are healed. Abdomen is soft and nondistended with only minimal zena-incisional tenderness. He is passing flatus but has not yet had a bowel movement. He is walking frequently. Aortic docusate and MiraLAX. I anticipate that he will begin having bowel movements soon. I advanced his diet to GI soft. Surgery Progress Note: Obj - Vital signs Vital signs: Vital Signs - Most Recent Temp Pulse Resp BP Pulse Ox 98.7 F 72 18 140/93 H 97 01/08/19 07:45 01/08/19 07:45 01/08/19 07:45 01/08/19 07:45 01/08/19 07:45 Surgery Progress Note: Results - Labs Result Diagrams: 01/04/19 04:57 01/04/19 04:57 Lab results: Laboratory Results - last 24 hr 01/08/19 05:33 POC Glucose 112 H
[2019-01-08] MEDS: Famotidine/PF 20 mg/2ml Vial SLOW IVP SCH ×2 (10:33→19:41)
[2019-01-08] MEDS: HYDROcodone/Acetaminophen 7.5/325 mg Tablet PO PRN ×3 (11:52→22:26)
[2019-01-08] MEDS: Atorvastatin Calcium 10 MG TAB PO SCH (20:17)
[2019-01-08] MEDS: Polyethylene Glycol 3350 17 GM Packet PO SCH (20:17)
[2019-01-09 07:21] VITALS: TEMP 98.4
[2019-01-09] MEDS: Lisinopril 20 MG TAB PO SCH (09:14)
[2019-01-09] MEDS: Famotidine 20 MG TAB PO SCH (09:14)
[2019-01-09] MEDS: Polyethylene Glycol 3350 17 GM Packet PO SCH (09:14)
[2019-01-09] MEDS: Docusate 100 MG CAP PO SCH (09:14)
[2019-01-09] MEDS: Saccharomyces boulardii 250 MG CAP PO SCH (09:14)
[2019-01-09] MEDS: Insulin Glargine 6 UNITS in Pre-Filled Syringe 1 EACH SC SCH (09:15)
[2019-01-09] MEDS: HYDROcodone/Acetaminophen 7.5/325 mg Tablet PO PRN (09:15)
[2019-01-09] MEDS: Enoxaparin Sodium 40 MG/0.4 ML SYRINGE SC SCH (09:15)
[2019-01-09] MEDS: Famotidine/PF 20 mg/2ml Vial SLOW IVP SCH (09:16)
--- NOTE | 2019-01-09 10:55 | RAD ---
KUB: HISTORY: Postoperative colostomy reversal. COMPARISON: 06/21/2018. FINDINGS: There is some gas and fecal material in the colon. No free intraperitoneal air. Minimal vertically oriented linear parenchymal changes in the lung bases, probably subsegmental atelectasis. Several lo ops of borderline dilated small bowel with air fluid levels, nonspecific. No overt calculus. IMPRESSION: Several borderline-size small bowel loops with air and fluid levels, nonspecific. No free intraperit [place] air. No evidence for high-grade obstruction. POS: OSWALDO
[2019-01-09 12:45] VITALS: BP 132/85
== END 2019-01-09 13:30 | disposition home or self-care (01) | DRG 331 ==
LOC: SURG A 10:02
PROVIDERS: ADMIT Surgery; ATTEND Surgery
PROC: 0DQM0ZZ Repair Descending Colon, Open Approach (ICD-10-PCS; principal; 2019-01-03)
PROC: 0WQF0ZZ Repair Abdominal Wall, Open Approach (ICD-10-PCS; 2019-01-03)
DX: Z43.3 Encounter for attention to colostomy (principal); K43.5 Parastomal hernia without obstruction or gangrene; F41.9 Anxiety disorder, unspecified; J45.909 Unspecified asthma, uncomplicated; F32.9 Major depressive disorder, single episode, unspecified; E11.9 Type 2 diabetes mellitus without complications; K66.0 Peritoneal adhesions (postprocedural) (postinfection); R11.0 Nausea; Z88.0 Allergy status to penicillin; Z87.891 Personal history of nicotine dependence; Z79.4 Long term (current) use of insulin
CPT/HCPCS: 36415; 36416; 74018; 80048; 83036; 85025; J0131; J0360; J0694; J1650; J1815; J1885; J2001; J2250; J2405; J2550; J2704; J3010; J3490; S0028

== ENCOUNTER 2019-03-13 09:34 | Outpatient (CLI) | payer OTHER ==
--- NOTE | 2019-03-13 11:08 | PRG ---
DATE OF SERVICE: 03/13/2019 HISTORY: Mr. Adal Oakley is a very pleasant 43-year-old gentleman, who presents to the [facility] for evaluation of a nonhealing surgical wound of the abdomen in the midline subsequent to colostomy takedown on 01/03/[address] Yonathan Amato. The patient is referred to the Wound Center by Dr. Amato for the initiation of negative pressure therapy for the nonhealing surgical wound. The patient states that he has been receiving dressing changes of 0.25 inch gauze for his midline abdominal wound. The patient has no other complaints today. He denies any fever or chills. PHYSICAL EXAMINATION: VITAL SIGNS: Temperature 98.0, pulse 63, respirations 19, and blood pressure 144/81. Accu-Chek 97. ABDOMEN: Soft. A midline abdominal wound is present, which measures approximately 0.4 x 0.2 cm. The depth of the wound is approximately 2 cm. No purulent drainage is associated with the wound. No erythema of the skin surrounding the wound is present. No maceration of the skin of the periwound is noted. ASSESSMENT AND PLAN: 1. Nonhealing surgical wound of abdomen in the midline as described above. Negative pressure therapy will be initiated today with dressing changes of the wound VAC here in the Wound Center. I will see Mr. Oakley again in 1 week. At this time, consideration will be given to obtaining a culture of the wound if the wound is still present at this time. 2. Diabetes mellitus. The patient's Accu-Chek in clinic today is 97. The patient has been reminded that for optimal wound healing, his blood glucoses should remain below 150. 3. Diverticulitis. Job ID: [id number]
== END 2019-03-13 09:35 | disposition home or self-care (01) ==
LOC: WCC 09:34
PROVIDERS: ATTEND Family Medicine
DX: T81.89XD Other complications of procedures, not elsewhere classified, subsequent encounter (principal); E11.9 Type 2 diabetes mellitus without complications; K57.92 Diverticulitis of intestine, part unspecified, without perforation or abscess without bleeding
CPT/HCPCS: A4218

== ENCOUNTER 2019-03-19 08:56 | Outpatient (CLI) | payer OTHER ==
--- NOTE | 2019-03-19 09:20 | PRG ---
DATE OF SERVICE: 03/19/2019 HISTORY: Mr. Adal Oakley is a very pleasant 44-year-old gentleman, who presents to the [facility]ound Center for evaluation of a nonhealing surgical wound of the abdomen in the midline subsequent to colostomy takedown on 01/03/[address] Yonathan Amato. The patient was referred to the Wound Center by Dr. Amato for the initiation of negative pressure therapy for the nonhealing surgical wound. Prior to being seen in the Wound Center, the patient stated he had been receiving dressing changes of quarter inch gauze for his midline abdominal wound. After being seen in the Wound Center on 03/13/2019, negative pressure therapy was initiated. The patient has no complaints today. He denies any fever or chills. PHYSICAL EXAMINATION: VITAL SIGNS: Temperature 98, pulse 78, respirations 18, and blood pressure 159/89. Accu-Chek 101. ABDOMEN: Soft. The midline abdominal wound has healed completely. ASSESSMENT AND PLAN: 1. Nonhealing surgical wound of abdomen in the midline. As stated above, the wound has healed completely. Mr. Oakley will be discharged from clinic today with followup on a p.r.n. basis. 2. Diabetes mellitus. The patient's Accu-Chek in clinic today is 101. 3. Diverticulitis. Job ID: [id number]
[2019-03-19] MEDS ORDERED: Sodium Chloride 0.9% 15 ML NEB ONE (18:00)
== END 2019-03-19 08:57 | disposition home or self-care (01) ==
LOC: WCC 08:56
PROVIDERS: ATTEND Family Medicine
DX: T81.89XD Other complications of procedures, not elsewhere classified, subsequent encounter (principal); E11.9 Type 2 diabetes mellitus without complications; K57.92 Diverticulitis of intestine, part unspecified, without perforation or abscess without bleeding
CPT/HCPCS: 97602; A4218